=== PATIENT | male | born 1945 | race Caucasian/White ===

== ENCOUNTER 2018-05-15 19:03 | Inpatient (IN) ==
--- NOTE | 2018-05-15 19:27 | Emergency Department Note ---
Weakness HPI - General Chief complaint: Weakness Stated complaint: weakness Time Seen by Provider: 05/15/18 19:12 Source: patient Mode of arrival: wheelchair Limitations: no limitations - History of Present Illness HPI Narrative: Patient's complaining of pain in the left knee and there is been some swelling to his right foot with some erythema to the foot. He is diabetic.. He has been treating it with charcoal putting some black charcoal on the wound in the right lower leg. Patient denies any upper respiratory type signs or symptoms there is been no cough no sputum chest pain. Denies any flulike symptoms does state that his shoulders have been bothering him when one palpates there is no pain in the left he has some slight tenderness to the right shoulder that is been present for several weeks. Patient is a poor historian - Related Data Home Medications Medication Instructions Recorded Confirmed Unobtainable 05/15/18 05/15/18 Allergies Allergy/AdvReac Type Severity Reaction Status Date / Time No Known Drug Allergies Allergy Verified 05/15/18 19:05 Review of Systems All systems ED: reviewed and negative except as stated. Constitutional: Denies: fever, chills Eyes: Denies: eye pain ENT ED: Denies: ear pain Cardiovascular: Denies: chest pain Respiratory: Denies: shortness of breath Gastrointestinal: Denies: abdominal pain, nausea Genitourinary: Denies: dysuria, frequency, urgency Musculoskeletal: Reports: joint pain (Tenderness in left knee), other (Tenderness erythema to the right foot). Denies: back pain, joint swelling Integumentary: Reports: as per HPI Past Medical History - Past Medical History Medical history: Reports: DM Surgical history ED: Reports: non-contributory Family history: Reports: diabetes (Father) - Social History smoking status: Never smoker Alcohol use: Reports: Heavy Drug use: Reports: none Physical Exam Limitations: no limitations General appearance: alert Head: atraumatic, normocephalic Eye: Present: normal appearance, PERRL ENT: normal exam, normal oropharynx, mucous membranes moist Neck: Present: normal inspection, full ROM. Absent: trachea midline Chest: Present: normal inspection, symmetric chest wall rise. Absent: tenderness Respiratory: Present: normal lung sounds bilaterally. Absent: respiratory distress, rales/crackles, wheezes Cardiovascular: Present: regular rate, normal rhythm. Absent: bradycardia, tachycardia Abdominal: Present: soft. Absent: distention, tenderness, guarding, rebound, rigidity Knee: Present: tenderness. Absent: swelling, abrasion Foot/toe: Present: swelling, erythema Back: Present: normal inspection, full ROM. Absent: tenderness Neurological: Present: alert, oriented X3, CN II-XII intact Psychiatric: Present: normal affect, normal mood Course Vital Signs Temperature 97.7 F 05/15/18 19:04 Pulse Rate 112 H 05/15/18 19:04 Respiratory Rate 16 05/15/18 19:04 Blood Pressure 136/83 05/15/18 19:04 Pulse Oximetry (%) 94 05/15/18 19:04 Temperature 100.1 F H 05/15/18 21:19 Pulse Rate 99 H 05/15/18 20:16 Respiratory Rate 26 H 05/15/18 21:19 Blood Pressure 116/97 05/15/18 21:16 Pulse Oximetry (%) 97 05/15/18 21:19 Weakness - MDM Narrative Medical decision making narrative: WBC is 32,200 to hemoglobin 11.9 hematocrit 36.0 lactic acid is 2.0 sodium is 138 potassium 4.1 BUN is 32 the creatinine 2.0 urine test shows 2 WBCs 1 RBCs patient's been running low-grade temperature of 100.1 respiratory rate 24 blood pressure 116/697 pulse ox is reading 97% blood glucose is 215 - Lab Data Result diagrams: 05/15/18 19:41 05/15/18 19:41 Lab Results 05/15/18 05/15/18 05/15/18 Range/Units 19:41 19:41 19:41 WBC 32.2 H* (4.5-11.0) K/mcL RBC 3.68 L (4.50-5.90) M/mcL Hgb 11.9 L (13.5-16.5) g/dL Hct 36.0 L (41.0-55.0) % MCV 97.8 (80.0-100.0) fL MCH 32.3 (26.0-34.0) pg MCHC 33.0 (31.0-36.0) g/dL RDW 13.5 (11.5-14.5) % Plt Count 495 H (140-440) K/mcL MPV 7.8 (7.4-10.4) fL Gran % 94.8 H (38.0-78.0) % Lymph % (Auto) 1.1 L (15.5-49.0) % [place]cl[place] % (Auto) 4.1 (1.0-12.0) % Eos % (Auto) 0 (0.0-7.0) % Baso % (Auto) 0 (0.0-2.0) % Gran # 30.5 H (1.8-8.0) K/mcL Lymph # (Auto) 0.4 L (1.5-4.8) K/mcL [place] # (Auto) 1.3 H (0.1-0.9) K/mcL Eos # (Auto) 0 (0.0-0.7) K/mcL Baso # (Auto) 0 (0.0-0.3) K/mcL Total Counted Seg Neutrophils % (38-78) % Band Neutrophils % (0-10) % Lymphocytes % (15-49) % Monocytes % (Manual) (1-12) % Myelocytes % (0-0) % Platelet Estimate (NORMAL) RBC Morphology (NORMAL) VBG Lactic Acid 2.0 (0.5-2.0) mmol/L Sodium 138 (133-145) mmol/L Potassium 4.1 (3.3-5.1) mmol/L Chloride 99 (96-108) mmol/L Carbon Dioxide 24 (22-30) mmol/L Anion Gap 15.0 (8-16) BUN 32 H (8-23) mg/dl Creatinine 2.0 H (0.7-1.2) mg/dl GFR Calculation 32 Glucose 47 L (70-105) mg/dL Calcium 9.4 (8.6-10.4) mg/dl Total Bilirubin 0.5 (0.0-1.0) mg/dL AST 27 (0-37) U/l ALT 16 (0-40) U/l Alkaline Phosphatase 148 H (39-117) U/L Total Protein 6.9 (5.9-8.4) gm/dL Albumin 3.0 L (3.2-5.2) gm/dL Globulin 3.9 H (2.2-3.7) gm/dL Albumin/Globulin Ratio 0.8 L (1.0-2.3) Urine Color Urine Appearance Urine pH (5.0-9.0) Ur Specific [place] (1.000-1.035) Urine Protein (NEG) mg/dL Urine Glucose (UA) (NEG) mg/dL Urine Ketones (NEG) mg/dL Urine Occult Blood (<0.03) mg/dL Urine Nitrate (NEG) Urine Bilirubin (NEG) mg/dL Urine Urobilinogen (NEG) mg/dL Ur Leukocyte Esterase (NEG) /uL Urine RBC (0-1) /hpf Urine WBC (0-4) /hpf Ur Squamous Epith Cells (0-4) /hpf Amorphous Crystals (0) /hpf Urine Bacteria (0) /hpf Hyaline Casts (0-2) /lpf Urine Mucus (0) /hpf Ur Culture Indicated? 05/15/18 05/15/18 Range/Units 19:41 20:33 WBC (4.5-11.0) K/mcL RBC (4.50-5.90) M/mcL Hgb (13.5-16.5) g/dL Hct (41.0-55.0) % MCV (80.0-100.0) fL MCH (26.0-34.0) pg MCHC (31.0-36.0) g/dL RDW (11.5-14.5) % Plt Count (140-440) K/mcL MPV (7.4-10.4) fL Gran % (38.0-78.0) % Lymph % (Auto) (15.5-49.0) % [place]clennan % (Auto) (1.0-12.0) % Eos % (Auto) (0.0-7.0) % Baso % (Auto) (0.0-2.0) % Gran # (1.8-8.0) K/mcL Lymph # (Auto) (1.5-4.8) K/mcL [place] # (Auto) (0.1-0.9) K/mcL Eos # (Auto) (0.0-0.7) K/mcL Baso # (Auto) (0.0-0.3) K/mcL Total Counted 100 Seg Neutrophils % 89 H (38-78) % Band Neutrophils % 3 (0-10) % Lymphocytes % 1 L (15-49) % Monocytes % (Manual) 6 (1-12) % Myelocytes % 1 H (0-0) % Platelet Estimate Increased A (NORMAL) RBC Morphology Normal (NORMAL) VBG Lactic Acid (0.5-2.0) mmol/L Sodium (133-145) mmol/L Potassium (3.3-5.1) mmol/L Chloride (96-108) mmol/L Carbon Dioxide (22-30) mmol/L Anion Gap (8-16) BUN (8-23) mg/dl Creatinine (0.7-1.2) mg/dl GFR Calculation Glucose (70-105) mg/dL Calcium (8.6-10.4) mg/dl Total Bilirubin (0.0-1.0) mg/dL AST (0-37) U/l ALT (0-40) U/l Alkaline Phosphatase (39-117) U/L Total Protein (5.9-8.4) gm/dL Albumin (3.2-5.2) gm/dL Globulin (2.2-3.7) gm/dL Albumin/Globulin Ratio (1.0-2.3) Urine Color Yellow Urine Appearance Cloudy Urine pH 5.0 (5.0-9.0) Ur Specific [place] 1.017 (1.000-1.035) Urine Protein 100 A (NEG) mg/dL Urine Glucose (UA) Negative (NEG) mg/dL Urine Ketones Neg (NEG) mg/dL Urine Occult Blood 0.03 A (<0.03) mg/dL Urine Nitrate Neg (NEG) Urine Bilirubin Neg (NEG) mg/dL Urine Urobilinogen Neg (NEG) mg/dL Ur Leukocyte Esterase Neg (NEG) /uL Urine RBC 1 (0-1) /hpf Urine WBC 2 (0-4) /hpf Ur Squamous Epith Cells < 1 (0-4) /hpf Amorphous Crystals Few A (0) /hpf Urine Bacteria 0 (0) /hpf Hyaline Casts 10 H (0-2) /lpf Urine Mucus Few (0) /hpf Ur Culture Indicated? No Disposition Pt seen by RN LPN CNA/PA only: No Clinical Impression: Cellulitis Qualifiers: Site of cellulitis: extremity Site of cellulitis of extremity: lower extremity Laterality: right Qualified Code(s): L03.115 - Cellulitis of right lower limb Disposition: Xfer As Inpt ([facility]) Condition: Fair Referrals: Nate Arthur MD [Primary Care Provider] -
[2018-05-15] MEDS ORDERED: DEXTROSE 5%-NS 1,000 ML IV SCH (20:15)
[2018-05-15 20:28] LABS: Basophils # (Auto) 0 K/mcL (0.0-0.3); Basophils % (Auto) 0 % (0.0-2.0); Eosinophils # (Auto) 0 K/mcL (0.0-0.7); Eosinophils % (Auto) 0 % (0.0-7.0); Granulocytes % (Auto) 94.8 % (38.0-78.0); Lymphocytes # (Auto) 0.4 K/mcL (1.5-4.8); Lymphocytes % (Auto) 1.1 % (15.5-49.0); Mean Cell Volume 97.8 fL (80.0-100.0); Monocytes # (Auto) 1.3 K/mcL (0.1-0.9); Monocytes % (Auto) 4.1 % (1.0-12.0); Platelet Count 495 K/mcL (140-440); RBC 3.68 M/mcL (4.50-5.90); Red Cell Distribution Width 13.5 % (11.5-14.5)
[2018-05-15 20:41] LABS: ALT/SGPT 16 U/l (0-40); Albumin/Globulin Ratio 0.8 (1.0-2.3); Alkaline Phosphatase 148 U/L (39-117); Blood Urea Nitrogen 32 mg/dl (8-23)
[2018-05-15] MEDS ORDERED: VANCOMYCIN 1,000 MG in 0.9 % SODIUM CHLORIDE 250 ML IV ONE (20:48)
[2018-05-15 21:13] LABS: Band Neutrophils % 3 % (0-10); Lymphocytes % 1 % (15-49); Monocytes % (Manual) 6 % (1-12); Myelocytes % 1 % (0-0); Platelet Estimate INCREASED (NORMAL); RBC Morphology NORMAL (NORMAL); Segmented Neutrophils % 89 % (38-78)
[2018-05-15] MEDS ORDERED: ACETAMINOPHEN 325 MG TABLET PO ONE (21:14)
[2018-05-15 21:44] LABS: Appearance,Urine CLOUDY; Bacteria,Urine 0 /hpf (0); Bilirubin,Urine NEG (NEG); Color,Urine YELLOW; Glucose,Urine (UA) NEGATIVE (NEG); Leukocyte Esterase,Urine NEG /uL (NEG); Mucus,Urine FEW /hpf (0); Protein,Urine 100 mg/dL (NEG); Specific Gravity,Urine 1.017 (1.000-1.035); Urine Amorphous Crystals FEW /hpf (0); Urine Blood 0.03 mg/dL (<0.03); Urine Hyaline Cast 10 /lpf (0-2); Urine RBC 1 /hpf (0-1); Urine Squamous Epithelial Cell < 1 /hpf (0-4); Urine WBC 2 /hpf (0-4); Urobilinogen,Urine NEG (NEG)
[2018-05-15] MEDS ORDERED: 0.9 % SODIUM CHLORIDE 1,000 ML IV ONE (22:05)
--- NOTE | 2018-05-15 23:15 | Internal Med History&Physical ---
Medical - H&P: [facility] Patient information: Note initiated : 05/15/18 at 11:11 pm Service Date, if different from initiated Date: [] Patient: Solitario Sandoval 72 y/o M admitted on for weakness. Chief Complaint: Right foot swelling and erythema History of present illness: Mr. Sandoval is a 72 year old M with a history of diabetes, hypertension, chronic kidney disease presents the ED for evaluation of swollen red right foot. Patient was in his usual state of health when on Saturday a.m. his right foot was swollen. It is not erythematous. It was not painful. A neighbor placed 8 activated charcoal poultice, which did seem to help the swelling. That continued until today, one somewhere overnight his foot became erythematous. It was noted this morning when his friend came to change the poultice. He noticed that there was pain with flexion his toes. The swelling was actually improved from when it was at its worst. Patient denies any fevers or chills. He's had mild encroachment of the erythema up the ankle this evening. Because of the erythema Lamar presents the ED for evaluation. In the emergency department, his white counts found to be 32,000. Lactate is 2.0. His temperature is 101, his pulse initially was 105-110 respiratory rate 22-23. He's of improved after fluids. He was cultured and received vancomycin. He's been admitted for further treatment of cellulitis and sepsis. Otherwise the patient denies headache, vision changes, sore throat. Said a mild cough for 1 day. No chest pain or tightness, no abdominal pain, nausea or vomiting, diarrhea. No history of stroke, no history of cardiac disease. No history of asthma emphysema, no history of hypothyroidism. He does have a hi story of kidney disease, follows with Dr. Koch. Dr. Arthur is his primary care physician. All systems: reviewed and no additional remarkable complaints except as stated Medical - H&P: PMH Medical history: Diabetes mellitus, type I.5 by his description, treated with regular insulin Hypertension Kidney disease (suspect CKD) Surgical history: No surgeries Pertinent family history: Father had diabetes mellitus Social history: Lives alone, does not smoke, does not drink. Pulse a vegetarian diet. He is a retired campos. Home medications Novolin R, 20-40 units twice daily (purchased at [facility] without prescription) 2 blood pressure medicines, one in the morning and 1 in the evening [facility] is [facility] Medical - H&P: Meds Home Medications Medication Instructions Recorded Confirmed Type Benazepril HCl 40 mg PO DAILY 05/16/18 05/16/18 History amLODIPine BESYLATE [Amlodipine 10 mg PO DAILY 05/16/18 05/16/18 History Besylate] Allergies Allergy/AdvReac Type Severity Reaction Status Date / Time No Known Drug Allergies Allergy Verified 05/15/18 19:05 Medical - H&P: Exam - Constitutional Vitals: Temp Pulse Resp BP Pulse Ox 99.7 F H 83 20 130/68 93 05/15/18 22:03 05/15/18 23:10 05/15/18 23:10 05/15/18 23:01 05/15/18 23:10 Exam: GENERAL: Alert, oriented, in no acute distress. Thin habitus, cooperative, appears stated age. HEENT: Atraumatic. PERRL, conjunctiva clear, no scleral icterus. Hearing grossly intact. Oropharynx with poor dentition, moist mucous membranes, no lip or gum lesions, no pharyngeal erythema or exudate. Tongue midline, palate rises symmetrically. NECK: Supple without meningismus, no thyromegaly RESPIRATORY: Breath sounds clear bilaterally without wheezes or rhonchi. Respiratory effort is unlabored. CARDIOVASCULAR: Regular rate and rhythm, no murmur gallop or rub. No peripheral edema. Carotid pulses 2+ without bruit. Pedal pulses 2+ at DP and PT GI: Abdomen soft, nontender, no guarding or rebound. Bowel sounds are present. No hepatosplenomegaly. LYMPHATIC: No cervical or supraclavicular lymphadenopathy MUSCULOSKELETAL: Right foot with edema, extending to the distal leg. Otherwise, no joint erythema or swelling, normal range of motion in all extremities. SKIN: Right foot has moderate erythema, charcoal discoloration. Medially, patch of erythema extending to distal/medial leg. No crepitus, mild to moderate tenderness. No lymphangitic streaking. NEUROLOGIC: Cranial nerves II through XII grossly intact. Muscle mass normal. Strength 5/5 in the upper and lower extremities. Sensation intact to light touch bilaterally, including the feet PSYCHIATRIC: Alert, oriented x3, normal mood and affect, normal insight. Medical - H&P: Reslt - Labs CBC & Chem 7: 02/08/19 04:02 05/16/18 04:02 Labs: Short CBC 05/15/18 Range/Units 19:41 WBC 32.2 H* (4.5-11.0) K/mcL Hgb 11.9 L (13.5-16.5) g/dL Hct 36.0 L (41.0-55.0) % Plt Count 495 H (140-440) K/mcL BMP 05/15/18 19:41 Sodium 138 Potassium 4.1 Chloride 99 Carbon Dioxide 24 BUN 32 H Creatinine 2.0 H Glucose 47 L Calcium 9.4 Liver Function 05/15/18 Range/Units 19:41 Total Bilirubin 0.5 (0.0-1.0) mg/dL AST 27 (0-37) U/l ALT 16 (0-40) U/l Alkaline Phosphatase 148 H (39-117) U/L Albumin 3.0 L (3.2-5.2) gm/dL Urine 05/15/18 Range/Units 20:33 Urine Color Yellow Urine Appearance Cloudy Urine pH 5.0 (5.0-9.0) Ur Specific [place] 1.017 (1.000-1.035) Urine Protein 100 A (NEG) mg/dL Urine Glucose (UA) Negative (NEG) mg/dL - Impressions Right foot films, reviewed, soft tissue edema, no apparent bony erosions - Imaging and Cardiology Chest x-ray Status: image reviewed by me Additional comments: Clear lung [place]. Medical - H&P: A/P - Narrative A/P Narrative: 72-year-old male with diabetes mellitus, presenting with swelling of the right foot, associated with less than 24 hours now of erythema. Found to have significant leukocytosis, tachycardia and fever consistent with sepsis from cellulitis. Cellulitis of the right foot. No evidence of gas in the tissue, no crepitus on exam. Appears to be a cellulitic infection, no ulcer or deeper infection. Staph and strep possible pathogens. Has received vancomycin in the ED. No healthcare contacts, lower risk for MRSA. Plan: Inpatient admission Ceftriaxone 1 g every 24 hours Follow-up cultures Elevate extremity Sepsis. Not severe sepsis. Secondary to cellulitis. No other apparent source. Plan: Continue fluid resuscitation, antibiotics, treat infections above. Abnormal renal function. Patient does follow Dr. Koch, suspect he does have some baseline renal abnormality, but no old lab values available in the system. Plan: Trend renal function with resuscitation, attempt to get old labs, renally dose medications. Diabetes mellitus. Treated with insulin. Plan: Vegetarian/controlled carbohydrate diet, sliding scale insulin Hypertension. Patient unsure of his home medications. Plan: Attempt to get old records, we'll follow expectantly and use as needed medications for now. CODE STATUS: Full code Prophylaxis: Lovenox, renally dosed
[2018-05-16] MEDS ORDERED: ACETAMINOPHEN 325 MG TABLET PO PRN (00:10)
[2018-05-16] MEDS ORDERED: cefTRIAXone 1 GM in DEXTROSE 5% IN WATER 50 ML IV SCH (00:10)
[2018-05-16] MEDS ORDERED: ONDANSETRON 4 MG/2 ML VIAL IV PRN (00:10)
[2018-05-16] MEDS ORDERED: DEXTROSE 50% 50 ML VIAL IV PRN (00:10)
[2018-05-16] MEDS ORDERED: DEXTROSE 31 GM ORAL.SUSP PO PRN (00:10)
[2018-05-16] MEDS ORDERED: 0.9 % SODIUM CHLORIDE 1,000 ML IV SCH (00:10)
[2018-05-16] MEDS ORDERED: cefTRIAXone 1 GM VIAL ONE (00:23)
[2018-05-16] MEDS: 0.9 % SODIUM CHLORIDE 10 ML SYRINGE IV SCH ×3 (05:01→20:20)
[2018-05-16 06:25] LABS: Basophils # (Auto) 0 K/mcL (0.0-0.3); Basophils % (Auto) 0 % (0.0-2.0); Eosinophils # (Auto) 0 K/mcL (0.0-0.7); Eosinophils % (Auto) 0 % (0.0-7.0); Granulocytes % (Auto) 92.7 % (38.0-78.0); Lymphocytes % (Auto) 3.5 % (15.5-49.0); Mean Cell Volume 98.2 fL (80.0-100.0); Mean Corpuscular HGB Conc 33.5 g/dL (31.0-36.0); Monocytes # (Auto) 1.1 K/mcL (0.1-0.9); Monocytes % (Auto) 3.8 % (1.0-12.0); Platelet Count 438 K/mcL (140-440); RBC 2.99 M/mcL (4.50-5.90); Red Cell Distribution Width 13.5 % (11.5-14.5)
[2018-05-16 06:46] LABS: Blood Urea Nitrogen 30 mg/dl (8-23)
[2018-05-16] MEDS: INSULIN LISPRO 1 UNIT/0.01 ML UNIT SQ SCH ×4 (07:41→20:20)
--- NOTE | 2018-05-16 08:08 | XRay Report ---
HISTORY: Increased weakness FINDINGS: Laterally in the right lower thorax there is an 8 mm round nodular density. There is a linear band of scar or discoid atelectasis at the left costophrenic sulcus. The lungs are otherwise clear. There is no congestive heart failure, pneumonia or pleural effusion. The heart size, mediastinum and antonio are normal. IMPRESSION: Nodular density in the right lower thorax. This is probably a nipple shadow. Scar versus discoid atelectasis laterally at the left lung base Interpreted and Authenticated by: Dany Juan 05/16/18
--- NOTE | 2018-05-16 08:15 | XRay Report ---
HISTORY: Tender red swollen foot FINDINGS: There is mild soft tissue swelling along the dorsal aspect of the metatarsals. No fracture or dislocation are present. There is no bone erosion or periosteal elevation. The joint spaces are normal in width and alignment. There are small dystrophic calcifications in the distal Achilles tendon. The tendon is swollen posterior to the calcaneus. IMPRESSION: Chronic Achilles tendinitis Edema or cellulitis in the forefoot Interpreted and Authenticated by: Dany Juan 05/16/18
--- NOTE | 2018-05-16 08:17 | XRay Report ---
HISTORY: Swollen tender left knee with weakness FINDINGS: No fracture or subluxation are present. The joint spaces are normal in width and alignment. There is a tiny osteophyte along the outer border of the medial femoral condyle. Lateral view reveals a few faint soft tissue calcifications in the infrapatellar fat pad. There is no associated soft tissue swelling. Small joint effusion is present. Scattered plaques are present in the popliteal artery. IMPRESSION: Minor arthritis and small joint effusion Interpreted and Authenticated by: Dany Juan 05/16/18
[2018-05-16] MEDS: ENOXAPARIN 30 MG/0.3 ML SYRINGE SQ SCH (10:32)
--- NOTE | 2018-05-16 14:03 | Internal Med Progress Note ---
Medical - PN: Subj Patient information: Note initiated : 05/16/18 at 1:52 pm Service Date, if different from initiated Date: [] Patient: Solitario Sandoval 72 y/o M admitted on 05/15/18 for weakness. Chief Complaint: Follow-up sepsis/cellulitis Interval history: 05/15 Mr. Sandoval is a 72 year old M with a history of diabetes, hypertension, chronic kidney disease presents the ED for evaluation of swollen red right foot. Patient was in his usual state of health when on Saturday a.m. his right foot was swollen. It is not erythematous. It was not painful. A neighbor placed 8 activated charcoal poultice, which did seem to help the swelling. That continued until today, one somewhere overnight his foot became erythematous. It was noted this morning when his friend came to change the poultice. He noticed that there was pain with flexion his toes. The swelling was actually improved from when it was at its worst. Patient denies any fevers or chills. He's had mild encroachment of the erythema up the ankle this evening. Because of the erythema Lamar presents the ED for evaluation. In the emergency department, his white counts found to be 32,000. Lactate is 2.0. His temperature is 101, his pulse initially was 105-110 respiratory rate 22-23. He's of improved after fluids. He was cultured and received vancomycin. He's been admitted for further treatment of cellulitis and sepsis. Otherwise the patient denies headache, vision changes, sore throat. Said a mild cough for 1 day. No chest pain or tightness, no abdominal pain, nausea or vomiting, diarrhea. No history of stroke, no history of cardiac disease. No history of asthma emphysema, no history of hypothyroidism. He does have a history of kidney disease, follows with Dr. Koch. Dr. Arthur is his primary care physician. 05/16 Starting to feel a little better. Still with some edema on his feet. Blood cultures are now positive for gram-positive cocci in pairs and chains in both sets. Home medications clarified. - Constitutional Vitals: Vital Signs Temp Pulse Resp BP Pulse Ox 99 F 86 16 126/76 91 05/16/18 12:00 05/16/18 04:00 05/16/18 12:05/16/18 12:05/16/18 12:00 Period Temp Pulse Resp BP Sys/Landis Pulse Ox Last 24 Hr 97.6 F-100.1 F 73-112 12-31 115-148/68-102 90-98 Intake and Output 05/15/18 05/16/18 05/16/18 21:59 05:59 13:59 Intake Total 500 1250 1850 Output Total 475 375 Balance 008 369 9353 Weight 140 lb 143 lb 8 oz 143 lb 8 oz Patient Weight 05/17/18 05:59 Weight 143 lb 8 oz Intake & Output: Intake & Output 05/15/18 05/16/18 05/16/18 21:59 05:59 13:59 Intake Total 500 1250 1850 Output Total 475 375 Balance 811 217 3748 Weight 140 lb 143 lb 8 oz 143 lb 8 oz Intake: IV 500 1250 1050 Sodium Chloride 0.9% 1,000 ml @ 1000 1000 100 mls/hr IV .Q10H [facility] Rx#: [id number] Dextrose 5%-Ns IV Solution 1, 500 000 ml @ Wide Open IV BOLUS [facility] Rx#:[id number] Vancomycin 1,000 mg In Sodium 250 Chloride 0.9% 250 ml @ 250 mls/ hr IV ONCE ONE Rx#:[id number] Oral 0 800 Output: Void Amount 475 375 Other: Urine Appearance Clear Urine Color Bright Yellow Exam: Enteral: Nontoxic, no acute distress Chest: Clear, unlabored Cardiac: Regular, no murmur detected. Abdomen soft, nontender Skin/extremities: Decreased edema and erythema of the right foot, 2+ dorsalis pedis pulse. Neuro: Alert, oriented 3, nonfocal good sensation in the feet Medical - PN: Obj Da - Labs CBC & Chem 7: 05/16/18 04:02 05/16/18 04:02 Labs: Abnormal Lab Results 05/16/18 05/16/18 05/15/18 04:02 04:02 20:33 WBC 28.7 H RBC 2.99 L Hgb 9.9 L Hct 29.4 L Plt Count Gran % 92.7 H Lymph % (Auto) 3.5 L Gran # 26.6 H Lymph # (Auto) 1.0 L Page # (Auto) 1.1 H Seg Neutrophils % Lymphocytes % Myelocytes % Platelet Estimate Carbon Dioxide 21 L BUN 30 H Creatinine 1.5 H Glucose 189 H Calcium 8.3 L Alkaline Phosphatase Albumin Globulin Albumin/Globulin Ratio Urine Protein 100 A Urine Occult Blood 0.03 A Amorphous Crystals Few A Hyaline Casts 10 H 05/15/18 05/15/18 05/15/18 19:41 19:41 19:41 WBC 32.2 H* RBC 3.68 L Hgb 11.9 L Hct 36.0 L Plt Count 495 H Gran % 94.8 H Lymph % (Auto) 1.1 L Gran # 30.5 H Lymph # (Auto) 0.4 L Page # (Auto) 1.3 H Seg Neutrophils % 89 H Lymphocytes % 1 L Myelocytes % 1 H Platelet Estimate Increased A Carbon Dioxide BUN 32 H Creatinine 2.0 H Glucose 47 L Calcium Alkaline Phosphatase 148 H Albumin 3.0 L Globulin 3.9 H Albumin/Globulin Ratio 0.8 L Urine Protein Urine Occult Blood Amorphous Crystals Hyaline Casts Microbiology 05/15/18 20:55 Blood Culture - Preliminary Blood Gram positive cocci 05/15/18 20:50 Blood Culture - Preliminary Blood Gram positive cocci Meds: Medications Acetaminophen (Tylenol) 650 mg PO Q6HP PRN PRN Reason: PAIN/FEVER > 101 Hydrocodone Bitart/Acetaminophen ([place] 5/325mg) 1 tab PO Q4HP PRN PRN Reason: PAIN LEVEL 3-6 Amlodipine Besylate (Norvasc) 10 mg PO DAILY [facility] Ceftriaxone Sodium (Rocephin) 1 gm IV Q24H [facility] Dextrose (Dextrose 50%) 0 ml IV UD PRN PRN Reason: Hypoglycemia Diagnostic Test (Pha) (Accu-Chek) 1 each FS [facility] Last Admin: 05/16/18 12:22 Dose: 1 each Documented by: Enoxaparin Sodium (Lovenox) 30 mg SQ DAILY [facility] Last Admin: 05/16/18 10:32 Dose: 30 mg Documented by: Glucose (Insta-Glucose) 15 gm PO PRN PRN PRN Reason: Hypoglycemia Insulin Human Lispro (Humalog) 0 unit SQ [facility]; Protocol Last Admin: 05/16/18 12:30 Dose: 12 units Documented by: Lisinopril (Zestril) 40 mg PO DAILY [facility] Ondansetron HCl (Zofran) 4 mg IV Q6HP PRN PRN Reason: Nausea And Vomiting Sodium Chloride (Saline Flush) 10 ml IV Q8 [facility] Last Admin: 05/16/18 05:01 Dose: Not Given Documented by: Medical - PN: A/P - Narrative A/P Narrative: 72-year-old male with diabetes mellitus, presenting with swelling of the right foot, associated with less than 24 hours now of erythema. Found to have significant leukocytosis, tachycardia and fever consistent with sepsis from cellulitis. Cellulitis of the right foot. No evidence of gas in the tissue, no crepitus on exam. Appears to be a cellulitic infection, no ulcer or deeper infection. Staph and strep possible pathogens. Has received vancomycin in the ED. No healthcare contacts, lower risk for MRSA. Blood cultures now positive for gram- positive cocci in pairs and chains consistent with strep. Plan: Continue with ceftriaxone, follow up final cultures, continue to elevate extremity Sepsis. Not severe sepsis. Secondary to cellulitis. No other apparent source. Resolving. Plan: Continue antibiotics, treat infections above. Abnormal renal function. Patient does follow Dr. Koch, suspect he does have some baseline renal abnormality, but no old lab values available in the system. Creatinine down to 1.5 today. Plan: Continue to trend renal function with resuscitation, attempt to get old labs, renally dose medications. Diabetes mellitus. Treated with insulin. Plan: Vegetarian/controlled carbohydrate diet, sliding scale insulin Hypertension. Patient unsure of his home medications. Plan: Attempt to get old records, we'll follow expectantly and use as needed medications for now. CODE STATUS: Full code Prophylaxis: Lovenox, renally dosed Medical - PN: Qual - Stroke Symptom Onset Unknown: No - VTE Deep Vein Thrombosis/Pulmonary Embolism Present on Admission: No
[2018-05-16] MEDS: cefTRIAXone 1 GM VIAL IV SCH (14:32)
[2018-05-17 05:52] LABS: Mean Cell Volume 98.7 fL (80.0-100.0); Mean Corpuscular HGB Conc 33.5 g/dL (31.0-36.0); Platelet Count 466 K/mcL (140-440); RBC 3.08 M/mcL (4.50-5.90); Red Cell Distribution Width 13.7 % (11.5-14.5)
[2018-05-17 06:42] LABS: ALT/SGPT 14 U/l (0-40); Albumin/Globulin Ratio 0.6 (1.0-2.3); Alkaline Phosphatase 96 U/L (39-117); Bilirubin,Direct < 0.2 mg/dL (0.0-0.3); Blood Urea Nitrogen 31 mg/dl (8-23); Gamma Glutamyl Transpeptidase 12 U/L (8-61); Lymphocytes % 10 % (15-49); Monocytes % (Manual) 2 % (1-12); Platelet Estimate INCREASED (NORMAL); RBC Morphology NORMAL (NORMAL); Segmented Neutrophils % 88 % (38-78); Uric Acid 6.8 mg/dL (2.5-8.0)
[2018-05-17] MEDS: 0.9 % SODIUM CHLORIDE 10 ML SYRINGE IV SCH ×3 (07:43→21:30)
[2018-05-17] MEDS: amLODIPine 10 MG TABLET PO SCH (08:14)
[2018-05-17] MEDS: cefTRIAXone 1 GM VIAL IV SCH (08:15)
[2018-05-17] MEDS: ENOXAPARIN 30 MG/0.3 ML SYRINGE SQ SCH (08:15)
[2018-05-17] MEDS: INSULIN LISPRO 1 UNIT/0.01 ML UNIT SQ SCH ×5 (08:15→21:31)
[2018-05-17] MEDS: LISINOPRIL 20 MG TABLET PO SCH ×2 (08:16→18:48)
[2018-05-17] MEDS ORDERED: ACETAMINOPHEN 650 MG/65 ML BOTTLE IV PRN (11:10)
[2018-05-17] MEDS ORDERED: cefTRIAXone 1 GM VIAL IV SCH (11:40)
--- NOTE | 2018-05-17 11:53 | Internal Med Progress Note ---
Medical - PN: Subj Patient information: Note initiated : 05/17/18 at 11:32 am Service Date, if different from initiated Date: [] Patient: Solitario Sandoval a 72 y/o M admitted on 05/15/18 for weakness. Chief Complaint: [] Interval history: 05/15 Mr. Sandoval is a 72 year old M with a history of diabetes, hypertension, chronic kidney disease presents the ED for evaluation of swollen red right foot. Patient was in his usual state of health when on Saturday a.m. his right foot was swollen. It is not erythematous. It was not painful. A neighbor placed 8 activated charcoal poultice, which did seem to help the swelling. That continued until today, one somewhere overnight his foot became erythematous. It was noted this morning when his friend came to change the poultice. He noticed that there was pain with flexion his toes. The swelling was actually improved from when it was at its worst. Patient denies any fevers or chills. He's had mild encroachment of the erythema up the ankle this evening. Because of the erythema Lamar presents the ED for evaluation. In the emergency department, his white counts found to be 32,000. Lactate is 2.0. His temperature is 101, his pulse initially was 105-110 respiratory rate 22-23. He's of improved after fluids. He was cultured and received vancomycin. He's been admitted for further treatment of cellulitis and sepsis. Otherwise the patient denies headache, vision changes, sore throat. Said a mild cough for 1 day. No chest pain or tightness, no abdominal pain, nausea or vomiting, diarrhea. No history of stroke, no history of cardiac disease. No history of asthma emphysema, no history of hypothyroidism. He does have a history of kidney disease, follows with Dr. Koch. Dr. Arthur is his primary care physician. 05/16 Starting to feel a little better. Still with some edema on his feet. Blood cultures are now positive for gram-positive cocci in pairs and chains in both sets. Home medications clarified. 05/17-patient complains of excruciating pain left knee. On exam left knee is swollen and tender. Case discussed with Dr. Zarate orthopedics for effusion tap. Case discussed with infectious disease specialist in light of strep pneumo and blood cultures. Pending surveillance cultures. Echocardiogram performed await results. Antibiotics changed to cefazolin as per ID recommendations. patient will be kept n.p.o. as per orthopedic recommendations. - Constitutional Vitals: Vital Signs Temp Pulse Resp BP Pulse Ox 98.9 F 92 H 20 130/73 91 05/17/18 07:27 05/17/18 03:33 05/17/18 07:27 05/17/18 07:27 05/17/18 07:27 Period Temp Pulse Resp BP Sys/Landis Pulse Ox Last 24 Hr 98.6 F-99.4 F 85-92 16-20 116-137/71-76 90-95 Intake and Output 05/16/18 05/17/18 05/17/18 21:59 05:59 13:59 Intake Total 440 0 120 Output Total 125 425 325 Balance 315 -425 -205 Weight 144 lb Intake & Output: Intake & Output 05/16/18 05/17/18 05/17/18 21:59 05:59 13:59 Intake Total 440 0 120 Output Total 125 425 325 Balance 315 -425 -205 Weight 144 lb Intake: Oral 440 0 120 Output: Urine Catheter Amount 275 Void Amount 125 150 325 Other: Meal Dinner Breakfast Percent of Meal Consumed 50% 75% Feeding Ability Independent Independent Urine Appearance Clear Clear Urine Color Dark Yellow Pale Urine Odor Normal Normal General appearance: no acute distress Exam: Left knee swollen and erythematous Right ankle swelling improved Patient anxious No labored breathing Medical - PN: Obj Da - Labs CBC & Chem 7: 05/17/18 04:30 05/17/18 04:30 Labs: Abnormal Lab Results 05/17/18 05/17/18 05/16/18 04:30 04:30 04:02 WBC 24.3 H RBC 3.08 L Hgb 10.2 L Hct 30.4 L Plt Count 466 H Gran % Lymph % (Auto) Gran # Lymph # (Auto) Ford # (Auto) Seg Neutrophils % 88 H Lymphocytes % 10 L Myelocytes % Platelet Estimate Increased A Carbon Dioxide 21 L 21 L BUN 31 H 30 H Creatinine 1.4 H 1.5 H Glucose 131 H 189 H Calcium 8.5 L 8.3 L Alkaline Phosphatase Total Protein 5.3 L Albumin 2.0 L Globulin Albumin/Globulin Ratio 0.6 L Urine Protein Urine Occult Blood Amorphous Crystals Hyaline Casts 05/16/18 05/15/18 05/15/18 04:02 20:33 19:41 WBC 28.7 H RBC 2.99 L Hgb 9.9 L Hct 29.4 L Plt Count Gran % 92.7 H Lymph % (Auto) 3.5 L Gran # 26.6 H Lymph # (Auto) 1.0 L Ford # (Auto) 1.1 H Seg Neutrophils % 89 H Lymphocytes % 1 L Myelocytes % 1 H Platelet Estimate Increased A Carbon Dioxide BUN Creatinine Glucose Calcium Alkaline Phosphatase Total Protein Albumin Globulin Albumin/Globulin Ratio Urine Protein 100 A Urine Occult Blood 0.03 A Amorphous Crystals Few A Hyaline Casts 10 H 05/15/18 05/15/18 19:41 19:41 WBC 32.2 H* RBC 3.68 L Hgb 11.9 L Hct 36.0 L Plt Count 495 H Gran % 94.8 H Lymph % (Auto) 1.1 L Gran # 30.5 H Lymph # (Auto) 0.4 L Ford # (Auto) 1.3 H Seg Neutrophils % Lymphocytes % Myelocytes % Platelet Estimate Carbon Dioxide BUN 32 H Creatinine 2.0 H Glucose 47 L Calcium Alkaline Phosphatase 148 H Total Protein Albumin 3.0 L Globulin 3.9 H Albumin/Globulin Ratio 0.8 L Urine Protein Urine Occult Blood Amorphous Crystals Hyaline Casts Meds: Medications Acetaminophen (Tylenol) 650 mg PO Q6HP PRN PRN Reason: PAIN/FEVER > 101 Hydrocodone Bitart/Acetaminophen ([place] 5/325mg) 1 tab PO Q4HP PRN PRN Reason: PAIN LEVEL 3-6 Amlodipine Besylate (Norvasc) 10 mg PO DAILY [facility] Last Admin: 05/17/18 08:14 Dose: 10 mg Documented by: Ceftriaxone Sodium (Rocephin) 1 gm IV Q24H [facility] Last Admin: 05/17/18 08:15 Dose: 1 gm Documented by: Dextrose (Dextrose 50%) 0 ml IV UD PRN PRN Reason: Hypoglycemia Diagnostic Test (Pha) (Accu-Chek) 1 each FS ACHS [facility] Last Admin: 05/17/18 07:42 Dose: 1 each Documented by: Enoxaparin Sodium (Lovenox) 30 mg SQ DAILY [facility] Last Admin: 05/17/18 08:15 Dose: 30 mg Documented by: Glucose (Insta-Glucose) 15 gm PO PRN PRN PRN Reason: Hypoglycemia Acetaminophen (Ofirmev) 650 mg in 65 mls @ 130 mls/hr IV Q6HP PRN PRN Reason: PAIN/FEVER > 101 Insulin Human Lispro (Humalog) 0 unit SQ ACHS [facility]; Protocol Last Admin: 05/17/18 08:15 Dose: 2 units Documented by: Lisinopril (Zestril) 40 mg PO DAILY [facility] Last Admin: 05/17/18 08:16 Dose: 40 mg Documented by: Ondansetron HCl (Zofran) 4 mg IV Q6HP PRN PRN Reason: Nausea And Vomiting Sodium Chloride (Saline Flush) 10 ml IV Q8 [facility] Last Admin: 05/17/18 07:43 Dose: 10 ml Documented by: Medical - PN: A/P - Time Spent With Patient Total time spent is greater than 50% in coordination of care (as documented) at patient's floor/unit and/or counseling patient: 25 - 35 minutes (1) Cellulitis Status: Acute Assessment and plan: 72-year-old male with diabetes mellitus, presenting with swelling of the right foot, associated with less than 24 hours now of erythema. Found to have significant leukocytosis, tachycardia and fever consistent with sepsis from cellulitis. * Severe sepsis secondary to GPC bacteremia-on broad antibiotic coverage. ID consulted. Likely source right foot cellulitis. White count down from 32,000-> 24,000. Improving lactate. Antibiotic D escalated to cefazolin as per ID recommendations for strep pneumo bacteremia * Strep pneumo bacteremia * Left knee pain/effusion-high likelihood of bacterial seeding. Orthopedics consulted. Joint aspiration today. * Cellulitis of the right foot-continue management as above * Acute renal failure secondary to sepsis and end organ dysfunction-creatinine improved from 2-1.4 * Diabetes mellitus. SSI/CCD * Hypertension -Meds on hold in light of severe sepsis * CODE STATUS: Full code * Prophylaxis: Lovenox Plan * Switch antibiotics to cefazolin 2 g every 8 * surveillance cultures * Pain management and IV Tylenol * Orthopedics consult * N.p.o. * Restart antihypertensives once systolics over 140 and sepsis improves * Monitor renal function Current Visit: Yes Medical - PN: Qual - Stroke Symptom Onset Unknown: No - VTE Deep Vein Thrombosis/Pulmonary Embolism Present on Admission: No
[2018-05-17] MEDS ORDERED: PROMETHAZINE 25 MG/ML VIAL IV PRN (13:32)
[2018-05-17] MEDS ORDERED: NALOXONE HCL 0.4 MG/ML VIAL IV PRN (13:32)
[2018-05-17] MEDS ORDERED: ACETAMINOPHEN 1,000 MG/100 ML BOTTLE IV ONE (13:32)
[2018-05-17] MEDS ORDERED: LACTATED RINGERS 250 ML IV PRN (13:32)
[2018-05-17] MEDS ORDERED: fentaNYL 100 MCG/2 ML VIAL IV PRN (13:32)
[2018-05-17] MEDS ORDERED: IPRATROPIUM/ALBUTEROL 3 ML AMPUL.NEB NEB PRN (13:32)
[2018-05-17] MEDS ORDERED: ONDANSETRON 4 MG/2 ML VIAL IV PRN (13:32)
[2018-05-17] MEDS ORDERED: MEPERIDINE 25 MG/ML SYRINGE IV PRN (13:32)
[2018-05-17] MEDS ORDERED: FLUMAZENIL 0.1 MG/ML ML IV PRN (13:32)
[2018-05-17] MEDS ORDERED: diphenhydrAMINE 50 MG/ML VIAL IV PRN (13:32)
[2018-05-17] MEDS ORDERED: BENZOCAINE/MENTHOL 1 LOZENGE PO PRN (13:32)
[2018-05-17] MEDS ORDERED: LACTATED RINGERS 1,000 ML IV SCH (13:45)
[2018-05-17] MEDS ORDERED: PROPOFOL 200 MG/20 ML VIAL IV ONE (13:55)
[2018-05-17] MEDS ORDERED: DEXAMETHASONE 10 MG/ML VIAL IV ONE (13:55)
[2018-05-17] MEDS ORDERED: SUCCINYLCHOLINE 20 MG/ML ML IV ONE (13:55)
[2018-05-17] MEDS ORDERED: fentaNYL 100 MCG/2 ML VIAL IV ONE (13:55)
[2018-05-17] MEDS ORDERED: ONDANSETRON 4 MG/2 ML VIAL IV ONE (13:55)
[2018-05-17] MEDS ORDERED: MIDAZOLAM 5 MG/5 ML VIAL IV ONE (13:55)
[2018-05-17] MEDS ORDERED: LIDOCAINE HCL/PF 100 MG/5 ML SYRINGE IV ONE (13:55)
--- NOTE | 2018-05-17 14:13 | History and Physical Report ---
DATE OF ADMISSION: 05/15/2018 ADDENDUM ASSESSMENT: Septic joint involving the left knee. PLAN: Today, I aspirated approximately 50 mL of purulent synovial fluid indicative of an infection. I did send the synovial fluid out for culture, white blood cells, Gram stain, crystals, protein, glucose, etc. I do think it is clearly a septic knee and would require a washout and arthroscopic I and D of the left knee prior to receiving culture results. She will then likely be on antibiotics pending culture results. I did consent for I and D of the left knee, and the patient agrees with this plan, and Dr. Zarate was consulted and agrees with this plan. RSM:in Job ID: [id number] Doc ID: [id number] Abilio Cao PA-C
[2018-05-17] MEDS ORDERED: BUPIVACAINE W/EPI 0.5% 50 ML VIAL IJ ONE (14:34)
--- NOTE | 2018-05-17 14:42 | Brief Operative Note ---
Date of procedure: 05/17/18 Pre-op diagnosis: septic L knee Post-op diagnosis: same (septic knee plus meniscal tear) Procedure: I and D with meniscal debridement Grafts/Implants: No Anesthesia: GETA Findings: tear medial meniscus complex Complications: none Surgeon: Froylan Zarate Consulting Engineer: Abilio Cao Estimated blood loss (cc): 5 Specimens Removed/Pathology: none sent Condition: stable Disposition: PACU
[2018-05-17] MEDS: ceFAZolin 1 GM VIAL IV SCH ×2 (16:12→21:30)
[2018-05-18 05:19] LABS: Mean Cell Volume 97.8 fL (80.0-100.0); Mean Corpuscular HGB Conc 33.5 g/dL (31.0-36.0); Platelet Count 478 K/mcL (140-440); RBC 3.15 M/mcL (4.50-5.90); Red Cell Distribution Width 12.8 % (11.5-14.5)
[2018-05-18 05:39] LABS: ALT/SGPT 13 U/l (0-40); Albumin 1.9 gm/dL (3.2-5.2); Albumin/Globulin Ratio 0.5 (1.0-2.3); Alkaline Phosphatase 94 U/L (39-117); Bilirubin,Direct < 0.2 mg/dL (0.0-0.3); Blood Urea Nitrogen 36 mg/dl (8-23); Gamma Glutamyl Transpeptidase 14 U/L (8-61)
[2018-05-18] MEDS: 0.9 % SODIUM CHLORIDE 10 ML SYRINGE IV SCH ×3 (05:49→21:07)
[2018-05-18] MEDS: ceFAZolin 1 GM VIAL IV SCH ×3 (05:49→21:07)
[2018-05-18 06:41] LABS: Lymphocytes % 2 % (15-49); Monocytes % (Manual) 1 % (1-12); Myelocytes % 1 % (0-0); Platelet Estimate INCREASED (NORMAL); RBC Morphology NORMAL (NORMAL); Segmented Neutrophils % 96 % (38-78)
--- NOTE | 2018-05-18 08:04 | Orthopedic Progress Note ---
Subjective Patient information: Note initiated : 05/18/18 at 8:02 am Service Date, if different from initiated Date: [] Patient: Solitario Sandoval 72 y/o M admitted on 05/15/18 for weakness. Chief Complaint: [S/p Arthroscopic I&D of left knee for septic joint] Patient is doing well today and has improved ROM of the knee. He has been able to now able and stand by himself. He denies any new onset pain, fever, chills, SOA, or lower extremity paresthesias/weakness. Principal diagnosis: Left septic knee Objective Vital signs: Vital Signs Temp Pulse Resp BP BP Pulse Ox 05/18/18 03:40 97.7 F 71 12 116/68 91 05/17/18 23:40 97.5 F 69 16 131/75 95 05/17/18 19:25 97.6 F 79 16 120/74 91 05/17/18 16:16 94 05/17/18 16:05 66 126/76 05/17/18 15:50 69 127/76 05/17/18 15:32 98.0 F 70 20 125/77 96 05/17/18 15:05 97.8 F 76 14 139/78 96 05/17/18 15:00 78 14 130/77 96 05/17/18 14:55 76 14 118/67 96 05/17/18 14:48 97.7 F 80 14 107/56 97 05/17/18 12:00 98 F 22 127/75 96 Intake and Output 05/17/18 05/18/18 05/18/18 21:59 05:59 13:59 Intake Total 940 300 Output Total 675 465 Balance 265 -165 Intake: IV 100 Oral 240 300 IV - Manual Only 600 Output: Drainage 15 Left Knee 15 Void Amount 675 450 Other: Meal Dinner Percent of Meal Consumed 100% Feeding Ability Independent Urine Appearance Clear Clear Urine Color Bright Yellow Bright Yellow Urine Odor Normal Stool Size Small Stool Color Brown Stool Consistency Soft # Voids 1 # Bowel Movements 1 Weight 145 lb Intake & Output: Intake & Output 05/17/18 05/18/18 05/18/18 21:59 05:59 13:59 Intake Total 940 300 Output Total 675 465 Balance 265 -165 Weight 145 lb Intake: IV 100 Oral 240 300 IV - Manual Only 600 Output: Drainage 15 Left Knee 15 Void Amount 675 450 Other: Meal Dinner Percent of Meal Consumed 100% Feeding Ability Independent Urine Appearance Clear Clear Urine Color Bright Yellow Bright Yellow Urine Odor Normal Stool Size Small Stool Color Brown Stool Consistency Soft # Voids 1 # Bowel Movements 1 Incision: Yes healing Incision clean and dry: Yes Dressing: Yes clean, Yes dry, Yes intact Weight bearing status: full Neurological exam IM: Yes alert, Yes oriented X3, Yes motor sensory intact, Yes neurovascular intact Extremities exam IM: Yes calf tenderness (negative bilaterally), Yes full ROM, Yes joint swelling (mild left knee swelling), Yes Kaelyn's sign (negative bilaterally), Yes Foot pink and warm, Yes neurovascular intact - Labs CBC & BMP: 05/18/18 04:15 05/18/18 04:15 Labs: 05/18/18 05/17/18 05/16/18 04:15 04:30 04:02 Hgb 10.3 L 10.2 L 9.9 L Hct 30.8 L 30.4 L 29.4 L 05/15/18 19:41 Hgb 11.9 L Hct 36.0 L Assessment and Plan (1) Septic joint of left knee joint Patient is doing well s/p arthroscopic I&D of left knee. Continue broad spectrum abx per Dr. Callahan and infectious disease until culture results of left knee synovial fluid return. May ambulate as tolerated. Status: Acute
[2018-05-18] MEDS: ENOXAPARIN 30 MG/0.3 ML SYRINGE SQ SCH (08:51)
[2018-05-18] MEDS: amLODIPine 10 MG TABLET PO SCH (08:52)
[2018-05-18] MEDS: INSULIN LISPRO 1 UNIT/0.01 ML UNIT SQ SCH ×5 (08:56→21:37)
--- NOTE | 2018-05-18 09:35 | History and Physical Report ---
DATE OF ADMISSION: 05/15/2018 I originally did do a consult with an addendum and I see the addendum in the records but do not see rest of the consult, so I will re-dictate the consult to add to the addendum which already seems to be in the computer. CHIEF COMPLAINT: Left knee pain. HISTORY OF PRESENT ILLNESS: This is a 72-year-old male who presents with left knee pain which he states began while in the hospital approximately three to four days ago without any injury. He was initially admitted through the Emergency Department for sepsis and cellulitis of the right foot. I was consulted by Dr. Callahan as he was concerned about a septic knee. In the Emergency Department, he presented with a white blood cell count of 32,000 with an elevated temperature of 101 and was also tachypneic. He received vancomycin in the Emergency Department. The patient does not have any more complaints today. PAST MEDICAL HISTORY: Diabetes mellitus, hypertension, and chronic kidney disease. PAST SURGICAL HISTORY: The patient denies any surgeries. FAMILY HISTORY: Father has a history of diabetes mellitus. SOCIAL HISTORY: The patient lives alone. Denies any alcohol or tobacco use. HOME MEDICATIONS: The patient takes Novolin R 20 to 40 units twice daily as well as benazepril 40 mg p.o. daily and amlodipine 10 mg p.o. daily. ALLERGIES: No known drug allergies. PHYSICAL EXAMINATION: VITAL SIGNS: Initial vitals were temperature 99.7 degrees Fahrenheit, pulse 83, respirations 20, blood pressure 130/68, and pulse ox 93% on room air. GENERAL: The patient is alert and oriented x3 is in no acute distress. HEENT: Atraumatic. Pupils are equal, round, and reactive to light and accommodation. Conjunctivae are clear. Hearing is grossly intact. ENT is otherwise unremarkable. NECK: Supple. No thyromegaly. RESPIRATORY: Lungs are clear to auscultation bilaterally without any wheezes, rhonchi, or rales. His respiratory effort does appear to be unlabored. CARDIOVASCULAR: Heart has regular rate and rhythm without murmur. ABDOMEN: The abdomen is soft, nontender, and nondistended. Bowel sounds present in all 4 quadrants. There is no tenderness to palpation. MUSCULOSKELETAL: Left knee inspection reveals diffuse swelling throughout the knee as well as a suprapatellar effusion. There is no erythema or ecchymosis noted. Passive and active range of motion is significantly limited due to knee pain. There is diffuse tenderness to palpation. EXTREMITIES: Right lower extremity is neurovascularly intact. NEUROLOGIC: Bilateral upper and lower extremities are neurovascularly intact without any neurological deficits. The patient is alert and oriented x3. PSYCHIATRIC: Normal mood and affect. LABORATORY DATA: He does have a white blood cell count of 24.3 with a red blood cell count of 3.08, hemoglobin 10.2, and hematocrit 30.4. His platelet count is 466. Lactic acid is 2.0. CMP shows elevated an BUN of 31, creatinine 1.4, and glucose of 131. UA has an elevated protein level of 100, occult blood 23. Microscopy shows only hyaline casts of 10 and a few amorphous crystals without any other abnormalities. PROCEDURES: I did left knee aspiration, which included approximately 3 mL of lidocaine as an anesthetic, and I was then able to aspirate approximately 50 mL of purulent synovial fluid. The procedure was tolerated well with no complications. Please add my prior addendum of this patient attached to this consult. ALEXANDR:en Job ID: [id number] Doc ID: [id number] Abilio Cao PA-C
[2018-05-18 09:58] LABS: Appearance,Synovial Fluid CLOUDY; Color,Synovial Fluid YELLOW
[2018-05-18 11:03] LABS: Lymphocytes,Synovial Fluid 2 %; Neutrophils,Synovial Fluid 96 % (0-25); Other Cells,Synovial Fluid 2 %
--- NOTE | 2018-05-18 11:05 | Internal Med Progress Note ---
Medical - PN: Subj Patient information: Note initiated : 05/18/18 at 11:02 am Service Date, if different from initiated Date: [] Patient: Solitario Sandoval a 72 y/o M admitted on 05/15/18 for weakness. Chief Complaint: [] Interval history: 05/15 Mr. Sandoval is a 72 year old M with a history of diabetes, hypertension, chronic kidney disease presents the ED for evaluation of swollen red right foot. Patient was in his usual state of health when on Saturday a.m. his right foot was swollen. It is not erythematous. It was not painful. A neighbor placed 8 activated charcoal poultice, which did seem to help the swelling. That continued until today, one somewhere overnight his foot became erythematous. It was noted this morning when his friend came to change the poultice. He noticed that there was pain with flexion his toes. The swelling was actually improved from when it was at its worst. Patient denies any fevers or chills. He's had mild encroachment of the erythema up the ankle this evening. Because of the erythema Lamar presents the ED for evaluation. In the emergency department, his white counts found to be 32,000. Lactate is 2.0. His temperature is 101, his pulse initially was 105-110 respiratory rate 22-23. He's of improved after fluids. He was cultured and received vancomycin. He's been admitted for further treatment of cellulitis and sepsis. Otherwise the patient denies headache, vision changes, sore throat. Said a mild cough for 1 day. No chest pain or tightness, no abdominal pain, nausea or vomiting, diarrhea. No history of stroke, no history of cardiac disease. No history of asthma emphysema, no history of hypothyroidism. He does have a history of kidney disease, follows with Dr. Koch. Dr. Arthur is his primary care physician. 05/16 Starting to feel a little better. Still with some edema on his feet. Blood cultures are now positive for gram-positive cocci in pairs and chains in both sets. Home medications clarified. 05/17-patient complains of excruciating pain left knee. On exam left knee is swollen and tender. Case discussed with Dr. Zarate orthopedics for effusion tap. Case discussed with infectious disease specialist in light of strep pneumo and blood cultures. Pending surveillance cultures. Echocardiogram performed await results. Antibiotics changed to cefazolin as per ID recommendations. patient will be kept n.p.o. as per orthopedic recommendations. 05/18-purulent joint aspirate left knee, cell count 63,900. Likely hematogenous septic arthritis. On antibiotic coverage. Status post joint washout/I&D. Surveillance cultures negative. White count persistent elevation at 26.3. Check baseline CRP and trend. ID consulted. PICC line in 24-48 hours if surveillance cultures negative - Constitutional Vitals: Vital Signs Temp Pulse Resp BP Pulse Ox 98.1 F 77 16 131/74 92 05/18/18 08:00 05/18/18 08:00 05/18/18 08:00 05/18/18 08:00 05/18/18 08:00 Period Temp Pulse Resp BP Sys/Landis Pulse Ox Last 24 Hr 97.5 F-98.1 F 66-80 12-22 107-139/56-78 91-97 Intake and Output 05/17/18 05/18/18 05/18/18 21:59 05:59 13:59 Intake Total 940 300 360 Output Total 675 465 Balance 265 -165 360 Weight 145 lb Intake & Output: Intake & Output 05/17/18 05/18/18 05/18/18 21:59 05:59 13:59 Intake Total 940 300 360 Output Total 675 465 Balance 265 -165 360 Weight 145 lb Intake: IV 100 Oral 240 300 360 IV - Manual Only 600 Output: Drainage 15 Left Knee 15 Void Amount 675 450 Other: Meal Dinner Breakfast Percent of Meal Consumed 100% 75% Feeding Ability Independent Independent Urine Appearance Clear Clear Urine Color Bright Yellow Bright Yellow Urine Odor Normal Stool Size Small Stool Color Brown Stool Consistency Soft # Voids 1 # Bowel Movements 1 General appearance: no acute distress Exam: Alert sitting on chair Left knee dressing in place postop dressing Right ankle swelling improved No anxiety Nonlabored breathing Medical - PN: Obj Da - Labs CBC & Chem 7: 05/18/18 04:15 05/18/18 04:15 Labs: Abnormal Lab Results 05/18/18 05/18/18 05/17/18 04:15 04:15 04:30 WBC 26.3 H RBC 3.15 L Hgb 10.3 L Hct 30.8 L Plt Count 478 H Gran % Lymph % (Auto) Gran # Lymph # (Auto) Lyon # (Auto) Seg Neutrophils % 96 H Lymphocytes % 2 L Myelocytes % 1 H Platelet Estimate Increased A Carbon Dioxide 21 L 21 L BUN 36 H 31 H Creatinine 1.5 H 1.4 H Glucose 323 H 131 H Calcium 8.1 L 8.5 L Alkaline Phosphatase Total Protein 5.4 L 5.3 L Albumin 1.9 L 2.0 L Globulin Albumin/Globulin Ratio 0.5 L 0.6 L Urine Protein Urine Occult Blood Amorphous Crystals Hyaline Casts 05/17/18 05/16/18 05/16/18 04:30 04:02 04:02 WBC 24.3 H 28.7 H RBC 3.08 L 2.99 L Hgb 10.2 L 9.9 L Hct 30.4 L 29.4 L Plt Count 466 H Gran % 92.7 H Lymph % (Auto) 3.5 L Gran # 26.6 H Lymph # (Auto) 1.0 L Lyon # (Auto) 1.1 H Seg Neutrophils % 88 H Lymphocytes % 10 L Myelocytes % Platelet Estimate Increased A Carbon Dioxide 21 L BUN 30 H Creatinine 1.5 H Glucose 189 H Calcium 8.3 L Alkaline Phosphatase Total Protein Albumin Globulin Albumin/Globulin Ratio Urine Protein Urine Occult Blood Amorphous Crystals Hyaline Casts 05/15/18 05/15/18 05/15/18 20:33 19:41 19:41 WBC RBC Hgb Hct Plt Count Gran % Lymph % (Auto) Gran # Lymph # (Auto) Lyon # (Auto) Seg Neutrophils % 89 H Lymphocytes % 1 L Myelocytes % 1 H Platelet Estimate Increased A Carbon Dioxide BUN 32 H Creatinine 2.0 H Glucose 47 L Calcium Alkaline Phosphatase 148 H Total Protein Albumin 3.0 L Globulin 3.9 H Albumin/Globulin Ratio 0.8 L Urine Protein 100 A Urine Occult Blood 0.03 A Amorphous Crystals Few A Hyaline Casts 10 H 05/15/18 19:41 WBC 32.2 H* RBC 3.68 L Hgb 11.9 L Hct 36.0 L Plt Count 495 H Gran % 94.8 H Lymph % (Auto) 1.1 L Gran # 30.5 H Lymph # (Auto) 0.4 L Lyon # (Auto) 1.3 H Seg Neutrophils % Lymphocytes % Myelocytes % Platelet Estimate Carbon Dioxide BUN Creatinine Glucose Calcium Alkaline Phosphatase Total Protein Albumin Globulin Albumin/Globulin Ratio Urine Protein Urine Occult Blood Amorphous Crystals Hyaline Casts Meds: Medications Acetaminophen (Tylenol) 650 mg PO Q6HP PRN PRN Reason: PAIN/FEVER > 101 Hydrocodone Bitart/Acetaminophen (Gardner 5/325mg) 1 tab PO Q4HP PRN PRN Reason: PAIN LEVEL 3-6 Amlodipine Besylate (Norvasc) 10 mg PO DAILY [facility] Last Admin: 05/18/18 08:52 Dose: 10 mg Documented by: Cefazolin Sodium (Ancef) 2 gm IV Q8H [facility] Last Admin: 05/18/18 05:49 Dose: 2 gm Documented by: Dextrose (Dextrose 50%) 0 ml IV UD PRN PRN Reason: Hypoglycemia Diagnostic Test (Pha) (Accu-Chek) 1 each FS [facility] Last Admin: 05/18/18 08:55 Dose: 1 each Documented by: Enoxaparin Sodium (Lovenox) 30 mg SQ DAILY [facility] Last Admin: 05/18/18 08:51 Dose: 30 mg Documented by: Glucose (Insta-Glucose) 15 gm PO PRN PRN PRN Reason: Hypoglycemia Acetaminophen (Ofirmev) 650 mg in 65 mls @ 130 mls/hr IV Q6HP PRN PRN Reason: PAIN/FEVER > 101 Insulin Human Lispro (Humalog) 0 unit SQ [facility]; Protocol Last Admin: 05/18/18 08:56 Dose: Not Given Documented by: Lisinopril (Zestril) 40 mg PO [facility] Ondansetron HCl (Zofran) 4 mg IV Q6HP PRN PRN Reason: Nausea And Vomiting Sodium Chloride (Saline Flush) 10 ml IV Q8 [facility] Last Admin: 05/18/18 05:49 Dose: 10 ml Documented by: Medical - PN: A/P - Time Spent With Patient Total time spent is greater than 50% in coordination of care (as documented) at patient's floor/unit and/or counseling patient: 25 - 35 minutes (1) Cellulitis Status: Acute Assessment and plan: 72-year-old male with diabetes mellitus, presenting with swelling of the right foot, associated with less than 24 hours now of erythema. Found to have significant leukocytosis, tachycardia and fever consistent with sepsis from cellulitis. * Severe sepsis secondary to GPC bacteremia-on broad antibiotic coverage. ID consulted. Likely source right foot cellulitis. White count down from 32,000-> 24,000-> 26.4. Continue antibiotic coverage * Strep pneumo bacteremia-status cultures negative. Continue antibiotic coverage * Septic arthritis left knee status post joint aspiration/I&D washout by orthopedics. Await cultures. Cell count 64,000. Continue antibiotic coverage per ID * Cellulitis of the right foot-continue management as above * Acute renal failure secondary to sepsis and end organ dysfunction-creatinine improved from 2-1.5 * Diabetes mellitus. SSI/CCD * Hypertension -restart * CODE STATUS: Full code * Prophylaxis: Lovenox Plan * cefazolin 2 g every 8 * PICC line in 48 hours * surveillance cultures * Restart antihypertensives * Monitor renal function Current Visit: Yes Medical - PN: Qual - Stroke Symptom Onset Unknown: No - VTE Deep Vein Thrombosis/Pulmonary Embolism Present on Admission: No
[2018-05-18 13:55] LABS: Estimated Average Glucose(eAG) 146 mg/dL; Hemoglobin A1C 6.7 % HGB (4.0-6.0)
[2018-05-18] MEDS: LISINOPRIL 20 MG TABLET PO SCH (21:07)
[2018-05-19 05:55] LABS: Mean Cell Volume 98.7 fL (80.0-100.0); Mean Corpuscular HGB Conc 33.1 g/dL (31.0-36.0); Platelet Count 536 K/mcL (140-440); RBC 3.16 M/mcL (4.50-5.90); Red Cell Distribution Width 13.2 % (11.5-14.5)
[2018-05-19] MEDS: 0.9 % SODIUM CHLORIDE 10 ML SYRINGE IV SCH ×3 (06:26→21:57)
[2018-05-19] MEDS: ceFAZolin 1 GM VIAL IV SCH (06:26)
[2018-05-19 06:48] LABS: ALT/SGPT 8 U/l (0-40); Albumin 2.3 gm/dL (3.2-5.2); Albumin/Globulin Ratio 0.7 (1.0-2.3); Alkaline Phosphatase 88 U/L (39-117); Bilirubin,Direct < 0.2 mg/dL (0.0-0.3); Blood Urea Nitrogen 35 mg/dl (8-23); Gamma Glutamyl Transpeptidase 15 U/L (8-61); Uric Acid 7.5 mg/dL (2.5-8.0)
[2018-05-19 06:51] LABS: Band Neutrophils % 3 % (0-10); Lymphocytes % 4 % (15-49); Monocytes % (Manual) 4 % (1-12); Myelocytes % 2 % (0-0); Platelet Estimate INCREASED (NORMAL); RBC Morphology NORMAL (NORMAL); Segmented Neutrophils % 87 % (38-78); Toxic Granulation 1+ (NONE SEEN)
--- NOTE | 2018-05-19 06:53 | History and Physical Report ---
DATE OF ADMISSION: 05/15/2018 CHIEF COMPLAINT: Left knee pain. HISTORY OF PRESENT ILLNESS: This patient is a 72-year-old male who initially presented to the Emergency Department complaining of right foot erythema. He was then admitted by Dr. Wu due to a white blood cell count of 32,000, lactate of 2, and temperature of 101 with indications of sepsis. I was consulted by Dr. Canela for left knee pain that the patient developed during his hospital stay without any known injury. He continued to have an elevated white blood cell count and is unable to ambulate on his knee with significant range of motion loss. PAST MEDICAL HISTORY: Significant for diabetes mellitus, hypertension, and chronic kidney disease. PAST SURGICAL HISTORY: No surgeries according to the patient. FAMILY HISTORY: His father does have history of diabetes mellitus. SOCIAL HISTORY: The patient lives alone and denies any tobacco use or alcohol use. MEDICATIONS: He does take Novolin R 20 to 40 mg twice daily. He has multiple hypertension medications as well, which include benazepril and amlodipine. ALLERGIES: He has no known drug allergies. PHYSICAL EXAMINATION: VITAL SIGNS: His temperature currently is 98.9 degrees Fahrenheit, pulse is 92, respirations 16, blood pressure 137/76, and pulse ox 94% on room air. GENERAL: The patient is alert and oriented x3. He is in no acute distress. He does appear to be resting comfortably. HEENT: Atraumatic. Pupils are equal, round, and reactive to light and accommodation. Conjunctivae are clear. Hearing is grossly intact. He does have poor dentition and ENT is otherwise insignificant. NECK: Supple without any meningismus. RESPIRATORY: Lungs are clear bilaterally without any wheezes, rhonchi, or rales. Respiratory effort is unlabored currently. CARDIOVASCULAR: Heart has regular rate and rhythm without murmur. He does have regular pulses distally. ABDOMEN: Soft, nontender, and nondistended. Bowel sounds are present in all 4 quadrants. There is no tenderness to palpation. MUSCULOSKELETAL: His right foot is edematous and otherwise no significant erythema or swelling. Normal range of motion, passive and actively, and there is no tenderness to palpation. Distal sensation, capillary refill, and pulses are normal. His left knee inspection reveals moderate swelling with a suprapatellar effusion. There is no erythema or other abnormalities to inspection. Passive and active flexion and extension of the knee is significantly limited due to pain. There is diffuse tenderness to palpation throughout the knee. Distal sensation, capillary refill, and pulses are normal. NEUROLOGIC: Cranial nerves II-XII are grossly intact. He has normal sensation and pulses distally. PSYCHIATRIC: The patient is alert and oriented x3. His mood and affect do appear to be normal. LABORATORY DATA: Today, his white blood cell count of 24.3, hemoglobin 10.2, hematocrit of 30.4, and platelet count is 466. He does have a slightly elevated creatinine of 1.4 with a BUN of 31. Glucose is slightly elevated at 131. ASSESSMENT: Septic joint involving left knee. PLAN: Today, DICTATION ENDS HERE. RSM:in Job ID: [id number] Doc ID: [id number] Abilio Cao PA-C
[2018-05-19] MEDS: amLODIPine 10 MG TABLET PO SCH (07:59)
[2018-05-19] MEDS: ENOXAPARIN 30 MG/0.3 ML SYRINGE SQ SCH (07:59)
[2018-05-19] MEDS: INSULIN LISPRO 1 UNIT/0.01 ML UNIT SQ SCH ×4 (07:59→22:31)
[2018-05-19] MEDS: PENICILLIN G POTASSIUM 4,000,000 UNIT in 0.9 % SODIUM CHLORIDE 50 ML IV SCH ×3 (13:07→21:55)
[2018-05-19] MEDS ORDERED: IOPAMIDOL 100 ML BOTTLE IV ONE (15:16)
--- NOTE | 2018-05-19 15:42 | Cat Scan Report ---
CLINICAL INFORMATION: Leukocytosis. Sepsis. TECHNIQUE: Axial images of the chest, abdomen, pelvis. 80 mL intravenous contrast material injected. Oral contrast material was administered. Sagittal and coronal reformatted images. MIP reformatted images of the chest. COMPARISON: Chest x-ray dated 05/15/2018 FINDINGS: Chest: Small left pleural fluid collections, left larger than right. Bibasilar lower lobe pulmonary parenchymal densities most consistent with atelectasis. Pneumonia is not excluded. Mid and upper lungs are negative. No significant bronchiectasis. Nonionic combing. No focal pulmonary parenchymal mass. There is a moderate pericardial effusion. This measures 13 mm in maximum thickness. Is dense coronary artery calcification. There is mild calcification of the thoracic aorta. No pathologic hilar or mediastinal lymphadenopathy. No axillary adenopathy or supraclavicular adenopathy. No thoracic compression fractures. No lytic lesions. No paraspinal soft tissue mass. No evidence for discitis. Sternum and ribs are negative. Abdomen and pelvis: Negative liver. No focal intrahepatic abnormality. No hepatic mass or abscess. Gallbladder is present. No calcified gallstones. Gallbladder wall thickening or pericholecystic fluid. Negative spleen. No splenomegaly. Normal enhancement of splenic and portal veins. Negative pancreas. No pancreatic mass. No peripancreatic abnormality. Negative adrenal glands There are bilateral renal cysts. There is a mildly complex right lower pole cyst which measures 15 mm maximally. This has septations and possible mural nodularity. Ultrasound recommended to exclude a solid mass. Largest renal cyst is in the right mid to upper pole. This measures 5 cm maximally. There is no hydronephrosis. There is no hydroureter. No renal calculi. No detectable colonic mass. No diverticulitis. The appendix is negative. Small bowel is negative. No mechanical small bowel obstruction. There is calcification of the abdominal aorta. No abdominal aortic aneurysm. There is a small amount of free intraperitoneal fluid. There is no intra-abdominal abscess. No pneumoperitoneum. No biliary or portal venous gas. No pneumatosis. No lumbar compression fractures. No evidence for discitis. Sacrum and pelvis are negative. No lytic lesions. Degenerative disease in both hips. No fracture. No avascular necrosis. There is mild generalized subcutaneous edema. No subcutaneous mass or focal fluid collection. IMPRESSION: 1. Pericardial effusion. 2. Very small pleural fluid collections. Bilateral lower lobe parenchymal density consistent with atelectasis 3. Severe coronary artery calcification 4. Small amount of free intraperitoneal fluid. No intra-abdominal abscess. 5. Bilateral renal cysts. Mildly complex right lower pole cyst. Ultrasound recommended. No hydronephrosis or hydroureter. Interpreted and Authenticated by: Ramon Nelson 05/19/18
--- NOTE | 2018-05-19 17:05 | Infectious Disease Consult ---
History of Present Illness Patient information: Note initiated : 05/19/18 at 5:04 pm Service Date, if different from initiated Date: [] Patient: Solitario Sandoval 72 y/o M admitted on 05/15/18 for weakness. Chief Complaint: [] Consult date: 05/19/18 Requesting Physician: Evelyne Hughes Reason for Consult: Strep pneumo bacteremia, sepsis Chief complaint: I had cellulitis History of present illness: 72 year old man with PMHx of: - DM2 - HTN Patient was doing well until last when he noticed that his right foot has started turning red, painful and swelling. He mentioned that a neighbor placed activated charcoal poultice, which did seem to help the swelling. Pt continued it until day of his admission on 05/15/18. He denied any fevers, chills, cough, n/v, diarrhea, bites or trauma. On day of admission, pt reports that his swelling had increased to the point that his muscle tendons were not visible. In the emergency department, his temp was 101 F, HR 110, RR 22. WBC was 32,000 with neutrophillic predominance, lactate 2.0. Pt underwent blood cultures, and was started on IV Vanc. His blood Cx turned +ve for GPC in clusters and chains next day and same day was found to be Strept pneumo (on Verigene). Pt was switched to IV Ceftriaxone 1 gm q24 by the hospitalist. IV Ceftriaxone was switched to IV Cefazolin yesterday after a phone conversation with me based on review of sensitivities. Pt also underwent drainage of left knee jt by Ortho on 05/18 for a swollen knee which showed ~ 60K WBCs. Pt's WBC has initially improved but trended again back to 29k today. At time of visit, pt reported feeling better than before. Still c/o some swelling and redness in right foot, and pain in left knee. Denied any n/v/diarrhea. Pt shared his belief in food as a medicine and reported that he got sick because he was not eating well. Review of Systems All systems PM: reviewed and no additional remarkable complaints except as stated Past History Past family history: not pertinent to current presentation Past social history: lives alone in [facility], denies any current smoking/alc/IV drug use Medications and Allergies Home Medications Medication Instructions Recorded Confirmed Type Benazepril HCl 40 mg PO DAILY@1700 05/16/18 05/17/18 History amLODIPine BESYLATE [Amlodipine 10 mg PO DAILY 05/16/18 05/16/18 History Besylate] Allergies Allergy/AdvReac Type Severity Reaction Status Date / Time No Known Drug Allergies Allergy Verified 05/15/18 19:05 Physical Examination Vital signs: Temp Pulse Resp BP Pulse Ox 36.4 C 69 16 124/76 93 05/19/18 15:47 05/19/18 15:47 05/19/18 15:47 05/19/18 15:47 05/19/18 15:47 General appearance: no acute distress Eyes pulmonary: nonicteric Effort: normal Auscultation: bilateral: diminished breath sounds Cardiovascular: regular rate and rhythm Gastrointestinal: normoactive bowel sounds Extremities: edema, other Musculoskeletal: no deformities Gait: other Results - Laboratory Findings CBC and BMP: 05/19/18 04:17 05/19/18 04:17 Abnormal lab findings: Abnormal Labs 05/15/18 05/15/18 05/15/18 19:41 19:41 19:41 WBC 32.2 H* RBC 3.68 L Hgb 11.9 L Hct 36.0 L Plt Count 495 H Gran % 94.8 H Lymph % (Auto) 1.1 L Gran # 30.5 H Lymph # (Auto) 0.4 L Hardeman # (Auto) 1.3 H Seg Neutrophils % 89 H Lymphocytes % 1 L Myelocytes % 1 H WBC Morphology Toxic Granulation Platelet Estimate Increased A ESR Carbon Dioxide BUN 32 H Creatinine 2.0 H Glucose 47 L Hemoglobin A1c Calcium Alkaline Phosphatase 148 H C-Reactive Protein Total Protein Albumin 3.0 L Globulin 3.9 H Albumin/Globulin Ratio 0.8 L Urine Protein Urine Occult Blood Amorphous Crystals Hyaline Casts Synovial Neutrophils 05/15/18 05/16/18 05/16/18 20:33 04:02 04:02 WBC 28.7 H RBC 2.99 L Hgb 9.9 L Hct 29.4 L Plt Count Gran % 92.7 H Lymph % (Auto) 3.5 L Gran # 26.6 H Lymph # (Auto) 1.0 L Hardeman # (Auto) 1.1 H Seg Neutrophils % Lymphocytes % Myelocytes % WBC Morphology Toxic Granulation Platelet Estimate ESR Carbon Dioxide 21 L BUN 30 H Creatinine 1.5 H Glucose 189 H Hemoglobin A1c Calcium 8.3 L Alkaline Phosphatase C-Reactive Protein Total Protein Albumin Globulin Albumin/Globulin Ratio Urine Protein 100 A Urine Occult Blood 0.03 A Amorphous Crystals Few A Hyaline Casts 10 H Synovial Neutrophils 05/17/18 05/17/18 05/18/18 04:30 04:30 04:15 WBC 24.3 H 26.3 H RBC 3.08 L 3.15 L Hgb 10.2 L 10.3 L Hct 30.4 L 30.8 L Plt Count 466 H 478 H Gran % Lymph % (Auto) Gran # Lymph # (Auto) Hardeman # (Auto) Seg Neutrophils % 88 H 96 H Lymphocytes % 10 L 2 L Myelocytes % 1 H WBC Morphology Toxic Granulation Platelet Estimate Increased A Increased A ESR Carbon Dioxide 21 L BUN 31 H Creatinine 1.4 H Glucose 131 H Hemoglobin A1c Calcium 8.5 L Alkaline Phosphatase C-Reactive Protein Total Protein 5.3 L Albumin 2.0 L Globulin Albumin/Globulin Ratio 0.6 L Urine Protein Urine Occult Blood Amorphous Crystals Hyaline Casts Synovial Neutrophils 05/18/18 05/18/18 05/18/18 04:15 04:15 04:15 WBC RBC Hgb Hct Plt Count Gran % Lymph % (Auto) Gran # Lymph # (Auto) Hardeman # (Auto) Seg Neutrophils % Lymphocytes % Myelocytes % WBC Morphology Toxic Granulation Platelet Estimate ESR 84 H Carbon Dioxide 21 L BUN 36 H Creatinine 1.5 H Glucose 323 H Hemoglobin A1c Calcium 8.1 L Alkaline Phosphatase C-Reactive Protein 20.0 H Total Protein 5.4 L Albumin 1.9 L Globulin Albumin/Globulin Ratio 0.5 L Urine Protein Urine Occult Blood Amorphous Crystals Hyaline Casts Synovial Neutrophils 05/18/18 05/18/18 05/19/18 12:07 12:37 04:17 WBC 29.3 H RBC 3.16 L Hgb 10.3 L Hct 31.2 L Plt Count 536 H Gran % Lymph % (Auto) Gran # Lymph # (Auto) Hardeman # (Auto) Seg Neutrophils % 87 H Lymphocytes % 4 L Myelocytes % 2 H WBC Morphology Abnorm A Toxic Granulation 1+ A Platelet Estimate Increased A ESR Carbon Dioxide BUN Creatinine Glucose Hemoglobin A1c 6.7 H Calcium Alkaline Phosphatase C-Reactive Protein Total Protein Albumin Globulin Albumin/Globulin Ratio Urine Protein Urine Occult Blood Amorphous Crystals Hyaline Casts Synovial Neutrophils 96 H 05/19/18 04:17 WBC RBC Hgb Hct Plt Count Gran % Lymph % (Auto) Gran # Lymph # (Auto) Hardeman # (Auto) Seg Neutrophils % Lymphocytes % Myelocytes % WBC Morphology Toxic Granulation Platelet Estimate ESR Carbon Dioxide 21 L BUN 35 H Creatinine 1.5 H Glucose 120 H Hemoglobin A1c Calcium 8.2 L Alkaline Phosphatase C-Reactive Protein Total Protein 5.5 L Albumin 2.3 L Globulin Albumin/Globulin Ratio 0.7 L Urine Protein Urine Occult Blood Amorphous Crystals Hyaline Casts Synovial Neutrophils Microbiology: Microbiology 05/17/18 12:39 Aspirate - Knee Gram Stain - Final 05/17/18 12:39 Aspirate - Knee Body Fluid Culture - Preliminary 05/17/18 04:25 Blood Blood Culture - Preliminary 05/17/18 04:30 Blood Blood Culture - Preliminary 05/17/18 12:16 Aspirate - Knee Gram Stain - Final 05/17/18 12:16 Aspirate - Knee Anaerobic Culture - Preliminary 05/15/18 20:55 Blood Blood Culture - Final Streptococcus pneumoniae 05/15/18 20:50 Blood Blood Culture - Preliminary Gram positive cocci Assessment and Plan - Narrative A/P Narrative: A: 1. Strept pneumo bacteremia with subseq seeding of left knee joint causing guevara ve septic arthritis - likely source is right foot cellulitis - repeat Cx neg since 05/16 - severe infection leading to sepsis, no shock: now resolved 2. Moderate pericardial effusion: seems suspicious for seeding due to Strept pneumo. - will need repeat TTE down the line to document resolution or drainage if clinical worsening 3. Rt foot cellulitis: almost resolved Recommendations: - Given penicillin sensitivity and the fact that penicillin is the most effective antibiotic for Strept pneumo; will switch from Cefazolin to IV Penicillin G 4 million units q4 hrs - If blood Cx sent today are negative by tomorrow afternoon, PICC line placement could be considered - will recommend repeat TTE and pericardiocentesis if clinically worsening (uptrending WBCs, fevers, SOB, signs of acute heart failure) - anticipate at least 4 weeks of IV therapy will follow Bam Culp MD Infectious diseases
[2018-05-19] MEDS: LISINOPRIL 20 MG TABLET PO SCH (21:57)
--- NOTE | 2018-05-19 22:25 | Internal Med Progress Note ---
Medical - PN: Subj Patient information: Note initiated : 05/19/18 at 10:25 pm Service Date, if different from initiated Date: [] Patient: Solitario Sandoval a 72 y/o M admitted on 05/15/18 for weakness. Chief Complaint: [] Interval history: 05/15 Mr. Sandoval is a 72 year old M with a history of diabetes, hypertension, chronic kidney disease presents the ED for evaluation of swollen red right foot. Patient was in his usual state of health when on Saturday a.m. his right foot was swollen. It is not erythematous. It was not painful. A neighbor placed 8 activated charcoal poultice, which did seem to help the swelling. That continued until today, one somewhere overnight his foot became erythematous. It was noted this morning when his friend came to change the poultice. He noticed that there was pain with flexion his toes. The swelling was actually improved from when it was at its worst. Patient denies any fevers or chills. He's had mild encroachment of the erythema up the ankle this evening. Because of the erythema Lamar presents the ED for evaluation. In the emergency department, his white counts found to be 32,000. Lactate is 2.0. His temperature is 101, his pulse initially was 105-110 respiratory rate 22-23. He's of improved after fluids. He was cultured and received vancomycin. He's been admitted for further treatment of cellulitis and sepsis. Otherwise the patient denies headache, vision changes, sore throat. Said a mild cough for 1 day. No chest pain or tightness, no abdominal pain, nausea or vomiting, diarrhea. No history of stroke, no history of cardiac disease. No history of asthma emphysema, no history of hypothyroidism. He does have a history of kidney disease, follows with Dr. Koch. Dr. Arthur is his primary care physician. 05/16 Starting to feel a little better. Still with some edema on his feet. Blood cultures are now positive for gram-positive cocci in pairs and chains in both sets. Home medications clarified. 05/17-patient complains of excruciating pain left knee. On exam left knee is swollen and tender. Case discussed with Dr. Zarate orthopedics for effusion tap. Case discussed with infectious disease specialist in light of strep pneumo and blood cultures. Pending surveillance cultures. Echocardiogram performed await results. Antibiotics changed to cefazolin as per ID recommendations. patient will be kept n.p.o. as per orthopedic recommendations. 05/18-purulent joint aspirate left knee, cell count 63,900. Likely hematogenous septic arthritis. On antibiotic coverage. Status post joint washout/I&D. Surveillance cultures negative. White count persistent elevation at 26.3. Check baseline CRP and trend. ID consulted. PICC line in 24-48 hours if surveillance cultures negative 05/19-patient doing well. No overnight events. Cultures negative so far. ID recommends changing antibiotics to penicillin G. CT abdomen chest pelvis to rule out infectious etiology in light of worsening leukocytosis at 30,000 today. Otherwise clinically no change since previous day. Arthralgia myalgia improved. No fever chills. - Constitutional Vitals: Vital Signs Temp Pulse Resp BP Pulse Ox 98.3 F 86 16 139/72 95 05/19/18 20:00 05/19/18 20:00 05/19/18 20:00 05/19/18 20:00 05/19/18 20:00 Period Temp Pulse Resp BP Sys/Landis Pulse Ox Last 24 Hr 97.3 F-98.3 F 66-86 14-16 124-139/72-77 91-95 Intake and Output 05/19/18 05/19/18 05/20/18 13:59 21:59 05:59 Intake Total 58 558 Output Total 425 275 Balance -367 283 Intake & Output: Intake & Output 05/19/18 05/19/18 05/20/18 13:59 21:59 05:59 Intake Total 58 558 Output Total 425 275 Balance -367 283 Intake: IV 58 58 Pfizerpen 4,000,000 Unit In 58 58 Sodium Chloride 0.9% 50 ml @ 100 mls/hr IV Q4H [facility] Rx#: [id number] Oral 500 Output: Void Amount 425 275 Other: Stool Size Moderate Stool Color Brown Stool Consistency Liquid Watery Loose # Voids 1 1 # Bowel Movements 1 General appearance: no acute distress Exam: Alert oriented No labored breathing Right knee surgical drain removed Medical - PN: Obj Da - Labs CBC & Chem 7: 05/20/18 04:36 05/20/18 04:36 Labs: Abnormal Lab Results 05/19/18 05/19/18 05/18/18 04:17 04:17 12:37 WBC 29.3 H RBC 3.16 L Hgb 10.3 L Hct 31.2 L Plt Count 536 H Seg Neutrophils % 87 H Lymphocytes % 4 L Myelocytes % 2 H WBC Morphology Abnorm A Toxic Granulation 1+ A Platelet Estimate Increased A ESR Carbon Dioxide 21 L BUN 35 H Creatinine 1.5 H Glucose 120 H Hemoglobin A1c Calcium 8.2 L C-Reactive Protein Total Protein 5.5 L Albumin 2.3 L Albumin/Globulin Ratio 0.7 L Synovial Neutrophils 96 H 05/18/18 05/18/18 05/18/18 12:07 04:15 04:15 WBC RBC Hgb Hct Plt Count Seg Neutrophils % Lymphocytes % Myelocytes % WBC Morphology Toxic Granulation Platelet Estimate ESR 84 H Carbon Dioxide BUN Creatinine Glucose Hemoglobin A1c 6.7 H Calcium C-Reactive Protein 20.0 H Total Protein Albumin Albumin/Globulin Ratio Synovial Neutrophils 05/18/18 05/18/18 05/17/18 04:15 04:15 04:30 WBC 26.3 H RBC 3.15 L Hgb 10.3 L Hct 30.8 L Plt Count 478 H Seg Neutrophils % 96 H Lymphocytes % 2 L Myelocytes % 1 H WBC Morphology Toxic Granulation Platelet Estimate Increased A ESR Carbon Dioxide 21 L 21 L BUN 36 H 31 H Creatinine 1.5 H 1.4 H Glucose 323 H 131 H Hemoglobin A1c Calcium 8.1 L 8.5 L C-Reactive Protein Total Protein 5.4 L 5.3 L Albumin 1.9 L 2.0 L Albumin/Globulin Ratio 0.5 L 0.6 L Synovial Neutrophils 05/17/18 04:30 WBC 24.3 H RBC 3.08 L Hgb 10.2 L Hct 30.4 L Plt Count 466 H Seg Neutrophils % 88 H Lymphocytes % 10 L Myelocytes % WBC Morphology Toxic Granulation Platelet Estimate Increased A ESR Carbon Dioxide BUN Creatinine Glucose Hemoglobin A1c Calcium C-Reactive Protein Total Protein Albumin Albumin/Globulin Ratio Synovial Neutrophils Meds: Medications Acetaminophen (Tylenol) 650 mg PO Q6HP PRN PRN Reason: PAIN/FEVER > 101 Hydrocodone Bitart/Acetaminophen ([place] 5/325mg) 1 tab PO Q4HP PRN PRN Reason: PAIN LEVEL 3-6 Amlodipine Besylate (Norvasc) 10 mg PO DAILY [facility] Last Admin: 05/19/18 07:59 Dose: 10 mg Documented by: Dextrose (Dextrose 50%) 0 ml IV UD PRN PRN Reason: Hypoglycemia Diagnostic Test (Pha) (Accu-Chek) 1 each FS ACHS [facility] Last Admin: 05/19/18 22:02 Dose: 1 each Documented by: Enoxaparin Sodium (Lovenox) 30 mg SQ DAILY [facility] Last Admin: 05/19/18 07:59 Dose: 30 mg Documented by: Glucose (Insta-Glucose) 15 gm PO PRN PRN PRN Reason: Hypoglycemia Acetaminophen (Ofirmev) 650 mg in 65 mls @ 130 mls/hr IV Q6HP PRN PRN Reason: PAIN/FEVER > 101 Penicillin G Potassium 4,000, (000 unit/ Sodium Chloride) 58 mls @ 100 mls/hr IV Q4H [facility] Last Admin: 05/19/18 21:55 Dose: 100 mls/hr Documented by: Insulin Human Lispro (Humalog) 0 unit SQ ACHS [facility]; Protocol Last Admin: 05/19/18 18:08 Dose: 4 units Documented by: Lisinopril (Zestril) 40 mg PO HS [facility] Last Admin: 05/19/18 21:57 Dose: 40 mg Documented by: Ondansetron HCl (Zofran) 4 mg IV Q6HP PRN PRN Reason: Nausea And Vomiting Sodium Chloride (Saline Flush) 10 ml IV Q8 [facility] Last Admin: 05/19/18 21:57 Dose: 10 ml Documented by: Medical - PN: A/P - Time Spent With Patient Total time spent is greater than 50% in coordination of care (as documented) at patient's floor/unit and/or counseling patient: 25 - 35 minutes (1) Cellulitis Status: Acute Assessment and plan: 72-year-old male with diabetes mellitus, presenting with swelling of the right foot, associated with less than 24 hours now of erythema. Found to have si gnificant leukocytosis, tachycardia and fever consistent with sepsis from cellulitis. * Severe sepsis secondary to GPC bacteremia-on broad antibiotic coverage. ID consulted. Likely source right foot cellulitis. White count 32,000-> 24,000- > 29.3. Continue antibiotic coverage * Strep pneumo bacteremia-surveillance cultures negative. on penicillin G per ID * Septic arthritis left knee status post joint aspiration/I&D washout by orthopedics. Drain removed by orthopedics. Cultures negative so far. On penicillin G per ID * Cellulitis of the right foot-continue management as above * Acute renal failure secondary to sepsis and end organ dysfunction-creatinine gradually improving * Diabetes mellitus. SSI/CCD * Hypertension -continue antihypertensives * CODE STATUS: Full code * Prophylaxis: Lovenox Plan * CT abdomen chest pelvis * Antibiotics changed to penicillin G by ID * PICC line in 48 hours if surveillance cultures negative * Additional surveillance cultures * Pre-existing medication management as above Current Visit: Yes Medical - PN: Qual - Stroke Symptom Onset Unknown: No - VTE Deep Vein Thrombosis/Pulmonary Embolism Present on Admission: No
[2018-05-20] MEDS: PENICILLIN G POTASSIUM 4,000,000 UNIT in 0.9 % SODIUM CHLORIDE 50 ML IV SCH ×6 (00:33→20:37)
[2018-05-20] MEDS: 0.9 % SODIUM CHLORIDE 10 ML SYRINGE IV SCH ×3 (05:28→20:46)
[2018-05-20 06:22] LABS: Mean Cell Volume 98.1 fL (80.0-100.0); Mean Corpuscular HGB Conc 32.9 g/dL (31.0-36.0); Platelet Count 612 K/mcL (140-440); RBC 3.34 M/mcL (4.50-5.90); Red Cell Distribution Width 13.2 % (11.5-14.5)
[2018-05-20 07:07] LABS: ALT/SGPT 9 U/l (0-40); Albumin 2.3 gm/dL (3.2-5.2); Albumin/Globulin Ratio 0.7 (1.0-2.3); Alkaline Phosphatase 87 U/L (39-117); Bilirubin,Direct < 0.2 mg/dL (0.0-0.3); Blood Urea Nitrogen 24 mg/dl (8-23); Gamma Glutamyl Transpeptidase 24 U/L (8-61); Uric Acid 6.3 mg/dL (2.5-8.0)
[2018-05-20] MEDS: INSULIN LISPRO 1 UNIT/0.01 ML UNIT SQ SCH ×4 (07:59→20:45)
[2018-05-20 08:27] LABS: Band Neutrophils % 3 % (0-10); Lymphocytes % 17 % (15-49); Metamyelocytes % 2 % (0-0); Monocytes % (Manual) 11 % (1-12); Myelocytes % 1 % (0-0); Platelet Estimate INCREASED (NORMAL); RBC Morphology NORMAL (NORMAL); Segmented Neutrophils % 66 % (38-78); Toxic Granulation 1+ (NONE SEEN)
[2018-05-20] MEDS: ENOXAPARIN 40 MG/0.4 ML SYRINGE SQ SCH (09:31)
[2018-05-20] MEDS: amLODIPine 10 MG TABLET PO SCH (09:36)
--- NOTE | 2018-05-20 10:44 | Internal Med Progress Note ---
Medical - PN: Subj Patient information: Note initiated : 05/20/18 at 10:41 am Service Date, if different from initiated Date: [] Patient: Solitario Sandoval a 72 y/o M admitted on 05/15/18 for weakness. Chief Complaint: [] Interval history: 05/15 Mr. Sandoval is a 72 year old M with a history of diabetes, hypertension, chronic kidney disease presents the ED for evaluation of swollen red right foot. Patient was in his usual state of health when on Saturday a.m. his right foot was swollen. It is not erythematous. It was not painful. A neighbor placed 8 activated charcoal poultice, which did seem to help the swelling. That continued until today, one somewhere overnight his foot became erythematous. It was noted this morning when his friend came to change the poultice. He noticed that there was pain with flexion his toes. The swelling was actually improved from when it was at its worst. Patient denies any fevers or chills. He's had mild encroachment of the erythema up the ankle this evening. Because of the erythema Lamar presents the ED for evaluation. In the emergency department, his white counts found to be 32,000. Lactate is 2.0. His temperature is 101, his pulse initially was 105-110 respiratory rate 22-23. He's of improved after fluids. He was cultured and received vancomycin. He's been admitted for further treatment of cellulitis and sepsis. Otherwise the patient denies headache, vision changes, sore throat. Said a mild cough for 1 day. No chest pain or tightness, no abdominal pain, nausea or vomiting, diarrhea. No history of stroke, no history of cardiac disease. No history of asthma emphysema, no history of hypothyroidism. He does have a history of kidney disease, follows with Dr. Koch. Dr. Arthur is his primary care physician. 05/16 Starting to feel a little better. Still with some edema on his feet. Blood cultures are now positive for gram-positive cocci in pairs and chains in both sets. Home medications clarified. 05/17-patient complains of excruciating pain left knee. On exam left knee is swollen and tender. Case discussed with Dr. Zarate orthopedics for effusion tap. Case discussed with infectious disease specialist in light of strep pneumo and blood cultures. Pending surveillance cultures. Echocardiogram performed await results. Antibiotics changed to cefazolin as per ID recommendations. patient will be kept n.p.o. as per orthopedic recommendations. 05/18-purulent joint aspirate left knee, cell count 63,900. Likely hematogenous septic arthritis. On antibiotic coverage. Status post joint washout/I&D. Surveillance cultures negative. White count persistent elevation at 26.3. Check baseline CRP and trend. ID consulted. PICC line in 24-48 hours if surveillance cultures negative 05/19-patient doing well. No overnight events. Cultures negative so far. ID recommends changing antibiotics to penicillin G. CT abdomen chest pelvis to rule out infectious etiology in light of worsening leukocytosis at 30,000 today. Otherwise clinically no change since previous day. Arthralgia myalgia improved. No fever chills. 05/20-patient doing well. No overnight events. Continuing penicillin G per ID. Possible discharge in 24 hours if surveillance cultures negative. Place PICC line. Will need outpatient echocardiogram. White count 17.5. Creatinine 1.2. - Constitutional Vitals: Vital Signs Temp Pulse Resp BP Pulse Ox 98.5 F 76 16 144/72 93 05/20/18 08:00 05/20/18 08:00 05/20/18 08:00 05/20/18 08:00 05/20/18 08:00 Period Temp Pulse Resp BP Sys/Landis Pulse Ox Last 24 Hr 97.3 F-98.5 F 69-86 16-16 124-145/72-76 92-97 Intake and Output 05/19/18 05/20/18 05/20/18 21:59 05:59 13:59 Intake Total 558 916 178 Output Total 275 775 400 Balance 283 141 -222 Weight 145 lb 8 oz Intake & Output: Intake & Output 05/19/18 05/20/18 05/20/18 21:59 05:59 13:59 Intake Total 558 916 178 Output Total 275 775 400 Balance 283 141 -222 Weight 145 lb 8 oz Intake: IV 58 116 58 Pfizerpen 4,000,000 Unit In 58 116 58 Sodium Chloride 0.9% 50 ml @ 100 mls/hr IV Q4H [facility] Rx#: [id number] Oral 500 800 120 Output: Void Amount 275 775 400 Other: Meal Breakfast Percent of Meal Consumed 50% Feeding Ability Independent Urine Appearance Clear Urine Color Bright Yellow Urine Odor Normal Stool Size Moderate Small Moderate Stool Color Brown Brown Brown Stool Consistency Liquid Loose Liquid Watery Loose # Voids 1 1 1 # Bowel Movements 1 1 1 General appearance: cooperative, no acute distress Exam: Alert oriented No labored breathing No anxiety No lymphedema Left knee pain and swelling improved Medical - PN: Obj Da - Labs CBC & Chem 7: 05/20/18 04:36 05/20/18 04:36 Labs: Abnormal Lab Results 05/20/18 05/20/18 05/19/18 04:36 04:36 04:17 WBC 17.5 H RBC 3.34 L Hgb 10.8 L Hct 32.8 L Plt Count 612 H Seg Neutrophils % Lymphocytes % Metamyelocytes % 2 H Myelocytes % 1 H WBC Morphology Abnorm A Toxic Granulation 1+ A Platelet Estimate Increased A ESR Carbon Dioxide 21 L BUN 24 H 35 H Creatinine 1.5 H Glucose 162 H 120 H Hemoglobin A1c Calcium 8.4 L 8.2 L Lactate Dehydrogenase 252 H C-Reactive Protein Total Protein 5.6 L 5.5 L Albumin 2.3 L 2.3 L Albumin/Globulin Ratio 0.7 L 0.7 L Triglycerides 219 H Synovial Neutrophils 05/19/18 05/18/18 05/18/18 04:17 12:37 12:07 WBC 29.3 H RBC 3.16 L Hgb 10.3 L Hct 31.2 L Plt Count 536 H Seg Neutrophils % 87 H Lymphocytes % 4 L Metamyelocytes % Myelocytes % 2 H WBC Morphology Abnorm A Toxic Granulation 1+ A Platelet Estimate Increased A ESR Carbon Dioxide BUN Creatinine Glucose Hemoglobin A1c 6.7 H Calcium Lactate Dehydrogenase C-Reactive Protein Total Protein Albumin Albumin/Globulin Ratio Triglycerides Synovial Neutrophils 96 H 05/18/18 05/18/18 05/18/18 04:15 04:15 04:15 WBC RBC Hgb Hct Plt Count Seg Neutrophils % Lymphocytes % Metamyelocytes % Myelocytes % WBC Morphology Toxic Granulation Platelet Estimate ESR 84 H Carbon Dioxide 21 L BUN 36 H Creatinine 1.5 H Glucose 323 H Hemoglobin A1c Calcium 8.1 L Lactate Dehydrogenase C-Reactive Protein 20.0 H Total Protein 5.4 L Albumin 1.9 L Albumin/Globulin Ratio 0.5 L Triglycerides Synovial Neutrophils 05/18/18 04:15 WBC 26.3 H RBC 3.15 L Hgb 10.3 L Hct 30.8 L Plt Count 478 H Seg Neutrophils % 96 H Lymphocytes % 2 L Metamyelocytes % Myelocytes % 1 H WBC Morphology Toxic Granulation Platelet Estimate Increased A ESR Carbon Dioxide BUN Creatinine Glucose Hemoglobin A1c Calcium Lactate Dehydrogenase C-Reactive Protein Total Protein Albumin Albumin/Globulin Ratio Triglycerides Synovial Neutrophils Meds: Medications Acetaminophen (Tylenol) 650 mg PO Q6HP PRN PRN Reason: PAIN/FEVER > 101 Hydrocodone Bitart/Acetaminophen ([place] 5/325mg) 1 tab PO Q4HP PRN PRN Reason: PAIN LEVEL 3-6 Amlodipine Besylate (Norvasc) 10 mg PO DAILY [facility] Last Admin: 05/20/18 09:36 Dose: 10 mg Documented by: Dextrose (Dextrose 50%) 0 ml IV UD PRN PRN Reason: Hypoglycemia Diagnostic Test (Pha) (Accu-Chek) 1 each FS [facility] Last Admin: 05/20/18 08:00 Dose: 1 each Documented by: Enoxaparin Sodium (Lovenox) 40 mg SQ DAILY [facility] Last Admin: 05/20/18 09:31 Dose: 40 mg Documented by: Glucose (Insta-Glucose) 15 gm PO PRN PRN PRN Reason: Hypoglycemia Acetaminophen (Ofirmev) 650 mg in 65 mls @ 130 mls/hr IV Q6HP PRN PRN Reason: PAIN/FEVER > 101 Penicillin G Potassium 4,000, (000 unit/ Sodium Chloride) 58 mls @ 100 mls/hr IV Q4H [facility] Last Admin: 05/20/18 10:37 Dose: 100 mls/hr Documented by: Insulin Human Lispro (Humalog) 0 unit SQ [facility]; Protocol Last Admin: 05/20/18 07:59 Dose: 2 units Documented by: Lisinopril (Zestril) 40 mg PO HS [facility] Last Admin: 05/19/18 21:57 Dose: 40 mg Documented by: Ondansetron HCl (Zofran) 4 mg IV Q6HP PRN PRN Reason: Nausea And Vomiting Sodium Chloride (Saline Flush) 10 ml IV Q8 [facility] Last Admin: 05/20/18 05:28 Dose: 10 ml Documented by: Medical - PN: A/P - Time Spent With Patient Total time spent is greater than 50% in coordination of care (as documented) at patient's floor/unit and/or counseling patient: 15 - 24 minutes (1) Cellulitis Status: Acute Assessment and plan: 72-year-old male with diabetes mellitus, presenting with swelling of the right foot, associated with less than 24 hours now of erythema. Found to have significant leukocytosis, tachycardia and fever consistent with sepsis from cellulitis. * Severe sepsis secondary to GPC bacteremia-on broad antibiotic coverage. ID consulted. Likely source right foot cellulitis. White count 32,000-> 24,000- > 29.3->17.5 . Continue antibiotics per ID * Strep pneumo bacteremia-surveillance cultures negative so far. On antibiotics per ID * Pericardial effusion-will need outpatient echocardiogram for interval change. Continue antibiotic coverage * Septic arthritis left knee status post joint aspiration/I&D washout by orthopedics. Drain removed by orthopedics. * Cellulitis of the right foot-continue management as above * Acute renal failure secondary to sepsis and end organ dysfunction-creatinine gradually improving * Diabetes mellitus. SSI/CCD * Hypertension -continue antihypertensives * CODE STATUS: Full code * Prophylaxis: Lovenox Plan * Antibiotics per ID * PICC line placement * Primarily condition management on home meds * Possible discharge in 24-48 hours Current Visit: Yes Medical - PN: Qual - Stroke Symptom Onset Unknown: No - VTE Deep Vein Thrombosis/Pulmonary Embolism Present on Admission: No
--- NOTE | 2018-05-20 10:51 | Infectious Disease Prog Note ---
Subjective Patient information: Note initiated : 05/20/18 at 10:34 am Service Date, if different from initiated Date: [] Patient: Solitario Sandoval 72 y/o M admitted on 05/15/18 for weakness. Chief Complaint: [] Principal diagnosis: Left septic knee Interval history: Pt doing fine. Reports no fever, chills, n/v, diarrhea. Endorses left knee pain on walking. Tolerating Pen G injection without any problems. Objective Objective Narrative: ao x 3, in nad no thrush chest cta except for decreased breath sounds at bases s1 s2 normal bs ++ nttd right foot has about 6-7 cm x 2-3 cm area of redness and swelling on lateral aspect, non tender, no open wounds Left knee: slightly swollen and warm compared to right knee, no drainage - Vital Signs Vital signs: Vital Signs Temp Pulse Resp BP BP Pulse Ox 05/20/18 08:00 36.9 C 76 16 144/72 93 05/20/18 03:10 36.8 C 77 16 130/73 93 05/19/18 23:54 36.8 C 80 16 145/76 97 05/19/18 20:00 36.8 C 86 16 139/72 95 05/19/18 15:47 36.4 C 69 16 124/76 93 05/19/18 12:00 36.3 C 75 16 128/75 92 Intake and Output 05/19/18 05/20/18 05/20/18 21:59 05:59 13:59 Intake Total 558 916 120 Output Total 275 775 400 Balance 283 141 -280 Intake: IV 58 116 Pfizerpen 4,000,000 Unit In 58 116 Sodium Chloride 0.9% 50 ml @ 100 mls/hr IV Q4H [facility] Rx#: [id number] Oral 500 800 120 Output: Void Amount 275 775 400 Other: Meal Breakfast Percent of Meal Consumed 50% Feeding Ability Independent Urine Appearance Clear Urine Color Bright Yellow Urine Odor Normal Stool Size Moderate Small Moderate Stool Color Brown Brown Brown Stool Consistency Liquid Loose Liquid Watery Loose # Voids 1 1 1 # Bowel Movements 1 1 1 Weight 65.998 kg Intake & Output: Intake & Output 05/19/18 05/20/18 05/20/18 21:59 05:59 13:59 Intake Total 558 916 120 Output Total 275 775 400 Balance 283 141 -280 Weight 65.998 kg Intake: IV 58 116 Pfizerpen 4,000,000 Unit In 58 116 Sodium Chloride 0.9% 50 ml @ 100 mls/hr IV Q4H [facility] Rx#: [id number] Oral 500 800 120 Output: Void Amount 275 775 400 Other: Meal Breakfast Percent of Meal Consumed 50% Feeding Ability Independent Urine Appearance Clear Urine Color Bright Yellow Urine Odor Normal Stool Size Moderate Small Moderate Stool Color Brown Brown Brown Stool Consistency Liquid Loose Liquid Watery Loose # Voids 1 1 1 # Bowel Movements 1 1 1 - Lab 05/20/18 04:36 05/20/18 04:36 Most recent lab results Calcium 8.4 mg/dl (8.6-10.4) L 05/20/18 04:36 Phosphorus 3.4 mg/dL (2.7-4.5) 05/20/18 04:36 Magnesium 2.1 mg/dL (1.6-2.5) 05/20/18 04:36 Microbiology 05/17/18 04:25 Blood Blood Culture - Preliminary 05/17/18 04:30 Blood Blood Culture - Preliminary 05/17/18 12:39 Aspirate - Knee Gram Stain - Final 05/17/18 12:39 Aspirate - Knee Body Fluid Culture - Preliminary 05/17/18 12:16 Aspirate - Knee Gram Stain - Final 05/17/18 12:16 Aspirate - Knee Anaerobic Culture - Preliminary 05/15/18 20:55 Blood Blood Culture - Final Streptococcus pneumoniae 05/15/18 20:50 Blood Blood Culture - Preliminary Gram positive cocci Medications Active Medications: Acetaminophen (Tylenol) 650 mg PO Q6HP PRN PRN Reason: PAIN/FEVER > 101 Hydrocodone Bitart/Acetaminophen ([place] 5/325mg) 1 tab PO Q4HP PRN PRN Reason: PAIN LEVEL 3-6 Amlodipine Besylate (Norvasc) 10 mg PO DAILY [facility] Last Admin: 05/20/18 09:36 Dose: 10 mg Documented by: SHIRLEY Cosigned by: MARLIN Admin: 05/19/18 07:59 Dose: 10 mg Documented by: [email or web address] Admin: 05/18/18 08:52 Dose: 10 mg Documented by: [id number] Admin: 05/17/18 08:14 Dose: 10 mg Documented by: [email or web address] Dextrose (Dextrose 50%) 0 ml IV UD PRN PRN Reason: Hypoglycemia Diagnostic Test (Pha) (Accu-Chek) 1 each FS ACHS [facility] Last Admin: 05/20/18 08:00 Dose: 1 each Documented by: Admin: 05/19/18 22:02 Dose: 1 each Documented by: Admin: 05/19/18 18:08 Dose: 1 each Documented by: [email or web address] Admin: 05/19/18 11:09 Dose: 1 each Documented by: [email or web address] Admin: 05/19/18 07:17 Dose: 1 each Documented by: [email or web address] Admin: 05/18/18 21:18 Dose: 1 each Documented by: Admin: 05/18/18 16:58 Dose: 1 each Documented by: Admin: 05/18/18 13:53 Dose: 1 each Documented by: Admin: 05/18/18 11:23 Dose: 1 each Documented by: Admin: 05/18/18 08:55 Dose: 1 each Documented by: Admin: 05/17/18 21:31 Dose: 1 each Documented by: Admin: 05/17/18 17:33 Dose: 1 each Documented by: Admin: 05/17/18 13:19 Dose: 1 each Documented by: Admin: 05/17/18 07:42 Dose: 1 each Documented by: Admin: 05/16/18 20:19 Dose: 1 each Documented by: Admin: 05/16/18 17:00 Dose: 1 each Documented by: Admin: 05/16/18 12:22 Dose: 1 each Documented by: Admin: 05/16/18 07:33 Dose: 1 each Documented by: ARIAN Enoxaparin Sodium (Lovenox) 40 mg SQ DAILY [facility] Last Admin: 05/20/18 09:31 Dose: 40 mg Documented by: SHIRLEY Cosigned by: MARLIN Glucose (Insta-Glucose) 15 gm PO PRN PRN PRN Reason: Hypoglycemia Acetaminophen (Ofirmev) 650 mg in 65 mls @ 130 mls/hr IV Q6HP PRN PRN Reason: PAIN/FEVER > 101 Penicillin G Potassium 4,000, (000 unit/ Sodium Chloride) 58 mls @ 100 mls/hr IV Q4H [facility] Last Admin: 05/20/18 05:28 Dose: 100 mls/hr Documented by: Infusion: 05/20/18 01:08 Dose: 100 mls/hr Documented by: Admin: 05/20/18 00:33 Dose: 100 mls/hr Documented by: [email or web address] Infusion: 05/19/18 22:30 Dose: 100 mls/hr Documented by: [email or web address] Admin: 05/19/18 21:55 Dose: 100 mls/hr Documented by: [email or web address] Infusion: 05/19/18 18:44 Dose: 100 mls/hr Documented by: [email or web address] Admin: 05/19/18 18:09 Dose: 100 mls/hr Documented by: [email or web address] Infusion: 05/19/18 13:42 Dose: 100 mls/hr Documented by: [email or web address] Admin: 05/19/18 13:07 Dose: 100 mls/hr Documented by: [email or web address] Insulin Human Lispro (Humalog) 0 unit SQ ACHS [facility]; Protocol Last Admin: 05/20/18 07:59 Dose: 2 units Documented by: Admin: 05/19/18 22:31 Dose: 6 units Documented by: Admin: 05/19/18 18:08 Dose: 4 units Documented by: [email or web address] Admin: 05/19/18 12:15 Dose: 6 units Documented by: [email or web address] Admin: 05/19/18 07:59 Dose: 2 units Documented by: [email or web address] Admin: 05/18/18 21:37 Dose: 6 units Documented by: [email or web address] Admin: 05/18/18 16:58 Dose: 8 units Documented by: [email or web address] Admin: 05/18/18 13:54 Dose: 8 units Documented by: [email or web address] Admin: 05/18/18 11:38 Dose: 14 units Documented by: [email or web address] Admin: 05/18/18 08:56 Dose: Not Given Documented by: [email or web address] Non-Admin Reason: No Coverage Needed Admin: 05/17/18 21:31 Dose: 12 units Documented by: Admin: 05/17/18 17:34 Dose: 8 units Documented by: [email or web address] Admin: 05/17/18 15:32 Dose: Not Given Documented by: [email or web address] Non-Admin Reason: NPO and going to surgery Admin: 05/17/18 08:15 Dose: 2 units Documented by: Admin: 05/16/18 20:20 Dose: 4 units Documented by: Admin: 05/16/18 16:59 Dose: 6 units Documented by: Admin: 05/16/18 12:30 Dose: 12 units Documented by: Admin: 05/16/18 07:41 Dose: 6 units Documented by: ARIAN Lisinopril (Zestril) 40 mg PO HS [facility] Last Admin: 05/19/18 21:57 Dose: 40 mg Documented by: Admin: 05/18/18 21:07 Dose: 40 mg Documented by: [email or web address] Comments: would not scan Ondansetron HCl (Zofran) 4 mg IV Q6HP PRN PRN Reason: Nausea And Vomiting Sodium Chloride (Saline Flush) 10 ml IV Q8 [facility] Last Admin: 05/20/18 05:28 Dose: 10 ml Documented by: Admin: 05/19/18 21:57 Dose: 10 ml Documented by: Admin: 05/19/18 13:09 Dose: 10 ml Documented by: [email or web address] Admin: 05/19/18 06:26 Dose: 10 ml Documented by: Admin: 05/18/18 21:07 Dose: 10 ml Documented by: Admin: 05/18/18 13:55 Dose: 10 ml Documented by: [email or web address] Admin: 05/18/18 05:49 Dose: 10 ml Documented by: Admin: 05/17/18 21:30 Dose: 10 ml Documented by: Admin: 05/17/18 16:14 Dose: 10 ml Documented by: [email or web address] Admin: 05/17/18 07:43 Dose: 10 ml Documented by: Admin: 05/16/18 20:20 Dose: 10 ml Documented by: Admin: 05/16/18 14:33 Dose: 10 ml Documented by: Admin: 05/16/18 05:01 Dose: Not Given Documented by: DELLA Non-Admin Reason: Continuous IV Assessment and Plan - Narrative A/P Narrative: A: 1. Strept pneumo bacteremia with subseq seeding of left knee joint causing havasupai septic arthritis - likely source is right foot cellulitis - repeat Cx neg since 05/16 - s/p surgical I&D - severe infection leading to sepsis, no shock: now resolved 2. Moderate pericardial effusion 3. Rt foot cellulitis: almost resolved Recommendations: - Continue IV Penicillin G 4 million units q4 hrs - If blood Cx sent 05/19 are negative for 48 hrs, PICC line placement could be considered tomorrow - If clinically worsening (uptrending WBCs, fevers, SOB, signs of acute heart failure), will recommend repeat TTE and pericardiocentesis - will choose IV Ceftriaxone as a home going antibiotic regimen with plans for 4 weeks of IV therapy (since 05/19) will follow Bam Culp MD Infectious diseases
[2018-05-20] MEDS: ENOXAPARIN 30 MG/0.3 ML SYRINGE SQ SCH (11:36)
[2018-05-20] MEDS: LISINOPRIL 20 MG TABLET PO SCH (20:38)
[2018-05-21] MEDS: PENICILLIN G POTASSIUM 4,000,000 UNIT in 0.9 % SODIUM CHLORIDE 50 ML IV SCH ×4 (00:29→13:00)
[2018-05-21] MEDS: 0.9 % SODIUM CHLORIDE 10 ML SYRINGE IV SCH ×2 (04:26→20:56)
[2018-05-21] MEDS: amLODIPine 10 MG TABLET PO SCH (08:43)
[2018-05-21] MEDS: ENOXAPARIN 40 MG/0.4 ML SYRINGE SQ SCH (08:43)
[2018-05-21] MEDS: INSULIN LISPRO 1 UNIT/0.01 ML UNIT SQ SCH ×4 (09:19→20:55)
--- NOTE | 2018-05-21 13:27 | Discharge Summary ---
Medical - DS: Prov Patient information: Note initiated : 05/21/18 at 1:23 pm Service Date, if different from initiated Date: [] Patient: Solitario Sandoval 72 y/o M admitted on 05/15/18 for weakness. Chief Complaint: [] Date of admission: 05/15/18 23:45 Discharge date: 05/21/18 Primary care physician: Nate Arthur Consults: 05/15/18 Consult to Physician [CONS] Stat Comment: Consulting Provider: Evelyne Hughes Reason For Exam: Physician to Consult 05/19/18 08:32 Consult to Physician [CONS] Routine Comment: Consulting Provider: Bam Culp Reason For Exam: Physician to Consult Medical - DS: Meds - Discharge Medications Prescriptions: cefTRIAXone NA/DEXTROSE,ISO [Ceftriaxone 2 gm Piggyback] 2 gm IV DAILY 28 Days #28 ml Active and Home Medications: Home Medications Benazepril HCl 40 mg PO DAILY@1700 05/16/18 [History Confirmed 05/17/18 Last Taken Unknown] amLODIPine BESYLATE [Amlodipine Besylate] 10 mg PO DAILY 05/16/18 [History Confirmed 05/16/18 Last Taken Unknown] Acetaminophen [Tylenol] 650 mg PO Q6HP PRN tablet 05/21/18 [Rx Last Taken Unknown] cefTRIAXone NA/DEXTROSE,ISO [Ceftriaxone 2 gm Piggyback] 2 gm IV DAILY 28 Days #28 ml 05/21/18 [Rx Last Taken Unknown] Medical - DS: Hosp Hospital course: Discharge diagnosis * Septic arthritis left knee status post joint aspiration/I&D washout by orthopedics. Drain removed by orthopedics. Continue 4 weeks IV antibiotics as per ID specialist. Follow-up with ID specialist as outpatient as advised * Strep pneumo bacteremia-surveillance cultures negative so far. Continue 2 g Rocephin for 28 day as per infectious disease specialist. * Severe sepsis secondary to strep pneumo bacteremia-improved. Likely source right foot cellulitis. White count 32,000-> 24,000-> 29.3->17.5 . Continue antibiotics per ID * Pericardial effusion-we will follow-up with ID. ID recommends possible repeat echocardiogram if worsening leukocytosis, fever or persistent bacteremia. * Cellulitis of the right foot-medicine antibiotics/wound care * Acute renal failure secondary to sepsis and end organ dysfunction-creatinine gradually improving * Diabetes mellitus. SSI/CCD * Hypertension -continue antihypertensives * CODE STATUS: Full code Brief hospital course 05/15 Mr. Sandoval is a 72 year old M with a history of diabetes, hypertension, chronic kidney disease presents the ED for evaluation of swollen red right foot. Patient was in his usual state of health when on Saturday a.m. his right foot was swollen. It is not erythematous. It was not painful. A neighbor placed 8 activated charcoal poultice, which did seem to help the swelling. That continued until today, one somewhere overnight his foot became erythematous. It was noted this morning when his friend came to change the poultice. He noticed that there was pain with flexion his toes. The swelling was actually improved from when it was at its worst. Patient denies any fevers or chills. He's had mild encroachment of the erythema up the ankle this evening. Because of the erythema Lamar presents the ED for evaluation. In the emergency department, his white counts found to be 32,000. Lactate is 2.0. His temperature is 101, his pulse initially was 105-110 respiratory rate 22-23. He's of improved after fluids. He was cultured and received vancomycin. He's been admitted for further treatment of cellulitis and sepsis. Otherwise the patient denies headache, vision changes, sore throat. Said a mild cough for 1 day. No chest pain or tightness, no abdominal pain, nausea or vomiting, diarrhea. No history of stroke, no history of cardiac disease. No history of asthma emphysema, no history of hypothyroidism. He does have a history of kidney disease, follows with Dr. Koch. Dr. Arthur is his primary care physician. 05/16 Starting to feel a little better. Still with some edema on his feet. Blood cultures are now positive for gram-positive cocci in pairs and chains in both sets. Home medications clarified. 05/17-patient complains of excruciating pain left knee. On exam left knee is swollen and tender. Case discussed with Dr. Zarate orthopedics for effusion tap. Case discussed with infectious disease specialist in light of strep pneumo and blood cultures. Pending surveillance cultures. Echocardiogram performed await results. Antibiotics changed to cefazolin as per ID recommendations. patient will be kept n.p.o. as per orthopedic recommendations. 05/18-purulent joint aspirate left knee, cell count 63,900. Likely hematogenous septic arthritis. On antibiotic coverage. Status post joint washout/I&D. Surveillance cultures negative. White count persistent elevation at 26.3. Check baseline CRP and trend. ID consulted. PICC line in 24-48 hours if surveillance cultures negative 05/19-patient doing well. No overnight events. Cultures negative so far. ID recommends changing antibiotics to penicillin G. CT abdomen chest pelvis to rule out infectious etiology in light of worsening leukocytosis at 30,000 today. Otherwise clinically no change since previous day. Arthralgia myalgia improved. No fever chills. 05/20-patient doing well. No overnight events. Continuing penicillin G per ID. Possible discharge in 24 hours if surveillance cultures negative. Place PICC line. Will need outpatient echocardiogram. White count 17.5. Creatinine 1.2. 05/21-Patient doing well. No new events. Will undergo 28 days of IV antibiotics on Rocephin as per ID specialist. Will follow with ID clinic. Will undergo weekly CBC BMP as per ID and results will be faxed to ID clinic. Patient will be monitored by ID on discharge for antibiotic tailoring/further changes or escalations. Detailed discharge instructions as below Discharge diagnosis: . - Time Spent with Patient Total time spent providing and/or coordinating discharge services: Greater than 30 minutes Medical - DS: Exam - Constitutional Vitals: Vital Signs Temp Pulse Resp BP BP Pulse Ox 05/21/18 11:45 98.6 F 91 H 14 132/68 92 05/21/18 08:00 16 93 05/21/18 07:40 99.1 F H 91 H 20 148/70 93 05/21/18 04:00 98.3 F 85 18 149/77 96 05/21/18 00:00 98.9 F 84 16 144/75 94 05/20/18 20:00 98.7 F 92 H 16 147/78 92 05/20/18 16:00 99.4 F H 83 14 133/69 96 Intake and Output 05/20/18 05/21/18 05/21/18 21:59 05:59 13:59 Intake Total 299 166 178 Output Total 300 750 605 Balance -1 -641 -457 Intake: IV 174 116 58 Pfizerpen 4,000,000 Unit In 174 116 58 Sodium Chloride 0.9% 50 ml @ 100 mls/hr IV Q4H [facility] Rx#: [id number] Oral 125 50 120 Output: Void Amount 300 750 605 Other: Meal Dinner Breakfast Percent of Meal Consumed 75% 50% Urine Appearance Clear Urine Color Pale Urine Odor Normal Stool Size Moderate Stool Color Brown Stool Consistency Loose Weight 142 lb Medical - DS: Data Labs on day of discharge: Preliminary micro results at discharge 05/19/18 08:55 Blood Culture - Preliminary Blood 05/19/18 09:08 Blood Culture - Preliminary Blood 05/17/18 04:25 Blood Culture - Preliminary Blood 05/17/18 04:30 Blood Culture - Preliminary Blood 05/17/18 12:16 Anaerobic Culture - Preliminary Aspirate - Knee 05/15/18 20:50 Blood Culture - Preliminary Blood Gram positive cocci Medical - DS: A/P - Patient/Caregiver Discharge Instructions Activity: increase activity as tolerated Diet: Regular Diet Additional Instructions: Discharge Instructions: Strongly recommend follow-up PCP in 5 days and weekly thereafter until completion of antibiotics. If any worsening symptoms noted in next 4 weeks with fever or shaking chills, chest pain, shortness of breath patient required further evaluation of secondary hematogenous seeding/occult infection. Ceftriaxone 2 grams Q 24 for 28 days ( Stop date 06/16/2018) Followup with Dr Robbi [facility] on June 12 2018- 10.30AM PICC line care CBC BMP weekly , Please fax results to Dr Robbi ANDRE[facility] at [phone] Reviewed risk and side effect profile of antibiotic. Untoward adverse reaction including C. difficile/interstitial nephritis. Side effects can be minimized by close follow-up with PCP/infectious disease specialist as advised. Prescriptions: cefTRIAXone NA/DEXTROSE,ISO [Ceftriaxone 2 gm Piggyback] 2 gm IV DAILY 28 Days #28 ml - Follow up Plan Follow up with: Nate Arthur MD [Primary Care Provider] - Disposition: Home, Self-Care Prognosis: Fair Rehab Potential: Fair Overall status at discharge: patient is progressing back to baseline Medical - DS: Qual - VTE Deep Vein Thrombosis/Pulmonary Embolism Present on Admission: No
[2018-05-21] MEDS ORDERED: 0.9 % SODIUM CHLORIDE 10 ML SYRINGE IV PRN (13:38)
[2018-05-21] MEDS ORDERED: cefTRIAXone 2 GM in DEXTROSE 5% IN WATER 50 ML IV ONE (13:45)
[2018-05-21 13:58] LABS: Mean Cell Volume 98.3 fL (80.0-100.0); Platelet Count 661 K/mcL (140-440); RBC 3.32 M/mcL (4.50-5.90); Red Cell Distribution Width 13.4 % (11.5-14.5)
[2018-05-21 14:44] LABS: Eosinophils % (Manual) 1 % (0-7); Lymphocytes % 8 % (15-49); Metamyelocytes % 2 % (0-0); Monocytes % (Manual) 7 % (1-12); Myelocytes % 2 % (0-0); Platelet Estimate INCREASED (NORMAL); RBC Morphology NORMAL (NORMAL); Segmented Neutrophils % 80 % (38-78); Toxic Granulation 1+ (NONE SEEN)
--- NOTE | 2018-05-21 15:03 | Infectious Disease Prog Note ---
Subjective Patient information: Note initiated : 05/21/18 at 3:01 pm Service Date, if different from initiated Date: [] Patient: Solitario Sandoval 72 y/o M admitted on 05/15/18 for weakness. Chief Complaint: [] Principal diagnosis: Left septic knee Interval history: Patient reports doing well. He is eager to go home today. He still has some redness on the lateral aspect of the foot but denies any pain walking. He reports some fullness in the left knee but does not have any pain while walking. Denies any nausea, vomiting, diarrhea, fever, chills. Discussed with him about the importance of a PICC line for long-term intravenous antibiotic therapy and he agrees to have one placed. Objective Objective Narrative: Alert, oriented x3 No thrush Chest clear to auscultation except for at bases where decreased breath sounds Heart sounds normal, no murmurs auscultated Bowel sounds present, nontender to touch, soft, nondistended, no guarding Right foot: Has some area of redness on the lateral aspect, nontender Left knee: Slightly swollen compared to the right knee. No redness, tenderness, warmth, drainage - Vital Signs Vital signs: Vital Signs Temp Pulse Resp BP BP Pulse Ox 05/21/18 11:45 37.0 C 91 H 14 132/68 92 05/21/18 08:00 16 93 05/21/18 07:40 37.3 C H 91 H 20 148/70 93 05/21/18 04:00 36.8 C 85 18 149/77 96 05/21/18 00:00 37.2 C 84 16 144/75 94 05/20/18 20:00 37.1 C 92 H 16 147/78 92 05/20/18 16:00 37.4 C H 83 14 133/69 96 Intake and Output 05/21/18 05/21/18 05/21/18 05:59 13:59 21:59 Intake Total 166 178 Output Total 750 605 Balance -584 -822 Intake: IV 116 58 Pfizerpen 4,000,000 Unit In 116 58 Sodium Chloride 0.9% 50 ml @ 100 mls/hr IV Q4H [facility] Rx#: [id number] Oral 50 120 Output: Void Amount 750 605 Other: Meal Breakfast Percent of Meal Consumed 50% Urine Appearance Clear Urine Color Pale Urine Odor Normal Stool Size Moderate Stool Color Brown Stool Consistency Loose Intake & Output: Intake & Output 05/21/18 05/21/18 05/21/18 05:59 13:59 21:59 Intake Total 166 178 Output Total 750 605 Balance -584 -427 Intake: IV 116 58 Pfizerpen 4,000,000 Unit In 116 58 Sodium Chloride 0.9% 50 ml @ 100 mls/hr IV Q4H [facility] Rx#: [id number] Oral 50 120 Output: Void Amount 750 605 Other: Meal Breakfast Percent of Meal Consumed 50% Urine Appearance Clear Urine Color Pale Urine Odor Normal Stool Size Moderate Stool Color Brown Stool Consistency Loose - Lab 05/21/18 13:20 05/20/18 04:36 Most recent lab results Calcium 8.4 mg/dl (8.6-10.4) L 05/20/18 04:36 Phosphorus 3.4 mg/dL (2.7-4.5) 05/20/18 04:36 Magnesium 2.1 mg/dL (1.6-2.5) 05/20/18 04:36 Microbiology 05/19/18 08:55 Blood Blood Culture - Preliminary 05/19/18 09:08 Blood Blood Culture - Preliminary 05/17/18 04:25 Blood Blood Culture - Preliminary 05/17/18 04:30 Blood Blood Culture - Preliminary 05/17/18 12:39 Aspirate - Knee Gram Stain - Final 05/17/18 12:39 Aspirate - Knee Body Fluid Culture - Final 05/17/18 12:16 Aspirate - Knee Gram Stain - Final 05/17/18 12:16 Aspirate - Knee Anaerobic Culture - Preliminary 05/15/18 20:55 Blood Blood Culture - Final Streptococcus pneumoniae 05/15/18 20:50 Blood Blood Culture - Preliminary Gram positive cocci Medications Active Medications: Acetaminophen (Tylenol) 650 mg PO Q6HP PRN PRN Reason: PAIN/FEVER > 101 Hydrocodone Bitart/Acetaminophen ([place] 5/325mg) 1 tab PO Q4HP PRN PRN Reason: PAIN LEVEL 3-6 Amlodipine Besylate (Norvasc) 10 mg PO DAILY [facility] Admin: 05/21/18 08:43 Dose: 10 mg Documented by: BRIELLE Cosigned by: MARLIN Admin: 05/20/18 09:36 Dose: 10 mg Documented by: SHIRLEY Cosigned by: MARLIN Admin: 05/19/18 07:59 Dose: 10 mg Documented by: Admin: 05/18/18 08:52 Dose: 10 mg Documented by: Admin: 05/17/18 08:14 Dose: 10 mg Documented by: RUBENS Dextrose (Dextrose 50%) 0 ml IV UD PRN PRN Reason: Hypoglycemia Diagnostic Test (Pha) (Accu-Chek) 1 each FS ACHS [facility] Last Admin: 05/21/18 11:06 Dose: 1 each Documented by: BRIELLE Cosigned by: LE Admin: 05/21/18 07:50 Dose: 1 each Documented by: BRIELLE Cosigned by: MARLIN Admin: 05/20/18 20:40 Dose: 1 each Documented by: Admin: 05/20/18 17:11 Dose: 1 each Documented by: Admin: 05/20/18 11:55 Dose: 1 each Documented by: SHIRLEY Cosigned by: MARLIN Admin: 05/20/18 08:00 Dose: 1 each Documented by: Admin: 05/19/18 22:02 Dose: 1 each Documented by: Admin: 05/19/18 18:08 Dose: 1 each Documented by: Admin: 05/19/18 11:09 Dose: 1 each Documented by: Admin: 05/19/18 07:17 Dose: 1 each Documented by: Admin: 05/18/18 21:18 Dose: 1 each Documented by: Admin: 05/18/18 16:58 Dose: 1 each Documented by: Admin: 05/18/18 13:53 Dose: 1 each Documented by: Admin: 05/18/18 11:23 Dose: 1 each Documented by: Admin: 05/18/18 08:55 Dose: 1 each Documented by: Admin: 05/17/18 21:31 Dose: 1 each Documented by: Admin: 05/17/18 17:33 Dose: 1 each Documented by: Admin: 05/17/18 13:19 Dose: 1 each Documented by: Admin: 05/17/18 07:42 Dose: 1 each Documented by: Admin: 05/16/18 20:19 Dose: 1 each Documented by: Admin: 05/16/18 17:00 Dose: 1 each Documented by: Admin: 05/16/18 12:22 Dose: 1 each Documented by: Admin: 05/16/18 07:33 Dose: 1 each Documented by: ARIAN Enoxaparin Sodium (Lovenox) 40 mg SQ DAILY [facility] Last Admin: 05/21/18 08:43 Dose: 40 mg Documented by: BRIELLE Cosigned by: MARLIN Admin: 05/20/18 09:31 Dose: 40 mg Documented by: SHIRLEY Cosigned by: MARLIN Glucose (Insta-Glucose) 15 gm PO PRN PRN PRN Reason: Hypoglycemia Heparin Sodium (Porcine) (Heparin Flush) 2 ml IV Q12 [facility] Acetaminophen (Ofirmev) 650 mg in 65 mls @ 130 mls/hr IV Q6HP PRN PRN Reason: PAIN/FEVER > 101 Penicillin G Potassium 4,000, (000 unit/ Sodium Chloride) 58 mls @ 100 mls/hr IV Q4H [facility] Last Admin: 05/21/18 13:00 Dose: 100 mls/hr Documented by: Infusion: 05/21/18 10:14 Dose: 0 mls/hr Documented by: Admin: 05/21/18 09:18 Dose: 100 mls/hr Documented by: Infusion: 05/21/18 05:01 Dose: 100 mls/hr Documented by: Admin: 05/21/18 04:26 Dose: 100 mls/hr Documented by: Infusion: 05/21/18 01:04 Dose: 100 mls/hr Documented by: Admin: 05/21/18 00:29 Dose: 100 mls/hr Documented by: Infusion: 05/20/18 21:12 Dose: 100 mls/hr Documented by: [email or web address] Admin: 05/20/18 20:37 Dose: 100 mls/hr Documented by: Infusion: 05/20/18 17:46 Dose: 100 mls/hr Documented by: Admin: 05/20/18 17:11 Dose: 100 mls/hr Documented by: Infusion: 05/20/18 14:18 Dose: 100 mls/hr Documented by: Admin: 05/20/18 13:43 Dose: 100 mls/hr Documented by: Infusion: 05/20/18 11:12 Dose: 100 mls/hr Documented by: Admin: 05/20/18 10:37 Dose: 100 mls/hr Documented by: Infusion: 05/20/18 06:03 Dose: 100 mls/hr Documented by: Admin: 05/20/18 05:28 Dose: 100 mls/hr Documented by: Infusion: 05/20/18 01:08 Dose: 100 mls/hr Documented by: Admin: 05/20/18 00:33 Dose: 100 mls/hr Documented by: Infusion: 05/19/18 22:30 Dose: 100 mls/hr Documented by: Admin: 05/19/18 21:55 Dose: 100 mls/hr Documented by: Infusion: 05/19/18 18:44 Dose: 100 mls/hr Documented by: Admin: 05/19/18 18:09 Dose: 100 mls/hr Documented by: [email or web address] Infusion: 05/19/18 13:42 Dose: 100 mls/hr Documented by: [email or web address] Admin: 05/19/18 13:07 Dose: 100 mls/hr Documented by: [email or web address] Insulin Human Lispro (Humalog) 0 unit SQ ACHS [facility]; Protocol Last Admin: 05/21/18 11:38 Dose: 8 units Documented by: BRIELLE Cosigned by: MARLIN Admin: 05/21/18 09:19 Dose: Not Given Documented by: LE Non-Admin Reason: No Coverage Needed Admin: 05/20/18 20:45 Dose: 6 units Documented by: Admin: 05/20/18 17:27 Dose: 4 units Documented by: Admin: 05/20/18 11:55 Dose: 6 units Documented by: SHIRLEY Cosigned by: MARLIN Admin: 05/20/18 07:59 Dose: 2 units Documented by: Admin: 05/19/18 22:31 Dose: 6 units Documented by: Admin: 05/19/18 18:08 Dose: 4 units Documented by: [email or web address] Admin: 05/19/18 12:15 Dose: 6 units Documented by: [email or web address] Admin: 05/19/18 07:59 Dose: 2 units Documented by: [email or web address] Admin: 05/18/18 21:37 Dose: 6 units Documented by: [email or web address] Admin: 05/18/18 16:58 Dose: 8 units Documented by: [email or web address] Admin: 05/18/18 13:54 Dose: 8 units Documented by: [email or web address] Admin: 05/18/18 11:38 Dose: 14 units Documented by: [email or web address] Admin: 05/18/18 08:56 Dose: Not Given Documented by: LARA Non-Admin Reason: No Coverage Needed Admin: 05/17/18 21:31 Dose: 12 units Documented by: Admin: 05/17/18 17:34 Dose: 8 units Documented by: Admin: 05/17/18 15:32 Dose: Not Given Documented by: RUBENS Non-Admin Reason: NPO and going to surgery Admin: 05/17/18 08:15 Dose: 2 units Documented by: Admin: 05/16/18 20:20 Dose: 4 units Documented by: Admin: 05/16/18 16:59 Dose: 6 units Documented by: Admin: 05/16/18 12:30 Dose: 12 units Documented by: Admin: 05/16/18 07:41 Dose: 6 units Documented by: ARIAN Lisinopril (Zestril) 40 mg PO HS [facility] Last Admin: 05/20/18 20:38 Dose: 40 mg Documented by: Admin: 05/19/18 21:57 Dose: 40 mg Documented by: Admin: 05/18/18 21:07 Dose: 40 mg Documented by: QUINTON Comments: would not scan Ondansetron HCl (Zofran) 4 mg IV Q6HP PRN PRN Reason: Nausea And Vomiting Sodium Chloride (Saline Flush) 10 ml IV UD PRN PRN Reason: FLUSH Sodium Chloride (Saline Flush) 10 ml IV Q12 [facility] Assessment and Plan - Narrative A/P Narrative: A: 1. Strept pneumo bacteremia with subseq seeding of left knee joint causing [place] septic arthritis - likely source is right foot cellulitis - repeat Cx neg since 05/16 - s/p surgical I&D of left knee joint - severe infection leading to sepsis, no shock: now resolved 2. Moderate pericardial effusion -We will plan for repeat TTE given uptrending leukocytosis 3. Rt foot cellulitis: almost resolved Recommendations: - Continue IV Penicillin G 4 million units q4 hrs for now, day 3 - PICC line placement today - will recommend repeat TTE - will choose IV Ceftriaxone as a home going antibiotic regimen with plans for 4 weeks of IV therapy (with a stop date of 06/16/18) -Follow-up labs: CBC and BMP weekly. Please fax results to [phone], at tention Dr. Culp ID follow-up scheduled for 05/15/18 at 10:30 AM in ID clinic will follow Bam Culp MD Infectious diseases
[2018-05-21] MEDS: LISINOPRIL 20 MG TABLET PO SCH (20:56)
[2018-05-21] MEDS ORDERED: 0.9 % SODIUM CHLORIDE 10 ML SYRINGE IV SCH (21:00)
[2018-05-21] MEDS: HYDROcodone/APAP 5/325MG TABLET PO PRN (21:23)
[2018-05-22] MEDS: HYDROcodone/APAP 5/325MG TABLET PO PRN (03:52)
[2018-05-22] MEDS: INSULIN LISPRO 1 UNIT/0.01 ML UNIT SQ SCH ×4 (07:34→21:33)
[2018-05-22] MEDS: ENOXAPARIN 40 MG/0.4 ML SYRINGE SQ SCH (08:55)
[2018-05-22] MEDS: amLODIPine 10 MG TABLET PO SCH (08:55)
[2018-05-22] MEDS: cefTRIAXone 2 GM in DEXTROSE 5% IN WATER 50 ML IV SCH (08:55)
[2018-05-22] MEDS: 0.9 % SODIUM CHLORIDE 10 ML SYRINGE IV SCH ×2 (08:55→21:44)
[2018-05-22 09:15] LABS: Basophils # (Auto) 0 K/mcL (0.0-0.3); Basophils % (Auto) 0.1 % (0.0-2.0); Eosinophils # (Auto) 0.1 K/mcL (0.0-0.7); Eosinophils % (Auto) 0.4 % (0.0-7.0); Granulocytes % (Auto) 88.5 % (38.0-78.0); Lymphocytes # (Auto) 1.4 K/mcL (1.5-4.8); Lymphocytes % (Auto) 4.9 % (15.5-49.0); Mean Cell Volume 98.3 fL (80.0-100.0); Mean Corpuscular HGB Conc 32.5 g/dL (31.0-36.0); Monocytes # (Auto) 1.8 K/mcL (0.1-0.9); Monocytes % (Auto) 6.1 % (1.0-12.0); Platelet Count 741 K/mcL (140-440); RBC 3.56 M/mcL (4.50-5.90); Red Cell Distribution Width 13.2 % (11.5-14.5)
[2018-05-22 10:51] LABS: ALT/SGPT 15 U/l (0-40); Albumin 2.6 gm/dL (3.2-5.2); Albumin/Globulin Ratio 0.7 (1.0-2.3); Alkaline Phosphatase 113 U/L (39-117); Bilirubin,Direct < 0.2 mg/dL (0.0-0.3); Blood Urea Nitrogen 14 mg/dl (8-23); Gamma Glutamyl Transpeptidase 40 U/L (8-61); Uric Acid 4.5 mg/dL (2.5-8.0)
[2018-05-22 11:40] LABS: Mean Cell Volume 98.3 fL (80.0-100.0); Mean Corpuscular HGB Conc 32.7 g/dL (31.0-36.0); Platelet Count 718 K/mcL (140-440); RBC 3.39 M/mcL (4.50-5.90); Red Cell Distribution Width 13.4 % (11.5-14.5)
--- NOTE | 2018-05-22 11:41 | Internal Med Progress Note ---
Medical - PN: Subj Patient information: Note initiated : 05/22/18 at 11:38 am Service Date, if different from initiated Date: [] Patient: Solitario Sandoval a 72 y/o M admitted on 05/15/18 for weakness. Chief Complaint: [] Interval history: 05/15 Mr. Sandoval is a 72 year old M with a history of diabetes, hypertension, chronic kidney disease presents the ED for evaluation of swollen red right foot. Patient was in his usual state of health when on Saturday a.m. his right foot was swollen. It is not erythematous. It was not painful. A neighbor placed 8 activated charcoal poultice, which did seem to help the swelling. That continued until today, one somewhere overnight his foot became erythematous. It was noted this morning when his friend came to change the poultice. He noticed that there was pain with flexion his toes. The swelling was actually improved from when it was at its worst. Patient denies any fevers or chills. He's had mild encroachment of the erythema up the ankle this evening. Because of the erythema Lamar presents the ED for evaluation. In the emergency department, his white counts found to be 32,000. Lactate is 2.0. His temperature is 101, his pulse initially was 105-110 respiratory rate 22-23. He's of improved after fluids. He was cultured and received vancomycin. He's been admitted for further treatment of cellulitis and sepsis. Otherwise the patient denies headache, vision changes, sore throat. Said a mild cough for 1 day. No chest pain or tightness, no abdominal pain, nausea or vomiting, diarrhea. No history of stroke, no history of cardiac disease. No history of asthma emphysema, no history of hypothyroidism. He does have a history of kidney disease, follows with Dr. Koch. Dr. Arthur is his primary care physician. 05/16 Starting to feel a little better. Still with some edema on his feet. Blood cultures are now positive for gram-positive cocci in pairs and chains in both sets. Home medications clarified. 05/17-patient complains of excruciating pain left knee. On exam left knee is swollen and tender. Case discussed with Dr. Zarate orthopedics for effusion tap. Case discussed with infectious disease specialist in light of strep pneumo and blood cultures. Pending surveillance cultures. Echocardiogram performed await results. Antibiotics changed to cefazolin as per ID recommendations. patient will be kept n.p.o. as per orthopedic recommendations. 05/18-purulent joint aspirate left knee, cell count 63,900. Likely hematogenous septic arthritis. On antibiotic coverage. Status post joint washout/I&D. Surveillance cultures negative. White count persistent elevation at 26.3. Check baseline CRP and trend. ID consulted. PICC line in 24-48 hours if surveillance cultures negative 05/19-patient doing well. No overnight events. Cultures negative so far. ID recommends changing antibiotics to penicillin G. CT abdomen chest pelvis to rule out infectious etiology in light of worsening leukocytosis at 30,000 today. Otherwise clinically no change since previous day. Arthralgia myalgia improved. No fever chills. 05/20-patient doing well. No overnight events. Continuing penicillin G per ID. Possible discharge in 24 hours if surveillance cultures negative. Place PICC line. Will need outpatient echocardiogram. White count 17.5. Creatinine 1.2. 05/21-Patient doing well. No new events. Will undergo 28 days of IV antibiotics on Rocephin as per ID specialist. Will follow with ID clinic. Will undergo weekly CBC BMP as per ID and results will be faxed to ID clinic. Patient will be monitored by ID on discharge for antibiotic tailoring/further changes or escalations. Addendum-patient discharge was canceled due to white count up from 17-23. Stat echocardiogram ordered. PICC line could not be placed. 05/22-echocardiogram reveals persistent pericardial effusion. On antibiotics per ID recommendations. White count uptrending now at 28,000. However no fever. Short-lived pleuritic chest pain. Repeat white count 33,000. Await further recommendations from infectious disease specialist. Will likely need pericardiocentesis/further source evaluation. - Constitutional Vitals: Vital Signs Temp Pulse Resp BP Pulse Ox 97.2 F 90 16 113/75 93 05/22/18 08:00 05/22/18 08:00 05/22/18 08:00 05/22/18 08:00 05/22/18 08:00 Period Temp Pulse Resp BP Sys/Landis Pulse Ox Last 24 Hr 97.2 F-99.3 F 80-98 14-20 113-149/68-79 92-94 Intake and Output 05/21/18 05/22/18 05/22/18 21:59 05:59 13:59 Intake Total 240 475 650 Output Total 350 150 250 Balance -110 325 400 Weight 140 lb 8 oz Intake & Output: Intake & Output 05/21/18 05/22/18 05/22/18 21:59 05:59 13:59 Intake Total 240 475 650 Output Total 350 150 250 Balance -110 325 400 Weight 140 lb 8 oz Intake: IV 50 Rocephin 2 gm In Dextrose 5% in 50 Water 50 ml @ 100 mls/hr IV DAILY [facility] Rx#:[id number] Oral 240 475 600 Output: Void Amount 350 150 250 Other: Meal Dinner Percent of Meal Consumed 10% Feeding Ability Independent Urine Appearance Clear Clear Clear Urine Color Bright Yellow Bright Yellow Bright Yellow Urine Odor Normal Normal # Voids 200 General appearance: no acute distress Exam: Alert No labored breathing Knee pain improved Afebrile No abdominal pain No rash Medical - PN: Obj Da - Labs CBC & Chem 7: 05/22/18 08:27 05/22/18 08:27 Labs: Abnormal Lab Results 05/22/18 05/22/18 05/21/18 08:27 08:27 13:20 WBC 28.8 H 23.3 H RBC 3.56 L 3.32 L Hgb 11.4 L 10.8 L Hct 35.0 L 32.7 L Plt Count 741 H 661 H MPV 7.3 L Gran % 88.5 H Lymph % (Auto) 4.9 L Gran # 25.5 H Lymph # (Auto) 1.4 L [place] # (Auto) 1.8 H Seg Neutrophils % 80 H Lymphocytes % 8 L Metamyelocytes % 2 H Myelocytes % 2 H WBC Morphology Abnorm A Toxic Granulation 1+ A Platelet Estimate Increased A BUN Creatinine 1.4 H Glucose 185 H Calcium Lactate Dehydrogenase 255 H Total Protein Albumin 2.6 L Globulin 4.0 H Albumin/Globulin Ratio 0.7 L Triglycerides 05/20/18 05/20/18 04:36 04:36 WBC 17.5 H RBC 3.34 L Hgb 10.8 L Hct 32.8 L Plt Count 612 H MPV Gran % Lymph % (Auto) Gran # Lymph # (Auto) [place] # (Auto) Seg Neutrophils % Lymphocytes % Metamyelocytes % 2 H Myelocytes % 1 H WBC Morphology Abnorm A Toxic Granulation 1+ A Platelet Estimate Increased A BUN 24 H Creatinine Glucose 162 H Calcium 8.4 L Lactate Dehydrogenase 252 H Total Protein 5.6 L Albumin 2.3 L Globulin Albumin/Globulin Ratio 0.7 L Triglycerides 219 H Meds: Medications Acetaminophen (Tylenol) 650 mg PO Q6HP PRN PRN Reason: PAIN/FEVER > 101 Hydrocodone Bitart/Acetaminophen ([place] 5/325mg) 1 tab PO Q4HP PRN PRN Reason: PAIN LEVEL 3-6 Last Admin: 05/22/18 03:52 Dose: 1 tab Documented by: Amlodipine Besylate (Norvasc) 10 mg PO DAILY [facility] Last Admin: 05/22/18 08:55 Dose: 10 mg Documented by: Dextrose (Dextrose 50%) 0 ml IV UD PRN PRN Reason: Hypoglycemia Diagnostic Test (Pha) (Accu-Chek) 1 each FS [facility] Last Admin: 05/22/18 07:32 Dose: 1 each Documented by: Enoxaparin Sodium (Lovenox) 40 mg SQ DAILY [facility] Last Admin: 05/22/18 08:55 Dose: 40 mg Documented by: Glucose (Insta-Glucose) 15 gm PO PRN PRN PRN Reason: Hypoglycemia Heparin Sodium (Porcine) (Heparin Flush) 2 ml IV Q12 [facility] Last Admin: 05/22/18 08:55 Dose: Not Given Documented by: Acetaminophen (Ofirmev) 650 mg in 65 mls @ 130 mls/hr IV Q6HP PRN PRN Reason: PAIN/FEVER > 101 Ceftriaxone Sodium 2 gm/ (Dextrose) 50 mls @ 100 mls/hr IV DAILY [facility] Last Infusion: 05/22/18 09:25 Dose: Infused Documented by: Insulin Human Lispro (Humalog) 0 unit SQ [facility]; Protocol Last Admin: 05/22/18 07:34 Dose: 2 units Documented by: Lisinopril (Zestril) 40 mg PO HS [facility] Last Admin: 05/21/18 20:56 Dose: 40 mg Documented by: Ondansetron HCl (Zofran) 4 mg IV Q6HP PRN PRN Reason: Nausea And Vomiting Sodium Chloride (Saline Flush) 10 ml IV UD PRN PRN Reason: FLUSH Sodium Chloride (Saline Flush) 10 ml IV Q12 [facility] Last Admin: 05/22/18 08:55 Dose: 10 ml Documented by: Medical - PN: A/P - Time Spent With Patient Total time spent is greater than 50% in coordination of care (as documented) at patient's floor/unit and/or counseling patient: 25 - 35 minutes (1) Cellulitis Status: Acute Assessment and plan: 72-year-old male with diabetes mellitus, presenting with swelling of the right foot, associated with less than 24 hours now of erythema. Found to have significant leukocytosis, tachycardia and fever consistent with sepsis from cellulitis. * Severe sepsis with leukemoid reaction secondary to Streptococcus pneumonia- high probability of occult abscess in light of worsening leukocytosis. ID on board. White count 32,000-> 24,000-> 29.3->17.5 ->23->[id number]. Stat e chocardiogram reveals persistent pericardial effusion. Further recommendations from ID specialist * Strep pneumo bacteremia-surveillance cultures negative so far. On antibiotics per ID * Pericardial effusion-infectious disease specialist discussed case with cardiology. Await further recommendations from ID * Septic arthritis left knee status post joint aspiration/I&D washout by orthopedics. Drain removed by orthopedics. * Cellulitis of the right foot-continue management as above * Acute renal failure secondary to sepsis and end organ dysfunction-creatinine gradually improving * Diabetes mellitus. SSI/CCD * Hypertension -continue antihypertensives * CODE STATUS: Full code * Prophylaxis: Lovenox Plan * Continue antibiotics per ID * PICC line placement * Further investigation as per ID recommendations Current Visit: Yes Medical - PN: Qual - Stroke Symptom Onset Unknown: No - VTE Deep Vein Thrombosis/Pulmonary Embolism Present on Admission: No
--- NOTE | 2018-05-22 12:05 | Infectious Disease Prog Note ---
Subjective Patient information: Note initiated : 05/22/18 at 11:57 am Service Date, if different from initiated Date: [] Patient: Solitario Sandoval 72 y/o M admitted on 05/15/18 for weakness. Chief Complaint: [] Principal diagnosis: Left septic knee Interval history: Pt doing well. Reports no fever, chills, n/v/d. Mentions that his left lower chest pain is gone after he walked around. Denies any pain with deep breathing. Objective Objective Narrative: ao x 3, in nad no thrush chest cta except slightly decreased BS at bases s1 s2 normal, no m/r/g bs ++ nttd no edema except over left knee: non tender, slightly warm, no overlying redness or drainage - Vital Signs Vital signs: Vital Signs Temp Pulse Resp BP BP Pulse Ox 05/22/18 11:45 36.6 C 88 16 133/70 92 05/22/18 08:00 36.2 C 90 16 113/75 93 05/22/18 03:40 36.6 C 84 16 143/79 93 05/22/18 00:00 37.1 C 80 16 124/72 94 05/21/18 20:00 37.4 C H 98 H 18 149/78 92 05/21/18 16:00 36.9 C 87 16 140/78 93 05/21/18 15:13 37.3 C H 95 H 20 141/77 93 Intake and Output 05/21/18 05/22/18 05/22/18 21:59 05:59 13:59 Intake Total 240 475 650 Output Total 350 150 400 Balance -110 325 250 Intake: IV 50 Rocephin 2 gm In Dextrose 5% in 50 Water 50 ml @ 100 mls/hr IV DAILY [facility] Rx#:[id number] Oral 240 475 600 Output: Void Amount 350 150 400 Other: Meal Dinner Percent of Meal Consumed 10% Feeding Ability Independent Urine Appearance Clear Clear Clear Urine Color Bright Yellow Bright Yellow Bright Yellow Urine Odor Normal Normal # Voids 200 1 Weight 63.73 kg Intake & Output: Intake & Output 05/21/18 05/22/18 05/22/18 21:59 05:59 13:59 Intake Total 240 475 650 Output Total 350 150 400 Balance -110 325 250 Weight 63.73 kg Intake: IV 50 Rocephin 2 gm In Dextrose 5% in 50 Water 50 ml @ 100 mls/hr IV DAILY [facility] Rx#:[id number] Oral 240 475 600 Output: Void Amount 350 150 400 Other: Meal Dinner Percent of Meal Consumed 10% Feeding Ability Independent Urine Appearance Clear Clear Clear Urine Color Bright Yellow Bright Yellow Bright Yellow Urine Odor Normal Normal # Voids 200 1 - Lab 05/22/18 11:08 05/22/18 08:27 Most recent lab results Calcium 8.8 mg/dl (8.6-10.4) 05/22/18 08:27 Phosphorus 2.8 mg/dL (2.7-4.5) 05/22/18 08:27 Magnesium 2.1 mg/dL (1.6-2.5) 05/22/18 08:27 Microbiology 05/19/18 08:55 Blood Blood Culture - Preliminary 05/19/18 09:08 Blood Blood Culture - Preliminary 05/17/18 04:25 Blood Blood Culture - Final 05/17/18 04:30 Blood Blood Culture - Final 05/17/18 12:39 Aspirate - Knee Gram Stain - Final 05/17/18 12:39 Aspirate - Knee Body Fluid Culture - Final 05/17/18 12:16 Aspirate - Knee Gram Stain - Final 05/17/18 12:16 Aspirate - Knee Anaerobic Culture - Preliminary 05/15/18 20:55 Blood Blood Culture - Final Streptococcus pneumoniae 05/15/18 20:50 Blood Blood Culture - Preliminary Gram positive cocci Medications Active Medications: Acetaminophen (Tylenol) 650 mg PO Q6HP PRN PRN Reason: PAIN/FEVER > 101 Hydrocodone Bitart/Acetaminophen ([place] 5/325mg) 1 tab PO Q4HP PRN PRN Reason: PAIN LEVEL 3-6 Last Admin: 05/22/18 03:52 Dose: 1 tab Documented by: Admin: 05/21/18 21:23 Dose: 1 tab Documented by: DELLA Amlodipine Besylate (Norvasc) 10 mg PO DAILY [facility] Last Admin: 05/22/18 08:55 Dose: 10 mg Documented by: Admin: 05/21/18 08:43 Dose: 10 mg Documented by: BRIELLE Cosigned by: MARLIN Admin: 05/20/18 09:36 Dose: 10 mg Documented by: SHIRLEY Cosigned by: MARLIN Admin: 05/19/18 07:59 Dose: 10 mg Documented by: [email or web address] Admin: 05/18/18 08:52 Dose: 10 mg Documented by: Admin: 05/17/18 08:14 Dose: 10 mg Documented by: RUBENS Dextrose (Dextrose 50%) 0 ml IV UD PRN PRN Reason: Hypoglycemia Diagnostic Test (Pha) (Accu-Chek) 1 each FS ACHS [facility] Last Admin: 05/22/18 11:51 Dose: 1 each Documented by: Admin: 05/22/18 07:32 Dose: 1 each Documented by: Admin: 05/21/18 20:55 Dose: 1 each Documented by: Admin: 05/21/18 18:05 Dose: 1 each Documented by: Admin: 05/21/18 11:06 Dose: 1 each Documented by: BRIELLE Cosigned by: LE Admin: 05/21/18 07:50 Dose: 1 each Documented by: BRIELLE Cosigned by: MARLIN Admin: 05/20/18 20:40 Dose: 1 each Documented by: Admin: 05/20/18 17:11 Dose: 1 each Documented by: Admin: 05/20/18 11:55 Dose: 1 each Documented by: SHIRLEY Cosigned by: MARLIN Admin: 05/20/18 08:00 Dose: 1 each Documented by: Admin: 05/19/18 22:02 Dose: 1 each Documented by: Admin: 05/19/18 18:08 Dose: 1 each Documented by: [email or web address] Admin: 05/19/18 11:09 Dose: 1 each Documented by: [email or web address] Admin: 05/19/18 07:17 Dose: 1 each Documented by: [email or web address] Admin: 05/18/18 21:18 Dose: 1 each Documented by: Admin: 05/18/18 16:58 Dose: 1 each Documented by: Admin: 05/18/18 13:53 Dose: 1 each Documented by: Admin: 05/18/18 11:23 Dose: 1 each Documented by: Admin: 05/18/18 08:55 Dose: 1 each Documented by: Admin: 05/17/18 21:31 Dose: 1 each Documented by: Admin: 05/17/18 17:33 Dose: 1 each Documented by: Admin: 05/17/18 13:19 Dose: 1 each Documented by: Admin: 05/17/18 07:42 Dose: 1 each Documented by: Admin: 05/16/18 20:19 Dose: 1 each Documented by: Admin: 05/16/18 17:00 Dose: 1 each Documented by: Admin: 05/16/18 12:22 Dose: 1 each Documented by: Admin: 05/16/18 07:33 Dose: 1 each Documented by: ARIAN Enoxaparin Sodium (Lovenox) 40 mg SQ DAILY [facility] Last Admin: 05/22/18 08:55 Dose: 40 mg Documented by: Admin: 05/21/18 08:43 Dose: 40 mg Documented by: BRIELLE Cosigned by: MARLIN Admin: 05/20/18 09:31 Dose: 40 mg Documented by: SHIRLEY Cosigned by: MARLIN Glucose (Insta-Glucose) 15 gm PO PRN PRN PRN Reason: Hypoglycemia Heparin Sodium (Porcine) (Heparin Flush) 2 ml IV Q12 [facility] Last Admin: 05/22/18 08:55 Dose: Not Given Documented by: BUSHRA Non-Admin Reason: no PICC Admin: 05/21/18 20:55 Dose: Not Given Documented by: DELLA Non-Admin Reason: no PICC Acetaminophen (Ofirmev) 650 mg in 65 mls @ 130 mls/hr IV Q6HP PRN PRN Reason: PAIN/FEVER > 101 Ceftriaxone Sodium 2 gm/ (Dextrose) 50 mls @ 100 mls/hr IV DAILY [facility] Last Infusion: 05/22/18 09:25 Dose: 0 mls/hr Documented by: Admin: 05/22/18 08:55 Dose: 100 mls/hr Documented by: BUSHRA Insulin Human Lispro (Humalog) 0 unit SQ ACHS [facility]; Protocol Last Admin: 05/22/18 11:51 Dose: 10 units Documented by: Admin: 05/22/18 07:34 Dose: 2 units Documented by: Admin: 05/21/18 20:55 Dose: 10 units Documented by: Admin: 05/21/18 17:21 Dose: 10 units Documented by: Admin: 05/21/18 11:38 Dose: 8 units Documented by: BRIELLE Cosigned by: MARLIN Admin: 05/21/18 09:19 Dose: Not Given Documented by: LE Non-Admin Reason: No Coverage Needed Admin: 05/20/18 20:45 Dose: 6 units Documented by: Admin: 05/20/18 17:27 Dose: 4 units Documented by: Admin: 05/20/18 11:55 Dose: 6 units Documented by: SHIRLEY Cosigned by: MARLIN Admin: 05/20/18 07:59 Dose: 2 units Documented by: Admin: 05/19/18 22:31 Dose: 6 units Documented by: Admin: 05/19/18 18:08 Dose: 4 units Documented by: [email or web address] Admin: 05/19/18 12:15 Dose: 6 units Documented by: [email or web address] Admin: 05/19/18 07:59 Dose: 2 units Documented by: [email or web address] Admin: 05/18/18 21:37 Dose: 6 units Documented by: [email or web address] Admin: 05/18/18 16:58 Dose: 8 units Documented by: [email or web address] Admin: 05/18/18 13:54 Dose: 8 units Documented by: [email or web address] Admin: 05/18/18 11:38 Dose: 14 units Documented by: [email or web address] Admin: 05/18/18 08:56 Dose: Not Given Documented by: LARA Non-Admin Reason: No Coverage Needed Admin: 05/17/18 21:31 Dose: 12 units Documented by: Admin: 05/17/18 17:34 Dose: 8 units Documented by: [email or web address] Admin: 05/17/18 15:32 Dose: Not Given Documented by: RUBENS Non-Admin Reason: NPO and going to surgery Admin: 05/17/18 08:15 Dose: 2 units Documented by: Admin: 05/16/18 20:20 Dose: 4 units Documented by: Admin: 05/16/18 16:59 Dose: 6 units Documented by: Admin: 05/16/18 12:30 Dose: 12 units Documented by: Admin: 05/16/18 07:41 Dose: 6 units Documented by: ARIAN Lisinopril (Zestril) 40 mg PO HS [facility] Last Admin: 05/21/18 20:56 Dose: 40 mg Documented by: Admin: 05/20/18 20:38 Dose: 40 mg Documented by: Admin: 05/19/18 21:57 Dose: 40 mg Documented by: Admin: 05/18/18 21:07 Dose: 40 mg Documented by: QUINTON Comments: would not scan Ondansetron HCl (Zofran) 4 mg IV Q6HP PRN PRN Reason: Nausea And Vomiting Sodium Chloride (Saline Flush) 10 ml IV UD PRN PRN Reason: FLUSH Sodium Chloride (Saline Flush) 10 ml IV Q12 [facility] Last Admin: 05/22/18 08:55 Dose: 10 ml Documented by: Admin: 05/21/18 20:56 Dose: 10 ml Documented by: DELLA Assessment and Plan - Narrative A/P Narrative: A: 1. Strept pneumo bacteremia with subseq seeding of left knee joint causing [place] septic arthritis - likely source is right foot cellulitis - repeat Cx neg since 05/16 - s/p surgical I&D of left knee joint - severe infection leading to sepsis, no shock: now resolved 2. Mild pericardial effusion with no concerns for hemodynamic compromise 3. Uptrending leucocytosis: - 33k today - Procalcitonin elev at ~0.5 - possible causes: seeding due to Pneumococcal bacteremia; could inv lungs, spine, prostate - a whole body imaging with broadening of current antibiotic therapy seems reasonable Recommendations: - Continue IV Ceftriaxone 2 gm q24 - Start IV Vancomycin 1.2 gm dose followed by pharmacy assisted dosing. Target trough (10-20) - Consider aspiration of left knee supra-patellar swelling, send aspirate for gram stain and C/S - PICC line placement today - consider whole body tagged WBC scan to determine focal source of infection. If not feasible CT chest, abd, pelvis, left knee and MR imaging of spine could be considered will follow Bam Culp MD Infectious diseases
[2018-05-22] MEDS ORDERED: VANCOMYCIN PER PHARMACY IV SCH (12:10)
[2018-05-22 12:11] LABS: Band Neutrophils % 12 % (0-10); Lymphocytes % 6 % (15-49); Metamyelocytes % 4 % (0-0); Monocytes % (Manual) 5 % (1-12); Myelocytes % 4 % (0-0); Platelet Estimate INCREASED (NORMAL); RBC Morphology ABNORM (NORMAL); Segmented Neutrophils % 69 % (38-78); Toxic Granulation 1+ (NONE SEEN)
[2018-05-22] MEDS ORDERED: VANCOMYCIN 1,250 MG in 0.9 % SODIUM CHLORIDE 500 ML IV SCH (13:00)
--- NOTE | 2018-05-22 13:56 | Orthopedic Progress Note ---
Subjective Patient information: Note initiated : 05/22/18 at 1:53 pm Service Date, if different from initiated Date: [] Patient: Solitario Sandoval 72 y/o M admitted on 05/15/18 for weakness. Chief Complaint: [] Principal diagnosis: Left septic knee Interval history: contacted by Hospitalist for opinion regarding left knee as white count is increasing again. Patient reports he is able to ambulate the hallway x2 today but is painful. Also, has pain with ROM. Does think that the swelling is better than prior. Objective Vital signs: Vital Signs Temp Pulse Resp BP BP Pulse Ox 05/22/18 11:45 97.8 F 88 16 133/70 92 05/22/18 08:00 97.2 F 90 16 113/75 93 05/22/18 03:40 97.8 F 84 16 143/79 93 05/22/18 00:00 98.7 F 80 16 124/72 94 05/21/18 20:00 99.3 F H 98 H 18 149/78 92 05/21/18 16:00 98.5 F 87 16 140/78 93 05/21/18 15:13 99.1 F H 95 H 20 141/77 93 Intake and Output 05/21/18 05/22/18 05/22/18 21:59 05:59 13:59 Intake Total 240 475 650 Output Total 350 150 400 Balance -110 325 250 Intake: IV 50 Rocephin 2 gm In Dextrose 5% in 50 Water 50 ml @ 100 mls/hr IV DAILY [facility] Rx#:[id number] Oral 240 475 600 Output: Void Amount 350 150 400 Other: Meal Dinner Percent of Meal Consumed 10% Feeding Ability Independent Urine Appearance Clear Clear Clear Urine Color Bright Yellow Bright Yellow Bright Yellow Urine Odor Normal Normal # Voids 200 1 Weight 140 lb 8 oz Intake & Output: Intake & Output 05/21/18 05/22/18 05/22/18 21:59 05:59 13:59 Intake Total 240 475 650 Output Total 350 150 400 Balance -110 325 250 Weight 140 lb 8 oz Intake: IV 50 Rocephin 2 gm In Dextrose 5% in 50 Water 50 ml @ 100 mls/hr IV DAILY [facility] Rx#:[id number] Oral 240 475 600 Output: Void Amount 350 150 400 Other: Meal Dinner Percent of Meal Consumed 10% Feeding Ability Independent Urine Appearance Clear Clear Clear Urine Color Bright Yellow Bright Yellow Bright Yellow Urine Odor Normal Normal # Voids 200 1 Incision: Yes healing Incision clean and dry: Yes Dressing: Yes intact Range of motion: passive motion 0-80 degrees relatively painfree. No hyper extension Additional Comments: resting position is slightly flexed. Does have positive joint effusion, no erythema or redness about the knee/leg/ankle. - Labs CBC & BMP: 05/22/18 11:08 05/22/18 08:27 Labs: 05/22/18 05/22/18 05/21/18 11:08 08:27 13:20 Hgb 10.9 L 11.4 L 10.8 L Hct 33.3 L 35.0 L 32.7 L 05/20/18 05/19/18 05/18/18 04:36 04:17 04:15 Hgb 10.8 L 10.3 L 10.3 L Hct 32.8 L 31.2 L 30.8 L 05/17/18 05/16/18 05/15/18 04:30 04:02 19:41 Hgb 10.2 L 9.9 L 11.9 L Hct 30.4 L 29.4 L 36.0 L Assessment and Plan - Narrative A/P Narrative: POD 5 from left knee arthroscopic knee I&D for septic knee. White count trending up again without other source at this point after initial decrease several days prior. Discussed with Hospitalist who does think it is looking better with regards to swelling and function. I do not have a prior exam to compare to; however, he is ambulating the hallways with ROM 0-80 degrees. The joint effusion is expected after an arthroscopy procedure but do worry about continued infection. I will defer repeat aspiration given the clinical exam at this time. They are pending tagged WBC scan. If no other source, change in exam, patient reports worsening symptoms would reconsider. Relayed information to hospitalist as well.
--- NOTE | 2018-05-22 14:14 | XRay Report ---
INDICATION: PICC line placement TECHNIQUE: AP chest x-ray,portable semiupright COMPARISON: Previous chest x-ray dated 05/15/2018 FINDINGS:Status post left PICC line placement. PICC line is in the superior vena cava. Interval development of left lower lobe consolidation and left pleural effusion. This is a new finding since prior study. Right lung is negative. Heart size and vascularity are normal. IMPRESSION: 1. Left-sided PICC line in the superior vena cava 2. Left basilar consolidation and left pleural effusion. Findings are new since 05/15/2018 Interpreted and Authenticated by: Ramon Nelson 05/22/18
--- NOTE | 2018-05-22 15:57 | Ultrasound Report ---
CLINICAL INFORMATION: Left pleural effusion TECHNIQUE: Informed consent was obtained. Discussed the procedure as well as potential risks and complications including risk of pneumothorax. Patient understood and consented. Left pleural effusion was localized with ultrasound. Routine ChloraPrep skin cleansing. A 6 [place] safe T centesis set was utilized. 500 mL cloudy pleural fluid was removed. Fluid was sent to the laboratory for analysis. No immediate complications. Chest x-ray is pending IMPRESSION: 1. Ultrasound-guided left thoracentesis 2. 500 mL cloudy fluid removed Interpreted and Authenticated by: Ramon Nelson 05/22/18
--- NOTE | 2018-05-22 16:02 | XRay Report ---
INDICATION: Status post left thoracentesis TECHNIQUE: AP chest x-ray,portable upright COMPARISON: Prethoracentesis chest x-ray dated 05/22/2018 FINDINGS:Status post left thoracentesis. 500 mL cloudy yellow - brown fluid removed. There is no postthoracentesis pneumothorax. Left pleural fluid is decreased. There is left basilar parenchymal infiltrate consistent with pneumonia. Right lung is negative IMPRESSION: No post thoracentesis pneumothorax Interpreted and Authenticated by: Ramon Nelson 05/22/18
[2018-05-22 16:57] LABS: Glucose,Pleural Fluid 296 mg/dL
[2018-05-22 17:30] LABS: Appearance,Pleural Fluid HAZY; Color,Pleural Fluid PALE YELLOW; Lymphocytes,Pleural Fluid 4 %; Neutrophils,Pleural Fluid 81 %; Nucleated Cells,Pleural Fld 7625 /cumm; RBC,Pleural Fluid < 50000 /cumm
[2018-05-22 17:33] LABS: pH,Body Fluid 7.48
[2018-05-22] MEDS: LISINOPRIL 20 MG TABLET PO SCH (21:38)
[2018-05-23 05:51] LABS: Mean Cell Volume 98.3 fL (80.0-100.0); Mean Corpuscular HGB Conc 33.2 g/dL (31.0-36.0); Platelet Count 689 K/mcL (140-440); RBC 2.85 M/mcL (4.50-5.90); Red Cell Distribution Width 13.6 % (11.5-14.5)
[2018-05-23 06:05] LABS: ALT/SGPT 11 U/l (0-40); Albumin 2.1 gm/dL (3.2-5.2); Albumin/Globulin Ratio 0.6 (1.0-2.3); Alkaline Phosphatase 86 U/L (39-117); Bilirubin,Direct < 0.2 mg/dL (0.0-0.3); Blood Urea Nitrogen 14 mg/dl (8-23); Gamma Glutamyl Transpeptidase 27 U/L (8-61)
[2018-05-23 07:28] LABS: Lymphocytes % 6 % (15-49); Monocytes % (Manual) 10 % (1-12); Myelocytes % 1 % (0-0); Platelet Estimate INCREASED (NORMAL); RBC Morphology NORMAL (NORMAL); Segmented Neutrophils % 83 % (38-78); Toxic Granulation 1+ (NONE SEEN)
[2018-05-23] MEDS: INSULIN LISPRO 1 UNIT/0.01 ML UNIT SQ SCH ×4 (08:00→22:27)
[2018-05-23] MEDS ORDERED: cefTRIAXone 2 GM VIAL ONE (09:13)
[2018-05-23] MEDS: cefTRIAXone 2 GM in DEXTROSE 5% IN WATER 50 ML IV SCH (09:20)
[2018-05-23] MEDS: 0.9 % SODIUM CHLORIDE 10 ML SYRINGE IV SCH ×2 (09:25→22:54)
[2018-05-23] MEDS: amLODIPine 10 MG TABLET PO SCH (09:30)
[2018-05-23] MEDS: ENOXAPARIN 40 MG/0.4 ML SYRINGE SQ SCH (09:30)
--- NOTE | 2018-05-23 10:10 | Infectious Disease Prog Note ---
Subjective Patient information: Note initiated : 05/23/18 at 10:05 am Service Date, if different from initiated Date: [] Patient: Solitario Sandoval 72 y/o M admitted on 05/15/18 for weakness. Chief Complaint: [] Principal diagnosis: Left septic knee Interval history: Patient is doing well overall. He denies any fever, chills, nausea, vomiting, diarrhea. He endorses fullness in his left knee. Denies any shortness of breath or left-sided chest pain. Is okay with waiting until tomorrow to ensure that white cell count continues to down trend towards normal. He had a PICC line placed in his left arm. Objective Objective Narrative: ao x 3, in nad no thrush chest cta s1 s2 normal bs ++ nttd left knee with mild non tender supra-patellar swelling Left arm PICC line No peripheral edema Right foot: Redness is resolving compared to yesterday. Still present in a small area - Vital Signs Vital signs: Vital Signs Temp Pulse Resp BP Pulse Ox 05/23/18 08:21 36.9 C 98 H 20 125/75 92 05/23/18 03:50 37.5 C H 87 16 130/75 92 05/22/18 23:35 37.2 C 87 20 116/67 93 05/22/18 19:23 37.4 C H 100 H 18 129/83 91 05/22/18 19:00 91 05/22/18 16:00 36.6 C 90 16 133/77 92 05/22/18 11:45 36.6 C 88 16 133/70 92 Intake and Output 05/22/18 05/23/18 05/23/18 21:59 05:59 13:59 Intake Total 500 800 Output Total 250 100 125 Balance 250 700 -125 Intake: IV 500 Vancomycin 1,250 mg In Sodium 500 Chloride 0.9% 500 ml @ 333.3 mls/hr IV Q24H [facility] Rx#: [id number] Oral 800 Output: Void Amount 250 100 125 Other: Meal Dinner Percent of Meal Consumed 50% Feeding Ability Independent Urine Appearance Clear Clear Urine Color Bright Yellow Bright Yellow # Voids 1 Weight 63.645 kg Intake & Output: Intake & Output 05/22/18 05/23/18 05/23/18 21:59 05:59 13:59 Intake Total 500 800 Output Total 250 100 125 Balance 250 700 -125 Weight 63.645 kg Intake: IV 500 Vancomycin 1,250 mg In Sodium 500 Chloride 0.9% 500 ml @ 333.3 mls/hr IV Q24H [facility] Rx#: [id number] Oral 800 Output: Void Amount 250 100 125 Other: Meal Dinner Percent of Meal Consumed 50% Feeding Ability Independent Urine Appearance Clear Clear Urine Color Bright Yellow Bright Yellow # Voids 1 - Lab 05/23/18 04:50 05/23/18 04:50 Most recent lab results Calcium 8.2 mg/dl (8.6-10.4) L 05/23/18 04:50 Phosphorus 2.7 mg/dL (2.7-4.5) 05/23/18 04:50 Magnesium 1.9 mg/dL (1.6-2.5) 05/23/18 04:50 Microbiology 05/22/18 15:00 Pleural Fluid Gram Stain - Final 05/22/18 15:00 Pleural Fluid Gram Stain - Final 05/22/18 15:00 Pleural Fluid Body Fluid Culture - Preliminary 05/19/18 08:55 Blood Blood Culture - Preliminary 05/19/18 09:08 Blood Blood Culture - Preliminary 05/17/18 04:25 Blood Blood Culture - Final 05/17/18 04:30 Blood Blood Culture - Final 05/17/18 12:39 Aspirate - Knee Gram Stain - Final 05/17/18 12:39 Aspirate - Knee Body Fluid Culture - Final 05/17/18 12:16 Aspirate - Knee Gram Stain - Final 05/17/18 12:16 Aspirate - Knee Anaerobic Culture - Preliminary 05/15/18 20:55 Blood Blood Culture - Final Streptococcus pneumoniae 05/15/18 20:50 Blood Blood Culture - Preliminary Gram positive cocci Medications Active Medications: Acetaminophen (Tylenol) 650 mg PO Q6HP PRN PRN Reason: PAIN/FEVER > 101 Hydrocodone Bitart/Acetaminophen ([place] 5/325mg) 1 tab PO Q4HP PRN PRN Reason: PAIN LEVEL 3-6 Last Admin: 05/22/18 03:52 Dose: 1 tab Documented by: Admin: 05/21/18 21:23 Dose: 1 tab Documented by: DELLA Amlodipine Besylate (Norvasc) 10 mg PO DAILY [facility] Last Admin: 05/23/18 09:30 Dose: 10 mg Documented by: KELLY Kingigned by: AFSHIN Admin: 05/22/18 08:55 Dose: 10 mg Documented by: Admin: 05/21/18 08:43 Dose: 10 mg Documented by: BRIELLE Cosigned by: MARLIN Admin: 05/20/18 09:36 Dose: 10 mg Documented by: SHIRLEY Cosigned by: MARLIN Admin: 05/19/18 07:59 Dose: 10 mg Documented by: [id number] Admin: 05/18/18 08:52 Dose: 10 mg Documented by: [email or web address] Admin: 05/17/18 08:14 Dose: 10 mg Documented by: RUBENS Dextrose (Dextrose 50%) 0 ml IV UD PRN PRN Reason: Hypoglycemia Diagnostic Test (Pha) (Accu-Chek) 1 each FS ACHS [facility] Last Admin: 05/23/18 07:35 Dose: 1 each Documented by: Admin: 05/22/18 20:48 Dose: 1 each Documented by: FREDI Cosigned by: JONO Admin: 05/22/18 17:06 Dose: 1 each Documented by: Admin: 05/22/18 11:51 Dose: 1 each Documented by: Admin: 05/22/18 07:32 Dose: 1 each Documented by: Admin: 05/21/18 20:55 Dose: 1 each Documented by: Admin: 05/21/18 18:05 Dose: 1 each Documented by: Admin: 05/21/18 11:06 Dose: 1 each Documented by: BRIELLE Cosigned by: LE Admin: 05/21/18 07:50 Dose: 1 each Documented by: BRIELLE Kingigned by: MARLIN Admin: 05/20/18 20:40 Dose: 1 each Documented by: Admin: 05/20/18 17:11 Dose: 1 each Documented by: Admin: 05/20/18 11:55 Dose: 1 each Documented by: SHIRLEY Cosigned by: MARLIN Admin: 05/20/18 08:00 Dose: 1 each Documented by: Admin: 05/19/18 22:02 Dose: 1 each Documented by: Admin: 05/19/18 18:08 Dose: 1 each Documented by: [email or web address] Admin: 05/19/18 11:09 Dose: 1 each Documented by: [id number] Admin: 05/19/18 07:17 Dose: 1 each Documented by: [email or web address] Admin: 05/18/18 21:18 Dose: 1 each Documented by: [email or web address] Admin: 05/18/18 16:58 Dose: 1 each Documented by: Admin: 05/18/18 13:53 Dose: 1 each Documented by: Admin: 05/18/18 11:23 Dose: 1 each Documented by: Admin: 05/18/18 08:55 Dose: 1 each Documented by: Admin: 05/17/18 21:31 Dose: 1 each Documented by: Admin: 05/17/18 17:33 Dose: 1 each Documented by: Admin: 05/17/18 13:19 Dose: 1 each Documented by: Admin: 05/17/18 07:42 Dose: 1 each Documented by: Admin: 05/16/18 20:19 Dose: 1 each Documented by: Admin: 05/16/18 17:00 Dose: 1 each Documented by: Admin: 05/16/18 12:22 Dose: 1 each Documented by: Admin: 05/16/18 07:33 Dose: 1 each Documented by: ARIAN Enoxaparin Sodium (Lovenox) 40 mg SQ DAILY [facility] Admin: 05/23/18 09:30 Dose: 40 mg Documented by: KELLY Cosigned by: AFSHIN Admin: 05/22/18 08:55 Dose: 40 mg Documented by: Admin: 05/21/18 08:43 Dose: 40 mg Documented by: BRIELLE Cosigned by: MARLIN Admin: 05/20/18 09:31 Dose: 40 mg Documented by: SHIRLEY Cosigned by: MARLIN Glucose (Insta-Glucose) 15 gm PO PRN PRN PRN Reason: Hypoglycemia Heparin Sodium (Porcine) (Heparin Flush) 2 ml IV Q12 [facility] Last Admin: 05/23/18 09:20 Dose: 2 ml Documented by: Admin: 05/22/18 21:21 Dose: 2 ml Documented by: Admin: 05/22/18 08:55 Dose: Not Given Documented by: BUSHRA Non-Admin Reason: no PICC Admin: 05/21/18 20:55 Dose: Not Given Documented by: DELLA Non-Admin Reason: no PICC Acetaminophen (Ofirmev) 650 mg in 65 mls @ 130 mls/hr IV Q6HP PRN PRN Reason: PAIN/FEVER > 101 Ceftriaxone Sodium 2 gm/ (Dextrose) 50 mls @ 100 mls/hr IV DAILY [facility] Last Admin: 05/23/18 09:20 Dose: 100 mls/hr Documented by: Infusion: 05/22/18 09:25 Dose: 0 mls/hr Documented by: Admin: 05/22/18 08:55 Dose: 100 mls/hr Documented by: BUSHRA Insulin Human Lispro (Humalog) 0 unit SQ ACHS [facility]; Protocol Last Admin: 05/23/18 08:00 Dose: 4 units Documented by: KELLY Cosigned by: AFSHIN Admin: 05/22/18 21:33 Dose: 6 units Documented by: FREDI Cosigned by: JONO Admin: 05/22/18 17:07 Dose: 8 units Documented by: Admin: 05/22/18 11:51 Dose: 10 units Documented by: Admin: 05/22/18 07:34 Dose: 2 units Documented by: Admin: 05/21/18 20:55 Dose: 10 units Documented by: Admin: 05/21/18 17:21 Dose: 10 units Documented by: Admin: 05/21/18 11:38 Dose: 8 units Documented by: BRIELLE Cosigned by: MARLIN Admin: 05/21/18 09:19 Dose: Not Given Documented by: LE Non-Admin Reason: No Coverage Needed Admin: 05/20/18 20:45 Dose: 6 units Documented by: Admin: 05/20/18 17:27 Dose: 4 units Documented by: Admin: 05/20/18 11:55 Dose: 6 units Documented by: SHIRLEY Cosigned by: MARLIN Admin: 05/20/18 07:59 Dose: 2 units Documented by: Admin: 05/19/18 22:31 Dose: 6 units Documented by: Admin: 05/19/18 18:08 Dose: 4 units Documented by: [id number] Admin: 05/19/18 12:15 Dose: 6 units Documented by: [email or web address] Admin: 05/19/18 07:59 Dose: 2 units Documented by: [email or web address] Admin: 05/18/18 21:37 Dose: 6 units Documented by: Admin: 05/18/18 16:58 Dose: 8 units Documented by: Admin: 05/18/18 13:54 Dose: 8 units Documented by: Admin: 05/18/18 11:38 Dose: 14 units Documented by: Admin: 05/18/18 08:56 Dose: Not Given Documented by: LARA Non-Admin Reason: No Coverage Needed Admin: 05/17/18 21:31 Dose: 12 units Documented by: Admin: 05/17/18 17:34 Dose: 8 units Documented by: Admin: 05/17/18 15:32 Dose: Not Given Documented by: RUBENS Non-Admin Reason: NPO and going to surgery Admin: 05/17/18 08:15 Dose: 2 units Documented by: Admin: 05/16/18 20:20 Dose: 4 units Documented by: Admin: 05/16/18 16:59 Dose: 6 units Documented by: Admin: 05/16/18 12:30 Dose: 12 units Documented by: Admin: 05/16/18 07:41 Dose: 6 units Documented by: ARIAN Lisinopril (Zestril) 40 mg PO HS [facility] Last Admin: 05/22/18 21:38 Dose: 40 mg Documented by: FREDI Cosigned by: JONO Admin: 05/21/18 20:56 Dose: 40 mg Documented by: Admin: 05/20/18 20:38 Dose: 40 mg Documented by: Admin: 05/19/18 21:57 Dose: 40 mg Documented by: Admin: 05/18/18 21:07 Dose: 40 mg Documented by: QUINTON Comments: would not scan Ondansetron HCl (Zofran) 4 mg IV Q6HP PRN PRN Reason: Nausea And Vomiting Sodium Chloride (Saline Flush) 10 ml IV UD PRN PRN Reason: FLUSH Sodium Chloride (Saline Flush) 10 ml IV Q12 [facility] Last Admin: 05/23/18 09:25 Dose: 10 ml Documented by: Admin: 05/22/18 21:44 Dose: 10 ml Documented by: FREDI Cosigned by: JONO Admin: 05/22/18 08:55 Dose: 10 ml Documented by: Admin: 05/21/18 20:56 Dose: 10 ml Documented by: DELLA Assessment and Plan - Narrative A/P Narrative: A: 1. Strept pneumo bacteremia with subseq seeding of left knee joint causing [place] septic arthritis - likely source is right foot cellulitis - repeat blood Cx neg since 05/16 - s/p surgical I&D of left knee joint - severe infection leading to sepsis, no shock: now resolved 2. Left-sided pleural effusion: Status post drainage by IR with Gram stain and Cx negative so far, on LDH criteria seems exudative - doesnot meet criteria for empyema 3. Leucocytosis: Downtrending, 33k -----> 20k today - Procalcitonin elev at ~0.5 Possibly secondary to exudative pleural effusion which might have been seeded due to pneumococcal bacteremia Recommendations: - Continue IV Ceftriaxone 2 gm q24 thru left arm PICC line - Stop IV Vancomycin - Pt could be discharged home tomorrow if WBC continue to downtrend towards normal (<29060). -ID follow up scheduled for 06/12/18 at 10:30 am in ID clinic Follow up labs CBC, BMP weekly and ESR & CRP every other week Stop date of IV Ceftriaxone: 06/16/18 -- Pt was counseled about pneumococcal vaccination [Prevnar and Pneumovax], its benefits. Patient refused and mentions that he would reconsider it at the follow-up ID visit will sign off. Please call for any questions Bam Culp MD Infectious diseases
--- NOTE | 2018-05-23 12:00 | Internal Med Progress Note ---
Medical - PN: Subj Patient information: Note initiated : 05/23/18 at 11:57 am Service Date, if different from initiated Date: [] Patient: Solitario Sandoval a 72 y/o M admitted on 05/15/18 for weakness. Chief Complaint: [] Interval history: 05/15 Mr. Sandoval is a 72 year old M with a history of diabetes, hypertension, chronic kidney disease presents the ED for evaluation of swollen red right foot. Patient was in his usual state of health when on Saturday a.m. his right foot was swollen. It is not erythematous. It was not painful. A neighbor placed 8 activated charcoal poultice, which did seem to help the swelling. That continued until today, one somewhere overnight his foot became erythematous. It was noted this morning when his friend came to change the poultice. He noticed that there was pain with flexion his toes. The swelling was actually improved from when it was at its worst. Patient denies any fevers or chills. He's had mild encroachment of the erythema up the ankle this evening. Because of the erythema Lamar presents the ED for evaluation. In the emergency department, his white counts found to be 32,000. Lactate is 2.0. His temperature is 101, his pulse initially was 105-110 respiratory rate 22-23. He's of improved after fluids. He was cultured and received vancomycin. He's been admitted for further treatment of cellulitis and sepsis. Otherwise the patient denies headache, vision changes, sore throat. Said a mild cough for 1 day. No chest pain or tightness, no abdominal pain, nausea or vomiting, diarrhea. No history of stroke, no history of cardiac disease. No history of asthma emphysema, no history of hypothyroidism. He does have a history of kidney disease, follows with Dr. Koch. Dr. Arthur is his primary care physician. 05/16 Starting to feel a little better. Still with some edema on his feet. Blood cultures are now positive for gram-positive cocci in pairs and chains in both sets. Home medications clarified. 05/17-patient complains of excruciating pain left knee. On exam left knee is swollen and tender. Case discussed with Dr. Zarate orthopedics for effusion tap. Case discussed with infectious disease specialist in light of strep pneumo and blood cultures. Pending surveillance cultures. Echocardiogram performed await results. Antibiotics changed to cefazolin as per ID recommendations. patient will be kept n.p.o. as per orthopedic recommendations. 05/18-purulent joint aspirate left knee, cell count 63,900. Likely hematogenous septic arthritis. On antibiotic coverage. Status post joint washout/I&D. Surveillance cultures negative. White count persistent elevation at 26.3. Check baseline CRP and trend. ID consulted. PICC line in 24-48 hours if surveillance cultures negative 05/19-patient doing well. No overnight events. Cultures negative so far. ID recommends changing antibiotics to penicillin G. CT abdomen chest pelvis to rule out infectious etiology in light of worsening leukocytosis at 30,000 today. Otherwise clinically no change since previous day. Arthralgia myalgia improved. No fever chills. 05/20-patient doing well. No overnight events. Continuing penicillin G per ID. Possible discharge in 24 hours if surveillance cultures negative. Place PICC line. Will need outpatient echocardiogram. White count 17.5. Creatinine 1.2. 05/21-Patient doing well. No new events. Will undergo 28 days of IV antibiotics on Rocephin as per ID specialist. Will follow with ID clinic. Will undergo weekly CBC BMP as per ID and results will be faxed to ID clinic. Patient will be monitored by ID on discharge for antibiotic tailoring/further changes or escalations. Addendum-patient discharge was canceled due to white count up from 17-23. Stat echocardiogram ordered. PICC line could not be placed. 05/22-echocardiogram reveals persistent pericardial effusion. On antibiotics per ID recommendations. White count uptrending now at 28,000. However no fever. Short-lived pleuritic chest pain. Repeat white count 33,000. Await further recommendations from infectious disease specialist. Will likely need pericardiocentesis/further source evaluation. 05/23-white count down trending from $33,000-$20,000 post thoracentesis. Pleuritic chest pain improved. Continuing antibiotic coverage for Streptococcus pneumonia. ID specialist recommends Continuing outpatient Rocephin and possible discharge in 24 hours if WBC count continues to down trend. PICC line in place. - Constitutional Vitals: Vital Signs Temp Pulse Resp BP Pulse Ox 98.4 F 98 H 20 125/75 92 05/23/18 08:21 05/23/18 08:21 05/23/18 08:21 05/23/18 08:21 05/23/18 08:21 Period Temp Pulse Resp BP Sys/[place]is Pulse Ox Last 24 Hr 97.9 F-99.5 F 87-100 16-20 116-133/67-83 91-93 Intake and Output 05/22/18 05/23/18 05/23/18 21:59 05:59 13:59 Intake Total 500 800 Output Total 250 100 250 Balance 250 700 -250 Weight 140 lb 5 oz 139 lb Patient Weight 05/24/18 05:59 Weight 139 lb Intake & Output: Intake & Output 05/22/18 05/23/18 05/23/18 21:59 05:59 13:59 Intake Total 500 800 Output Total 250 100 250 Balance 250 700 -250 Weight 140 lb 5 oz 139 lb Intake: IV 500 Vancomycin 1,250 mg In Sodium 500 Chloride 0.9% 500 ml @ 333.3 mls/hr IV Q24H [facility] Rx#: [id number] Oral 800 Output: Void Amount 250 100 250 Other: Meal Dinner Percent of Meal Consumed 50% Feeding Ability Independent Urine Appearance Clear Clear Urine Color Bright Yellow Bright Yellow Bright Yellow Straw Urine Odor Normal # Voids 1 General appearance: cooperative, no acute distress Exam: Alert oriented Nonlabored breathing Nondistended abdomen left-sided PICC line Left knee swelling improved Right ankle pain and swelling resolved Medical - PN: Obj Da - Labs CBC & Chem 7: 05/23/18 04:50 05/23/18 04:50 Labs: Abnormal Lab Results 05/23/18 05/23/18 05/22/18 04:50 04:50 11:08 WBC 20.1 H 33.0 H* RBC 2.85 L 3.39 L Hgb 9.3 L 10.9 L Hct 28.0 L 33.3 L Plt Count 689 H 718 H MPV Gran % Lymph % (Auto) Gran # Lymph # (Auto) [place] # (Auto) Seg Neutrophils % 83 H Band Neutrophils % 12 H Lymphocytes % 6 L 6 L Metamyelocytes % 4 H Myelocytes % 1 H 4 H WBC Morphology Abnorm A Abnorm A Toxic Granulation 1+ A 1+ A Platelet Estimate Increased A Increased A RBC Morphology Abnorm A Polychromasia 1+ A Creatinine Glucose 135 H Calcium 8.2 L Lactate Dehydrogenase Total Protein 5.4 L Albumin 2.1 L Globulin Albumin/Globulin Ratio 0.6 L 05/22/18 05/22/18 05/21/18 08:27 08:27 13:20 WBC 28.8 H 23.3 H RBC 3.56 L 3.32 L Hgb 11.4 L 10.8 L Hct 35.0 L 32.7 L Plt Count 741 H 661 H MPV 7.3 L Gran % 88.5 H Lymph % (Auto) 4.9 L Gran # 25.5 H Lymph # (Auto) 1.4 L [place] # (Auto) 1.8 H Seg Neutrophils % 80 H Band Neutrophils % Lymphocytes % 8 L Metamyelocytes % 2 H Myelocytes % 2 H WBC Morphology Abnorm A Toxic Granulation 1+ A Platelet Estimate Increased A RBC Morphology Polychromasia Creatinine 1.4 H Glucose 185 H Calcium Lactate Dehydrogenase 255 H Total Protein Albumin 2.6 L Globulin 4.0 H Albumin/Globulin Ratio 0.7 L Meds: Medications Acetaminophen (Tylenol) 650 mg PO Q6HP PRN PRN Reason: PAIN/FEVER > 101 Hydrocodone Bitart/Acetaminophen ([place] 5/325mg) 1 tab PO Q4HP PRN PRN Reason: PAIN LEVEL 3-6 Last Admin: 05/22/18 03:52 Dose: 1 tab Documented by: Amlodipine Besylate (Norvasc) 10 mg PO DAILY [facility] Last Admin: 05/23/18 09:30 Dose: 10 mg Documented by: Dextrose (Dextrose 50%) 0 ml IV UD PRN PRN Reason: Hypoglycemia Diagnostic Test (Pha) (Accu-Chek) 1 each FS ACHS [facility] Last Admin: 05/23/18 07:35 Dose: 1 each Documented by: Enoxaparin Sodium (Lovenox) 40 mg SQ DAILY [facility] Last Admin: 05/23/18 09:30 Dose: 40 mg Documented by: Glucose (Insta-Glucose) 15 gm PO PRN PRN PRN Reason: Hypoglycemia Heparin Sodium (Porcine) (Heparin Flush) 2 ml IV Q12 [facility] Last Admin: 05/23/18 09:20 Dose: 2 ml Documented by: Acetaminophen (Ofirmev) 650 mg in 65 mls @ 130 mls/hr IV Q6HP PRN PRN Reason: PAIN/FEVER > 101 Ceftriaxone Sodium 2 gm/ (Dextrose) 50 mls @ 100 mls/hr IV DAILY [facility] Last Admin: 05/23/18 09:20 Dose: 100 mls/hr Documented by: Azithromycin 500 mg/ Dextrose 250 mls @ 250 mls/hr IV Q24H [facility] Stop: 05/25/18 13:59 Insulin Human Lispro (Humalog) 0 unit SQ ACHS [facility]; Protocol Last Admin: 05/23/18 08:00 Dose: 4 units Documented by: Lisinopril (Zestril) 40 mg PO HS [facility] Last Admin: 05/22/18 21:38 Dose: 40 mg Documented by: Ondansetron HCl (Zofran) 4 mg IV Q6HP PRN PRN Reason: Nausea And Vomiting Sodium Chloride (Saline Flush) 10 ml IV UD PRN PRN Reason: FLUSH Sodium Chloride (Saline Flush) 10 ml IV Q12 [facility] Last Admin: 05/23/18 09:25 Dose: 10 ml Documented by: Medical - PN: A/P - Time Spent With Patient Total time spent is greater than 50% in coordination of care (as documented) at patient's floor/unit and/or counseling patient: 15 - 24 minutes (1) Cellulitis Status: Acute Assessment and plan: 72-year-old male with diabetes mellitus, presenting with swelling of the right foot, associated with less than 24 hours now of erythema. Found to have significant leukocytosis, tachycardia and fever consistent with sepsis from cellulitis. * Severe sepsis with leukemoid reaction secondary to Streptococcus pneumonia- high probability of occult abscess in light of worsening leukocytosis. ID on board. White count 32,000-> 24,000-> 29.3->17.5 ->23->[id number]-> [id number]. Status post thoracentesis. * Strep pneumo bacteremia-surveillance cultures negative so far. On Rocephin per infectious disease specialist PICC line placed. * Parapneumonic effusion-exited by criteria. Cultures negative so far. 500 cc thoracentesis * Pericardial effusion-infectious disease specialist discussed case with cardiology. Per cardiology no indication for pericardiocentesis due to small effusion * Septic arthritis left knee status post joint aspiration/I&D washout by orthopedics. Drain removed by orthopedics. Clinically improving * Cellulitis of the right foot-clinically nearly resolved * Acute renal failure secondary to sepsis and end organ dysfunction-creatinine now at 1.2 much improved * Diabetes mellitus. Stable on SSI/CCD * Hypertension -continue antihypertensives * CODE STATUS: Full code * Prophylaxis: Lovenox Plan * Continue Rocephin per ID * Trend white count and if improved possible discharge in 24 hours Current Visit: Yes Medical - PN: Qual - Stroke Symptom Onset Unknown: No - VTE Deep Vein Thrombosis/Pulmonary Embolism Present on Admission: No
[2018-05-23] MEDS: AZITHROMYCIN 500 MG in DEXTROSE 5% IN WATER 250 ML IV SCH (12:36)
--- NOTE | 2018-05-23 15:12 | Internal Med Progress Note ---
Medical - PN: Subj Patient information: Note initiated : 05/23/18 at 3:10 pm Service Date, if different from initiated Date: [] Patient: Solitario Sandoval a 72 y/o M admitted on 05/15/18 for weakness. Chief Complaint: [] Interval history: 05/15 Mr. Sandoval is a 72 year old M with a history of diabetes, hypertension, c hronic kidney disease presents the ED for evaluation of swollen red right foot. Patient was in his usual state of health when on Saturday a.m. his right foot was swollen. It is not erythematous. It was not painful. A neighbor placed 8 activated charcoal poultice, which did seem to help the swelling. That continued until today, one somewhere overnight his foot became erythematous. It was noted this morning when his friend came to change the poultice. He noticed that there was pain with flexion his toes. The swelling was actually improved from when it was at its worst. Patient denies any fevers or chills. He's had mild encroachment of the erythema up the ankle this evening. Because of the erythema Lamar presents the ED for evaluation. In the emergency department, his white counts found to be 32,000. Lactate is 2.0. His temperature is 101, his pulse initially was 105-110 respiratory rate 22-23. He's of improved after fluids. He was cultured and received vancomycin. He's been admitted for further treatment of cellulitis and sepsis. Otherwise the patient denies headache, vision changes, sore throat. Said a mild cough for 1 day. No chest pain or tightness, no abdominal pain, nausea or vomiting, diarrhea. No history of stroke, no history of cardiac disease. No history of asthma emphysema, no history of hypothyroidism. He does have a history of kidney disease, follows with Dr. Koch. Dr. Arthur is his primary care physician. 05/16 Starting to feel a little better. Still with some edema on his feet. Blood cultures are now positive for gram-positive cocci in pairs and chains in both sets. Home medications clarified. 05/17-patient complains of excruciating pain left knee. On exam left knee is swollen and tender. Case discussed with Dr. Zarate orthopedics for effusion tap. Case discussed with infectious disease specialist in light of strep pneumo and blood cultures. Pending surveillance cultures. Echocardiogram performed await results. Antibiotics changed to cefazolin as per ID recommendations. patient will be kept n.p.o. as per orthopedic recommendations. 05/18-purulent joint aspirate left knee, cell count 63,900. Likely hematogenous septic arthritis. On antibiotic coverage. Status post joint washout/I&D. Surveillance cultures negative. White count persistent elevation at 26.3. Check baseline CRP and trend. ID consulted. PICC line in 24-48 hours if surveillance cultures negative 05/19-patient doing well. No overnight events. Cultures negative so far. ID recommends changing antibiotics to penicillin G. CT abdomen chest pelvis to rule out infectious etiology in light of worsening leukocytosis at 30,000 today. Otherwise clinically no change since previous day. Arthralgia myalgia improved. No fever chills. 05/20-patient doing well. No overnight events. Continuing penicillin G per ID. Possible discharge in 24 hours if surveillance cultures negative. Place PICC line. Will need outpatient echocardiogram. White count 17.5. Creatinine 1.2. 05/21-Patient doing well. No new events. Will undergo 28 days of IV antibiotics on Rocephin as per ID specialist. Will follow with ID clinic. Will undergo weekly CBC BMP as per ID and results will be faxed to ID clinic. Patient will be monitored by ID on discharge for antibiotic tailoring/further changes or escalations. Addendum-patient discharge was canceled due to white count up from 17-23. Stat echocardiogram ordered. PICC line could not be placed. 05/22-echocardiogram reveals persistent pericardial effusion. On antibiotics per ID recommendations. White count uptrending now at 28,000. However no fever. Short-lived pleuritic chest pain. Repeat white count 33,000. Await further recommendations from infectious disease specialist. Will likely need pericardiocentesis/further source evaluation. 05/23-white count down trending from $33,000-$20,000 post thoracentesis. Pleuritic chest pain improved. Continuing antibiotic coverage for Streptococcus pneumonia. ID specialist recommends Continuing outpatient Rocephin and possible discharge in 24 hours if WBC count continues to down trend. PICC line in place. 05/24 - Constitutional Vitals: Vital Signs Temp Pulse Resp BP Pulse Ox 98.4 F 98 H 20 128/76 92 05/23/18 12:11 05/23/18 12:11 05/23/18 12:11 05/23/18 12:11 05/23/18 12:11 Period Temp Pulse Resp BP Sys/Landis Pulse Ox Last 24 Hr 97.9 F-99.5 F 87-100 16-20 116-133/67-83 91-93 Intake and Output 05/23/18 05/23/18 05/23/18 05:59 13:59 21:59 Intake Total 800 Output Total 100 350 100 Balance 700 -350 -100 Weight 63.049 kg Patient Weight 05/24/18 05:59 Weight 63.049 kg Intake & Output: Intake & Output 05/23/18 05/23/18 05/23/18 05:59 13:59 21:59 Intake Total 800 Output Total 100 350 100 Balance 700 -350 -100 Weight 63.049 kg Intake: Oral 800 Output: Void Amount 100 350 100 # of times incontinent of urine 0 Other: Urine Appearance Clear Urine Color Bright Yellow Bright Yellow Straw Urine Odor Normal Stool Size Smear Stool Color Brown Yellow Stool Consistency Soft Liquid # Voids 1 1 # Bowel Movements 1 # of times incontinent of 0 Bowels Medical - PN: Obj Da - Labs CBC & Chem 7: 05/24/18 04:30 05/24/18 04:30 Labs: Abnormal Lab Results 05/23/18 05/23/18 05/22/18 04:50 04:50 11:08 WBC 20.1 H 33.0 H* RBC 2.85 L 3.39 L Hgb 9.3 L 10.9 L Hct 28.0 L 33.3 L Plt Count 689 H 718 H MPV Gran % Lymph % (Auto) Gran # Lymph # (Auto) Ponce # (Auto) Seg Neutrophils % 83 H Band Neutrophils % 12 H Lymphocytes % 6 L 6 L Metamyelocytes % 4 H Myelocytes % 1 H 4 H WBC Morphology Abnorm A Abnorm A Toxic Granulation 1+ A 1+ A Platelet Estimate Increased A Increased A RBC Morphology Abnorm A Polychromasia 1+ A Creatinine Glucose 135 H Calcium 8.2 L Lactate Dehydrogenase Total Protein 5.4 L Albumin 2.1 L Globulin Albumin/Globulin Ratio 0.6 L 05/22/18 05/22/18 05/21/18 08:27 08:27 13:20 WBC 28.8 H 23.3 H RBC 3.56 L 3.32 L Hgb 11.4 L 10.8 L Hct 35.0 L 32.7 L Plt Count 741 H 661 H MPV 7.3 L Gran % 88.5 H Lymph % (Auto) 4.9 L Gran # 25.5 H Lymph # (Auto) 1.4 L Ponce # (Auto) 1.8 H Seg Neutrophils % 80 H Band Neutrophils % Lymphocytes % 8 L Metamyelocytes % 2 H Myelocytes % 2 H WBC Morphology Abnorm A Toxic Granulation 1+ A Platelet Estimate Increased A RBC Morphology Polychromasia Creatinine 1.4 H Glucose 185 H Calcium Lactate Dehydrogenase 255 H Total Protein Albumin 2.6 L Globulin 4.0 H Albumin/Globulin Ratio 0.7 L Meds: Medications Acetaminophen (Tylenol) 650 mg PO Q6HP PRN PRN Reason: PAIN/FEVER > 101 Hydrocodone Bitart/Acetaminophen ([place] 5/325mg) 1 tab PO Q4HP PRN PRN Reason: PAIN LEVEL 3-6 Last Admin: 05/22/18 03:52 Dose: 1 tab Documented by: Amlodipine Besylate (Norvasc) 10 mg PO DAILY [facility] Last Admin: 05/23/18 09:30 Dose: 10 mg Documented by: Dextrose (Dextrose 50%) 0 ml IV UD PRN PRN Reason: Hypoglycemia Diagnostic Test (Pha) (Accu-Chek) 1 each FS ACHS [facility] Last Admin: 05/23/18 11:57 Dose: 1 each Documented by: Enoxaparin Sodium (Lovenox) 40 mg SQ DAILY [facility] Last Admin: 05/23/18 09:30 Dose: 40 mg Documented by: Glucose (Insta-Glucose) 15 gm PO PRN PRN PRN Reason: Hypoglycemia Heparin Sodium (Porcine) (Heparin Flush) 2 ml IV Q12 [facility] Last Admin: 05/23/18 09:20 Dose: 2 ml Documented by: Acetaminophen (Ofirmev) 650 mg in 65 mls @ 130 mls/hr IV Q6HP PRN PRN Reason: PAIN/FEVER > 101 Ceftriaxone Sodium 2 gm/ (Dextrose) 50 mls @ 100 mls/hr IV DAILY [facility] Last Admin: 05/23/18 09:20 Dose: 100 mls/hr Documented by: Azithromycin 500 mg/ Dextrose 250 mls @ 250 mls/hr IV Q24H [facility] Stop: 05/25/18 13:59 Last Admin: 05/23/18 12:36 Dose: 250 mls/hr Documented by: Insulin Human Lispro (Humalog) 0 unit SQ ACHS [facility]; Protocol Last Admin: 05/23/18 12:34 Dose: 6 units Documented by: Lisinopril (Zestril) 40 mg PO HS [facility] Last Admin: 05/22/18 21:38 Dose: 40 mg Documented by: Ondansetron HCl (Zofran) 4 mg IV Q6HP PRN PRN Reason: Nausea And Vomiting Sodium Chloride (Saline Flush) 10 ml IV UD PRN PRN Reason: FLUSH Sodium Chloride (Saline Flush) 10 ml IV Q12 [facility] Last Admin: 05/23/18 09:25 Dose: 10 ml Documented by: Medical - PN: A/P - Time Spent With Patient Total time spent is greater than 50% in coordination of care (as documented) at patient's floor/unit and/or counseling patient: - Narrative A/P Narrative: A: * Severe sepsis with leukemoid reaction secondary to Streptococcus pneumonia- high probability of occult abscess in light of worsening leukocytosis. ID on board. White count 32,000-> 24,000-> 29.3->17.5 ->23->91554-> 01025. Status post thoracentesis. * Strep pneumo bacteremia-surveillance cultures negative so far. On Rocephin per infectious disease specialist PICC line placed. * Parapneumonic effusion-exited by criteria. Cultures negative so far. 500 cc thoracentesis * Pericardial effusion-infectious disease specialist discussed case with cardiology. Per cardiology no indication for pericardiocentesis due to small effusion * Septic arthritis left knee status post joint aspiration/I&D washout by orthopedics. Drain removed by orthopedics. Clinically improving * Cellulitis of the right foot-clinically nearly resolved * Acute renal failure secondary to sepsis and end organ dysfunction-creatinine now at 1.2 much improved * Diabetes mellitus. Stable on SSI/CCD * Hypertension -continue antihypertensives Plan: * Continue Rocephin per ID * Trend white count and if improved possible discharge in 24 hours * Prophylaxis: Lovenox CODE STATUS: Full code Medical - PN: Qual - Stroke Symptom Onset Unknown: No - VTE Deep Vein Thrombosis/Pulmonary Embolism Present on Admission: No
--- NOTE | 2018-05-23 15:15 | Discharge Summary ---
Medical - DS: Prov Patient information: Note initiated : 05/23/18 at 3:13 pm Service Date, if different from initiated Date: [] Patient: Solitario Sandoval 72 y/o M admitted on 05/15/18 for weakness. Chief Complaint: [] Date of admission: 05/15/18 23:45 Discharge date: 05/24/18 Primary care physician: Nate Arthur Consults: 05/15/18 Consult to Physician [CONS] Stat Comment: Consulting Provider: Evelyne Hughes Reason For Exam: Physician to Consult 05/19/18 08:32 Consult to Physician [CONS] Routine Comment: Consulting Provider: Bam Culp Reason For Exam: Physician to Consult Medical - DS: Meds - Discharge Medications Prescriptions: cefTRIAXone NA/DEXTROSE,ISO [Ceftriaxone 2 gm Piggyback] 2 gm IV DAILY 28 Days #28 ml Active and Home Medications: Home Medications Benazepril HCl 40 mg PO DAILY@1700 05/16/18 [History Confirmed 05/17/18 Last Taken Unknown] amLODIPine BESYLATE [Amlodipine Besylate] 10 mg PO DAILY 05/16/18 [History Confirmed 05/16/18 Last Taken Unknown] Acetaminophen [Tylenol] 650 mg PO Q6HP PRN tab 05/21/18 [Rx Last Taken Unknown] cefTRIAXone NA/DEXTROSE,ISO [Ceftriaxone 2 gm Piggyback] 2 gm IV DAILY 28 Days #28 ml 05/21/18 [Rx Last Taken Unknown] Medical - DS: Hosp Hospital course: Mr. Sandoval is a 72 year old M 05/15 Mr. Sandoval is a 72 year old M with a history of diabetes, hypertension, chronic kidney disease presents the ED for evaluation of swollen red right foot. Patient was in his usual state of health when on Saturday a.m. his right foot was swollen. It is not erythematous. It was not painful. A neighbor placed 8 activated charcoal poultice, which did seem to help the swelling. That continued until today, one somewhere overnight his foot became erythematous. It was noted this morning when his friend came to change the poultice. He noticed that there was pain with flexion his toes. The swelling was actually improved from when it was at its worst. Patient denies any fevers or chills. He's had mild encroachment of the erythema up the ankle this evening. Because of the erythema Lamar presents the ED for evaluation. In the emergency department, his white counts found to be 32,000. Lactate is 2.0. His temperature is 101, his pulse initially was 105-110 respiratory rate 22-23. He's of improved after fluids. He was cultured and received vancomycin. He's been admitted for further treatment of cellulitis and sepsis. Otherwise the patient denies headache, vision changes, sore throat. Said a mild cough for 1 day. No chest pain or tightness, no abdominal pain, nausea or vomiting, diarrhea. No history of stroke, no history of cardiac disease. No history of asthma emphysema, no history of hypothyroidism. He does have a history of kidney disease, follows with Dr. Koch. Dr. Arthur is his primary care physician. 05/16 Starting to feel a little better. Still with some edema on his feet. Blood cultures are now positive for gram-positive cocci in pairs and chains in both sets. Home medications clarified. 05/17-patient complains of excruciating pain left knee. On exam left knee is swollen and tender. Case discussed with Dr. Zarate orthopedics for effusion tap. Case discussed with infectious disease specialist in light of strep pneumo and blood cultures. Pending surveillance cultures. Echocardiogram performed await results. Antibiotics changed to cefazolin as per ID recommendations. patient will be kept n.p.o. as per orthopedic recommendations. 05/18-purulent joint aspirate left knee, cell count 63,900. Likely hematogenous septic arthritis. On antibiotic coverage. Status post joint washout/I&D. Surveillance cultures negative. White count persistent elevation at 26.3. Tasia ck baseline CRP and trend. ID consulted. PICC line in 24-48 hours if surveillance cultures negative 05/19-patient doing well. No overnight events. Cultures negative so far. ID recommends changing antibiotics to penicillin G. CT abdomen chest pelvis to rule out infectious etiology in light of worsening leukocytosis at 30,000 today. Otherwise clinically no change since previous day. Arthralgia myalgia improved. No fever chills. 05/20-patient doing well. No overnight events. Continuing penicillin G per ID. Possible discharge in 24 hours if surveillance cultures negative. Place PICC l ine. Will need outpatient echocardiogram. White count 17.5. Creatinine 1.2. 05/21-Patient doing well. No new events. Will undergo 28 days of IV antibiotics on Rocephin as per ID specialist. Will follow with ID clinic. Will undergo weekly CBC BMP as per ID and results will be faxed to ID clinic. Patient will be monitored by ID on discharge for antibiotic tailoring/further changes or escalations. Addendum-patient discharge was canceled due to white count up from 17-23. Stat echocardiogram ordered. PICC line could not be placed. 05/22-echocardiogram reveals persistent pericardial effusion. On antibiotics per ID recommendations. White count uptrending now at 28,000. However no fever. Short-lived pleuritic chest pain. Repeat white count 33,000. Await further recommendations from infectious disease specialist. Will likely need pericardiocentesis/further source evaluation. 05/23-white count down trending from $33,000-$20,000 post thoracentesis. Pleuritic chest pain improved. Continuing antibiotic coverage for Streptococcus pneumonia. ID specialist recommends Continuing outpatient Rocephin and possible discharge in 24 hours if WBC count continues to down trend. PICC line in place. Discharge diagnosis: Severe sepsis Streptococcus pneumonia strep pneumo bacteremia parapneumonic Secondary discharge diagnosis: Septic arthritis left knee cellulitis of the right foot acute renal failure diabetes hypertension - Time Spent with Patient Total time spent providing and/or coordinating discharge services: Medical - DS: Exam - Constitutional Vitals: Vital Signs Temp Pulse Resp BP Pulse Ox 05/23/18 12:11 98.4 F 98 H 20 128/76 92 05/23/18 08:21 98.4 F 98 H 20 125/75 92 05/23/18 03:50 99.5 F H 87 16 130/75 92 05/22/18 23:35 99.0 F 87 20 116/67 93 05/22/18 19:23 99.3 F H 100 H 18 129/83 91 05/22/18 19:00 91 05/22/18 16:00 97.9 F 90 16 133/77 92 Intake and Output 05/23/18 05/23/18 05/23/18 05:59 13:59 21:59 Intake Total 800 Output Total 100 350 100 Balance 700 -350 -100 Intake: Oral 800 Output: Void Amount 100 350 100 # of times incontinent of urine 0 Other: Urine Appearance Clear Urine Color Bright Yellow Bright Yellow Straw Urine Odor Normal Stool Size Smear Stool Color Brown Yellow Stool Consistency Soft Liquid # Voids 1 1 # Bowel Movements 1 # of times incontinent of 0 Bowels Weight 63.049 kg Patient Weight 05/24/18 05:59 Weight 63.049 kg Medical - DS: Data Labs on day of discharge: Labs from last 24 hours 05/23/18 05/23/18 05/22/18 04:50 04:50 15:00 WBC 20.1 H RBC 2.85 L Hgb 9.3 L Hct 28.0 L MCV 98.3 MCH 32.6 MCHC 33.2 RDW 13.6 Plt Count 689 H MPV 7.7 Total Counted 100 Seg Neutrophils % 83 H Band Neutrophils % Not Reportable Lymphocytes % 6 L Monocytes % (Manual) 10 Myelocytes % 1 H WBC Morphology Abnorm A Toxic Granulation 1+ A Platelet Estimate Increased A RBC Morphology Normal Sodium 135 Potassium 3.8 Chloride 103 Carbon Dioxide 24 Anion Gap 8.0 BUN 14 Creatinine 1.2 GFR Calculation 59 Glucose 135 H Uric Acid 5.0 Calcium 8.2 L Phosphorus 2.7 Magnesium 1.9 Total Bilirubin 0.3 Direct Bilirubin < 0.2 GGT 27 AST 17 ALT 11 Alkaline Phosphatase 86 Lactate Dehydrogenase 192 Total Protein 5.4 L Albumin 2.1 L Globulin 3.3 Albumin/Globulin Ratio 0.6 L Triglycerides 97 Fluid pH Fluid Total Protein Fluid LDH Pleural Fluid Source Pleural Color Pleural Appearance Pleural RBC Pleural Tot Cell Ct Pleural Nuc Cells Pleural Neutrophils Pleural Lymphocytes Pleural Plasma Cells Pleural Macrophages Pleural Mesothelial Pleural Diff Comment Pleural Total Protein 3.0 Pleural LDH 439 Pleural Glucose 05/22/18 05/22/18 15:00 15:00 WBC RBC Hgb Hct MCV MCH MCHC RDW Plt Count MPV Total Counted Seg Neutrophils % Band Neutrophils % Lymphocytes % Monocytes % (Manual) Myelocytes % WBC Morphology Toxic Granulation Platelet Estimate RBC Morphology Sodium Potassium Chloride Carbon Dioxide Anion Gap BUN Creatinine GFR Calculation Glucose Uric Acid Calcium Phosphorus Magnesium Total Bilirubin Direct Bilirubin GGT AST ALT Alkaline Phosphatase Lactate Dehydrogenase Total Protein Albumin Globulin Albumin/Globulin Ratio Triglycerides Fluid pH 7.48 Fluid Total Protein TNP Fluid LDH TNP Pleural Fluid Source Pleural Pleural Color Pale yellow Pleural Appearance Hazy Pleural RBC < [address] 100 Pleural Nuc Cells 7625 Pleural Neutrophils 81 Pleural Lymphocytes 4 Pleural Plasma Cells Not Reportable Pleural Macrophages 15 Pleural Mesothelial Not Reportable Pleural Diff Comment Not Reportable Pleural Total Protein Pleural LDH Pleural Glucose 296 Preliminary micro results at discharge 05/19/18 08:55 Blood Culture - Preliminary Blood 05/19/18 09:08 Blood Culture - Preliminary Blood 05/22/18 15:00 Anaerobic Culture - Preliminary Pleural Fluid Body Fluid Culture - Preliminary 05/17/18 12:16 Anaerobic Culture - Preliminary Aspirate - Knee 05/15/18 20:50 Blood Culture - Preliminary Blood Gram positive cocci Medical - DS: A/P - Patient/Caregiver Discharge Instructions Activity: increase activity as tolerated Diet: Consistent Carbohydrate Additional Instructions: Discharge Instructions: Strongly recommend follow-up with your Primary Care Physician in 5 days and weekly thereafter until completion of antibiotics. If any worsening symptoms noted in next 4 weeks with fever or shaking and/or chills, chest pain, shortness of breath patient required further evaluation of secondary hematogenous seeding/occult infection. Ceftriaxone 2 grams Q 24 for 28 days ( Stop date 06/16/2018) Your first dose will be at 9:00 am in the Same Stay Specialty Unit (Day Surgery). On weekends this you will go to the Medical/Surgical unit for infusions. This will be daily. Followup with Dr Robbi ANDREWS clinic on June 12 2018- 10.30AM. PICC line care - to be done at outpatient Same Day Surgery unit with daily injection of antibiotic. Keep dressing clean, dry and intact. Cover for showers. Use a heating pad on insertion site for first 24 hours of line being placed. CBC BMP weekly , Please fax results to Dr Robbi torrez at [phone]. Starting next Saturday04/25/18 and every saturday thereafter until Dr Culp tells you this is no longer needed. Reviewed risk and side effect profile of antibiotic. Untoward adverse reaction including C. difficile/interstitial nephritis. Side effects can be minimized by close follow-up with PCP/infectious disease specialist as advised. Prescriptions: cefTRIAXone NA/DEXTROSE,ISO [Ceftriaxone 2 gm Piggyback] 2 gm IV DAILY 28 Days #28 ml Other Amb Orders: Outpatient PICC Care Location: None Selected Basic Metabolic Panel Location: None Selected Complete Blood Count Location: None Selected - Follow up Plan Follow up with: Bam Culp MD [Physician] - 06/12/18 10:30 am Nate Arthur MD [Primary Care Provider] - 06/02/18 11:00 am Disposition: Home, Self-Care Prognosis: Fair Rehab Potential: Fair Medical - DS: Qual - VTE Deep Vein Thrombosis/Pulmonary Embolism Present on Admission: No
[2018-05-23] MEDS: LISINOPRIL 20 MG TABLET PO SCH (22:29)
[2018-05-24 05:50] LABS: Mean Cell Volume 98.4 fL (80.0-100.0); Mean Corpuscular HGB Conc 32.8 g/dL (31.0-36.0); Platelet Count 755 K/mcL (140-440); RBC 2.88 M/mcL (4.50-5.90); Red Cell Distribution Width 13.4 % (11.5-14.5)
[2018-05-24 06:28] LABS: ALT/SGPT 9 U/l (0-40); Albumin 2.2 gm/dL (3.2-5.2); Albumin/Globulin Ratio 0.6 (1.0-2.3); Alkaline Phosphatase 107 U/L (39-117); Bilirubin,Direct < 0.2 mg/dL (0.0-0.3); Blood Urea Nitrogen 12 mg/dl (8-23); Gamma Glutamyl Transpeptidase 29 U/L (8-61); Uric Acid 4.9 mg/dL (2.5-8.0)
[2018-05-24 06:48] LABS: Band Neutrophils % 4 % (0-10); Lymphocytes % 11 % (15-49); Metamyelocytes % 1 % (0-0); Monocytes % (Manual) 15 % (1-12); Platelet Estimate MK INCR (NORMAL); RBC Morphology NORMAL (NORMAL); Segmented Neutrophils % 69 % (38-78)
[2018-05-24] MEDS: INSULIN LISPRO 1 UNIT/0.01 ML UNIT SQ SCH ×3 (08:23→18:20)
[2018-05-24] MEDS: amLODIPine 10 MG TABLET PO SCH (10:02)
[2018-05-24] MEDS: ENOXAPARIN 40 MG/0.4 ML SYRINGE SQ SCH (10:02)
[2018-05-24] MEDS: cefTRIAXone 2 GM in DEXTROSE 5% IN WATER 50 ML IV SCH (10:04)
[2018-05-24] MEDS: 0.9 % SODIUM CHLORIDE 10 ML SYRINGE IV SCH (10:04)
[2018-05-24] MEDS: AZITHROMYCIN 500 MG in DEXTROSE 5% IN WATER 250 ML IV SCH (10:41)
--- NOTE | 2018-06-10 12:55 | Operative Note ---
DATE OF OPERATION: 05/17/2018 PREOPERATIVE DIAGNOSIS: Septic left knee. POSTOPERATIVE DIAGNOSES: Septic left knee plus meniscal tear. PROCEDURE: I and D with meniscal debridement. SURGEON: Froylan Zarate M.D. LINE TENDER FLAKEBOARD: Abilio Cao PA-C. ANESTHESIA: GETA. COMPLICATIONS: None. ESTIMATED BLOOD LOSS: 5 mL. GRAFTS/IMPLANTS: None. SPECIMENS/PATHOLOGY: None sent. CONDITION: Stable. DISPOSITION: PACU. FINDINGS: A tear in medial meniscus complex. OPERATION IN DETAIL: Informed consent was obtained, and the patient was taken to the operating room. He was provided with appropriate anesthetic and antibiotics were held until we could obtain culture. I placed a Veress needle in the suprapatellar pouch. Standard inferior, medial and lateral parapatellar portals were placed. The scope was inserted and extensive irrigation was performed. A shaver was inserted and hypertrophied, angry-looking synovium was debrided. Anything that appeared to be semi-necrotic or not healthy and viable was debrided. We did look in the medial and lateral compartments. There was a large complex medial meniscal tear. This was debrided with a variety of meniscal biters and the shaver. This was debrided back to a stable base. We continued with a thorough irrigation, inspected both compartments and the suprapatellar pouch. The major ligaments appeared to be intact. A deep drain was placed, and the patient leaves the operating room in excellent condition. There were no complications of this procedure. The wounds were closed with 3-0 nylon. GDD:bennie Job ID: [id number] Doc ID: [id number] Froylan Zarate MD
== END 2018-05-24 16:30 | disposition home or self-care (01) ==
LOC: ED 19:03 → MEDSUR 23:44
PROVIDERS: ADMIT Internal Medicine; ATTEND Internal Medicine